=== PATIENT | male | born 1960 | race Caucasian/White ===

== ENCOUNTER 2020-08-04 14:40 | Outpatient (REF) | payer OTHER, SELFPAY ==
[2020-08-04 16:10] LABS: Glucose Urine UA NEG (NEG); Leukocyte Esterase Urine NEG (NEG); Nitrite Urine NEG (NEG); Specific Gravity - Urine 1.015 (1.005-1.025); Urine Blood NEG (NEG); Urine Ketones NEG (NEG); Urine Protein NEG (NEG-TRACE)
[2020-08-04 16:11] LABS: Appearance Urine CLEAR; Color Urine YELLOW
== END 2020-08-04 14:41 | disposition home or self-care (01) ==
LOC: HO.LAB 14:40
PROVIDERS: PCP Internal Medicine; Visit Provider Internal Medicine
DX: R30.0 Dysuria (principal); R35.0 Frequency of micturition
CPT/HCPCS: 81003; 87086

== ENCOUNTER 2021-02-08 19:09 | Emergency (ER) | payer OTHER, SELFPAY ==
--- NOTE | ~2021-02-08 | CT_ITS ---
EXAMINATION: CT ABDOMEN AND PELVIS WITH CONTRAST CLINICAL INFORMATION: Left lower quadrant, left flank pain COMPARISON: None TECHNIQUE: Multidetector volumetric images were obtained from the superior aspect of the liver through the pubic symphysis following administration 100 mL of Omnipaque 350 intravenous contrast. Sagittal and coronal reformatted images were obtained on the technologist's workstation. Oral contrast: No This CT examination was performed using dose optimization techniques as appropriate, variously including the following: *Automated exposure control *Adjustment of mA and/or kV according to patient size (this includes techniques or standardized protocols for targeted exams where dose is matched to indication/reason for exam; i.e. extremities or head) *Use of iterative reconstruction technique DLP: 99 mGy-cm FINDINGS: LUNG BASES: The visualized lung bases are unremarkable. LIVER, GALLBLADDER, AND BILIARY TREE: The liver is normal in size, shape, and attenuation. No focal hepatic lesion or biliary ductal dilatation is present. Cholelithiasis is noted. No appreciable gallbladder wall thickening or pericholecystic inflammation. PANCREAS: Unremarkable. SPLEEN: Unremarkable. ADRENAL GLANDS: Unremarkable. KIDNEYS AND URETERS: There is a distal left ureteral calculus measuring 3 mm with moderate hydronephrosis and perinephric stranding. Left nephrogram is also slightly delayed. A few hypodense left renal lesions favor cysts measuring up to 7.3 cm, and this largest cyst contains scattered peripheral curvilinear calcification measuring up to 2 mm in thickness. Small cysts are also noted in the right kidney. No right-sided hydronephrosis or obstructive calculus. BLADDER: Minimally distended and grossly unremarkable. GASTROINTESTINAL TRACT: No evidence of bowel obstruction or significant wall thickening. The appendix is unremarkable. No free fluid or free air is seen. ABDOMINAL WALL: No significant hernia is appreciated. LYMPH NODES: Normal. VASCULAR: Unremarkable. PELVIC VISCERA: Unremarkable. OSSEOUS STRUCTURES: Scattered degenerative changes are noted in the spine. CT/CT abdomen pelvis w con IMPRESSION: 1. Distal left ureteral calculus measuring 3 mm with moderate hydronephrosis. 2. Bilateral renal cysts, measuring up to 7.3 cm in the left kidney with scattered peripheral calcifications. Appearance favors a minimally complex cyst (Bosniak IIF), for which follow-up imaging is recommended at 6 months, 12 months, and then annually for 5 years. 3. Cholelithiasis. Fleischner guidelines were followed.
[2021-02-08 20:16] VITALS: BP 151/71; PULSE 64; RESP 20; TEMP 36.8; O2SAT 95; BMI 40.1
--- NOTE | 2021-02-08 22:43 | ED_ITS ---
HPI - Abdominal Pain General Chief Complaint: Abdominal Pain Stated Complaint: constipated and lower abd pain Time Seen by Provider: 02/08/21 22:40 Source: patient Limitations: no limitations History of Present Illness HPI narrative: This is a 60-year-old male who complains of pain in his left lower abdomen and left lower back. The patient had had diarrhea a few days ago. He has also had a head cold with postnasal drip for several days and also had noted that it increased mucus production per rectum in the last few days. He did have a bowel movement yesterday. Today in order to try to get rid of the mucus, thick [place] magnesia at around 10:00 o'clock this morning. Subsequently had some nausea and vomiting. His pain is minor now. He denies any dysuria or urinary frequency or hematuria. Has noted the last month that he has had sometimes a sudden urge to urinate. He denies any fever. Denies any cough or shortness of breath. Related Data Previous Rx's Medication Instructions Recorded ibuprofen 600 mg tablet 600 mg PO Q6H PRN #30 tab 02/09/21 ondansetron HCl 4 mg tablet 4 mg PO Q6H PRN #10 tab 02/09/21 tamsulosin 0.4 mg capsule (Flomax) 0.4 mg PO BEDTIME #14 cap 02/09/21 Allergies Allergy/AdvReac Type Severity Reaction Status Date / Time No Known Allergies Allergy Unverified 10/28/19 16:29 Review of Systems Review of Systems Yes all other systems are reviewed and are negative Constitutional: Reports as per HPI Eyes: Reports as per HPI and Reports no additional eye complaints Reports nasal congestion and Reports nasal discharge Cardiovascular: Denies chest pain and Denies dyspnea Respiratory: Denies cough and Denies dyspnea Gastrointestinal: Reports abdominal pain Genitourinary: Reports as per HPI Musculoskeletal: Reports no additional musculoskeletal complaints and Denies numbness Skin/Breast: Reports as per HPI and Denies rash Reports as per HPI, Denies focal weakness, Denies numbness and Denies Sensory deficit (Neuro) Psychiatric: Reports no additional psychiatric complaints and Reports as per HPI Endocrine: Reports no additional endocrine complaints and Reports as per HPI Hematologic/Lymphatic: Reports no additional hematologic/lymphatic complaints, Reports as per HPI and Reports other (No peripheral edema) Physical Exam Vital Signs: Vital Signs: Last Vital Signs Temp 98.3 F 02/08/21 20:16 Pulse 64 02/08/21 20:16 Resp 20 02/08/21 20:16 BP 151/71 H 02/08/21 20:16 Pulse Ox 95 02/08/21 20:16 BMI result Body Mass Index 40.1 Const: Other: Patient not ill-appearing, readily sits up and stands up, has no abdominal tenderness General: cooperative, no acute distress and alert Orientation/consciousness: patient oriented x3 HENMT: Head: Yes normal to inspection Eyes: General: appearance normal, both eyes and all related structures Eyelids: Yes eyelids normal Conjunctivae: conjunctivae normal Pupils: Equal, round and reactive pupils present Neck: Neck: Yes normal visual inspection and Yes supple Chest: Chest palpation & inspection: normal inspection of the chest Resp: Effort & Inspection: normal respiratory effort Auscultation: clear to auscultation bilaterally Cardio: Rate: regular rate Rhythm: regular rhythm Heart sounds: S1 normal heart sound present, S2 normal heart sound present, no gallops, no murmurs and no rubs GI: Palpation (GI): Soft to palpation, nontender and Other GI palpation findings present (Non-distended) Auscultation: normal bowel sounds Skin: General skin exam: no rashes or lesions noted Neuro: General: patient oriented x3, no focal motor deficits and CN's II-XI intact bilaterally Cranial nerves: Yes Equal, round and reactive pupils present Cognition (Neuro): normal cognition Motor exam (neuro): 5/5 motor strength present throughout Sensory Exam: No Sensory deficit (Neuro) Extrem: General: Yes normal to inspection and Yes no pedal edema Psych: Appearance: grossly normal Affect: normal affect MDM - Abdominal Pain MDM Narrative Medical decision making narrative: patient with mild left lower quadrant and left lower back pain her few days. Patient had noted mucoid stool and had taken milk of magnesia had subsequent nausea and vomiting. Patient had a benign abdominal exam. Microscopic hematuria recess patient for kidney stone, though given theelevated white blood cell count, and intestinal process such as diverticulitis was also in the differential. Patient was improved with Toradol 15 mg IV and was able to fall asleep. Patient has a 3 mm left-sided ureteral stone with moderate hydronephrosis, also has renal cysts which require follow- up. Patient is being referred to Urology and started on Flomax, ibuprofen, Zofran Lab Data Attestation: I reviewed the patient's lab results. Result diagrams: 02/08/21 23:08 02/08/21 23:08 Labs: Lab Results 02/08/21 02/08/21 02/08/21 Range/Units 23:07 23:08 23:08 WBC 16.2 H (4.8-10.8) X10*3/uL RBC 5.45 (4.60-5.80) X10*6/uL Hgb 16.6 (14.0-18.0) g/dl Hct 48.3 (42.0-52.0) % MCV 88.6 (80.0-98.0) fL MCH 30.5 (27.0-33.0) pg MCHC 34.4 (31.0-36.0) g/dl RDW 12.9 (11.0-16.0) % Plt Count 219 (160-400) X10*3/uL MPV 9.6 (9.4-12.4) fL Immature Gran % (Auto) 0.4 (0.0-0.4) % Neut % (Auto) 82.7 H (45-73) % Lymph % (Auto) 6.2 L (20-40) % [place] % (Auto) 10.1 (2-11) % Eos % (Auto) 0.1 (0-4) % Baso % (Auto) 0.5 (0-2) % Lymph # (Auto) 1.0 L (1.2-4.9) X10*3/uL [place] # (Auto) 1.6 H (0.1-1.2) X10*3/uL Eos # (Auto) 0.0 (0.0-0.4) X10*3/uL Baso # (Auto) 0.1 (0.0-0.2) X10*3/uL Abs Immat Gran (auto) 0.06 H (0.00-0.03) X10*3/uL Absolute Neuts (auto) 13.4 H (2.0-8.3) x10*3/uL Absolute Nucleated RBC 0.000 (0.0-0.012) X10*3/uL Nucleated RBC % (auto) 0.0 (0.0-0.2) /100WBC Smear Tech's Comments VERIFIED Sodium 138 (135-145) mmol/L Potassium 4.3 (3.3-5.1) mmol/L Chloride 99 (96-108) mmol/L Carbon Dioxide 31 H (22-29) mmol/L Anion Gap 12 (12-20) BUN 13 (9-16) mg/dL Creatinine 1.43 H (0.5-1.4) mg/dL Estim Creat Clear Calc 74.4 Estimated GFR 51 Random Glucose 124 H (60-115) mg/dL Calcium 9.2 (8.4-10.2) mg/dL Total Bilirubin 1.2 H (0.0-1.0) mg/dL AST 22 (5-37) U/L ALT 31 (0-40) U/L Alkaline Phosphatase 97 (39-117) U/L Total Protein 7.7 (6.5-8.0) g/dL Albumin 4.4 (3.5-5.0) g/dL Urine Color YELLOW Urine Appearance CLEAR Urine pH 7.0 (5.0-8.0) Ur Specific [place] 1.020 (1.005-1.025) Urine Protein 1+ H (NEG-TRACE) MG/DL Urine Glucose (UA) NEG (NEG) MG/DL Urine Ketones 5 (NEG) MG/DL Urine Blood 1+ H (NEG) Urine Nitrite NEG (NEG) Ur Leukocyte Esterase NEG (NEG) Urine RBC 5-9 H (0) /HPF Urine WBC 0-2 (0-4) /HPF Ur Squamous Epith Cells TRACE /LPF Urine Bacteria NONE /LPF COVID-19 (BRIGIDO) (Negative) COVID-19 Clin Com 02/08/21 Range/Units 23:08 WBC (4.8-10.8) X10*3/uL RBC (4.60-5.80) X10*6/uL Hgb (14.0-18.0) g/dl Hct (42.0-52.0) % MCV (80.0-98.0) fL MCH (27.0-33.0) pg MCHC (31.0-36.0) g/dl RDW (11.0-16.0) % Plt Count (160-400) X10*3/uL MPV (9.4-12.4) fL Immature Gran % (Auto) (0.0-0.4) % Neut % (Auto) (45-73) % Lymph % (Auto) (20-40) % [place] % (Auto) (2-11) % Eos % (Auto) (0-4) % Baso % (Auto) (0-2) % Lymph # (Auto) (1.2-4.9) X10*3/uL [place] # (Auto) (0.1-1.2) X10*3/uL Eos # (Auto) (0.0-0.4) X10*3/uL Baso # (Auto) (0.0-0.2) X10*3/uL Abs Immat Gran (auto) (0.00-0.03) X10*3/uL Absolute Neuts (auto) (2.0-8.3) x10*3/uL Absolute Nucleated RBC (0.0-0.012) X10*3/uL Nucleated RBC % (auto) (0.0-0.2) /100WBC Smear Tech's Comments Sodium (135-145) mmol/L Potassium (3.3-5.1) mmol/L Chloride (96-108) mmol/L Carbon Dioxide (22-29) mmol/L Anion Gap (12-20) BUN (9-16) mg/dL Creatinine (0.5-1.4) mg/dL Estim Creat Clear Calc Estimated GFR Random Glucose (60-115) mg/dL Calcium (8.4-10.2) mg/dL Total Bilirubin (0.0-1.0) mg/dL AST (5-37) U/L ALT (0-40) U/L Alkaline Phosphatase (39-117) U/L Total Protein (6.5-8.0) g/dL Albumin (3.5-5.0) g/dL Urine Color Urine Appearance Urine pH (5.0-8.0) Ur Specific [place] (1.005-1.025) Urine Protein (NEG-TRACE) MG/DL Urine Glucose (UA) (NEG) MG/DL Urine Ketones (NEG) MG/DL Urine Blood (NEG) Urine Nitrite (NEG) Ur Leukocyte Esterase (NEG) Urine RBC (0) /HPF Urine WBC (0-4) /HPF Ur Squamous Epith Cells /LPF Urine Bacteria /LPF COVID-19 (BRIGIDO) Negative (Negative) COVID-19 Clin Com See Note Imaging Data CT of the abdomen pelvis with IV contrast: Radiologist's impression: IMPRESSION: 1.? Distal left ureteral calculus measuring 3 mm with moderate hydronephrosis.? 2.? Bilateral renal cysts, measuring up to 7.3 cm in the left kidney with scattered peripheral calcifications. Appearance favors a minimally complex cyst (Bosniak IIF), for which follow-up imaging is recommended at 6 months, 12 months, and then annually for 5 years. 3.? Cholelithiasis. Discharge Plan Discharge Clinical Impression: Colic, ureteral, Renal cyst Patient Disposition: Home, Self-Care Instructions: Renal Colic (ED), Kidney Cyst (ED) Additional Instructions: use the Flomax as prescribed to help the kidney stone pass. Use ibuprofen for pain. Used density done as prescribed for nausea. Follow-up with Urology. Need to have repeat imaging of your kidneys done in 6 months to re-evaluate your cysts. Follow-up with your primary care physician with Urologyregarding this. Return for any new or worsened symptoms Prescriptions: New tamsulosin [Flomax] 0.4 mg capsule 0.4 mg PO BEDTIME Qty: 14 RF: 0 ondansetron HCl 4 mg tablet 4 mg PO Q6H PRN (Reason: nausea and vomiting) Qty: 10 RF: 0 ibuprofen 600 mg tablet 600 mg PO Q6H PRN (Reason: pain) Qty: 30 RF: 0 Referrals: Rafael Garcia MD [Physician] - 2 days [facility] Past Medical History Medical History (Updated 02/09/21 @ 00:48 by Phan Pineda MD) High cholesterol Hypertension Social History Social History Patient Tobacco Use Status: Never used Tobacco Use of substances other than those prescribed or required for medical reasons: No Advance Directives: No Advance Directives Information Provided: No
--- NOTE | 2021-02-08 22:46 | PC.NURSE ---
pt a&o, no sob or chest pain, pt reports having a head cold last week. he reports having mucus stool and watery. pt able to walk out of bed wit a steady gait.
[2021-02-08] MEDS: Ketorolac Tromethamine 30 MG/ML VIAL 15 MG IVPUSH (23:12)
[2021-02-08 23:13] LABS: Basophils Absolute Auto 0.1 X10*3/uL (0.0-0.2); Basophils Percent Auto 0.5 % (0-2); Eosinophils Percent Auto 0.1 % (0-4); Hematocrit 48.3 % (42.0-52.0); Hemoglobin 16.6 g/dl (14.0-18.0); Imm Gran Abs Auto 0.06 X10*3/uL (0.00-0.03); Imm Gran Pct Auto 0.4 % (0.0-0.4); Lymphocytes Percent Auto 6.2 % (20-40); MANUAL DIFF FLAG SCAN; Mean Corpuscular HGB Conc 34.4 g/dl (31.0-36.0); Mean Corpuscular Hemoglobin 30.5 pg (27.0-33.0); Mean Corpuscular Volume 88.6 fL (80.0-98.0); Mean Platelet Volume 9.6 fL (9.4-12.4); Monocytes Absolute Auto 1.6 X10*3/uL (0.1-1.2); Monocytes Percent Auto 10.1 % (2-11); Neutrophils Absolute Auto 13.4 x10*3/uL (2.0-8.3); Neutrophils Percent Auto 82.7 % (45-73); Platelet Count 219 X10*3/uL (160-400); Red Blood Count 5.45 X10*6/uL (4.60-5.80); Red Cell Distribution Width 12.9 % (11.0-16.0); SCAN SMEAR FLAG 1; White Blood Count 16.2 X10*3/uL (4.8-10.8)
[2021-02-08 23:23] LABS: Appearance Urine CLEAR; Color Urine YELLOW; Glucose Urine UA NEG (NEG); Leukocyte Esterase Urine NEG (NEG); Nitrite Urine NEG (NEG); UACC Culture Trigger NO; Urine Blood 1+ (NEG); Urine Ketones 5 MG/DL (NEG); Urine Protein 1+ MG/DL (NEG-TRACE)
[2021-02-08 23:27] LABS: COVID-19 Test Negative (Negative)
[2021-02-08 23:29] LABS: Squamous Epithelial Cell Urine TRACE /LPF; WBC Urine 0-2 /HPF (0-4)
--- NOTE | 2021-02-08 23:29 | PC.NURSE ---
repositioned pt, iv placed, labs collected and medicated per Apr.
[2021-02-08 23:30] LABS: SLIDE REVIEW VERIFIED
[2021-02-08 23:34] LABS: Alanine Aminotransferase 31 U/L (0-40); Albumin Level 4.4 g/dL (3.5-5.0); Alkaline Phosphatase 97 U/L (39-117); Anion Gap 12 (12-20); Aspartate Amino Transferase 22 U/L (5-37); Bilirubin Total 1.2 mg/dL (0.0-1.0); Blood Urea Nitrogen 13 mg/dL (9-16); Calcium 9.2 mg/dL (8.4-10.2); Carbon Dioxide 31 mmol/L (22-29); Chloride 99 mmol/L (96-108); Creatinine Clr Calc Pharmacy 74.4; Estimated Glomerular Filt Rate 51; Glucose Random 124 mg/dL (60-115); Potassium 4.3 mmol/L (3.3-5.1); Sodium 138 mmol/L (135-145); Total Protein 7.7 g/dL (6.5-8.0)
[2021-02-08] MEDS: iohexoL 350 MG/ML 100 ML INFUS..BTL IV (23:58)
[2021-02-09 01:03] VITALS: BP 128/64; PULSE 65; RESP 15; TEMP 36.8; O2SAT 94
== END 2021-02-09 01:17 | disposition home or self-care (01) ==
PROVIDERS: Emergency Provider Emergency Medicine; PCP Internal Medicine
DX: K59.00 Constipation, unspecified (principal); N28.1 Cyst of kidney, acquired; N28.89 Other specified disorders of kidney and ureter; Z79.899 Other long term (current) drug therapy; Z20.822 Contact with and (suspected) exposure to COVID-19
CPT/HCPCS: 36415; 74177; 80053; 81001; 85025; 87635; 96374; 99284; J1885; Q9967

== ENCOUNTER 2021-02-15 12:46 | Outpatient (REF) | payer OTHER, SELFPAY ==
[2021-02-15 14:42] LABS: Anion Gap 10 (12-20); Blood Urea Nitrogen 13 mg/dL (9-16); Calcium 9.2 mg/dL (8.4-10.2); Carbon Dioxide 31 mmol/L (22-29); Chloride 105 mmol/L (96-108); Estimated Glomerular Filt Rate > 60; Glucose Random 98 mg/dL (60-115); Potassium 4.5 mmol/L (3.3-5.1); Sodium 141 mmol/L (135-145)
== END 2021-02-15 12:47 | disposition home or self-care (01) ==
LOC: HO.10HDL 12:46
PROVIDERS: Visit Provider Internal Medicine
DX: I10 Essential (primary) hypertension (principal)
CPT/HCPCS: 36415; 80048

== ENCOUNTER 2021-02-21 12:00 | Outpatient (REF) | payer OTHER, SELFPAY ==
--- NOTE | ~2021-02-21 | US_ITS ---
EXAMINATION: US RETROPERITONEAL COMPLETE (RENAL) CLINICAL INFORMATION: Left renal stone. COMPARISON: CT abdomen/pelvis 01/09/2021 TECHNIQUE: Real-time imaging of the kidneys and bladder. FINDINGS: RIGHT KIDNEY: 12.6 x 5.4 x 5.6 cm (SAG x AP x TRV). The kidney is normal in size, contour, and echogenicity. Renal cortical thickness is normal. No calculi. No hydronephrosis. Midpole cyst measures 6 x 6 x 6 mm. Lower pole cyst measures 7 x 6 x 8 mm. LEFT KIDNEY: 13.2 x 5.8 x 6.1 cm (SAG x AP x TRV). The kidney is normal in size, contour, and echogenicity. Renal cortical thickness is normal. No calculi. No hydronephrosis. Complex lower pole cyst with echogenic debris measures 8.0 x 5.0 x 6.5 cm. Midpole cyst measures 2.0 x 2.1 x 2.5 cm. Lower pole cyst measures 1.1 x 0.8 x 0.7 cm. BLADDER: Well distended and normal. Bilateral ureteral jets are demonstrated. Prevoid bladder volume is 382 mL. Postvoid bladder volume is 55 mL. US/US retroperitoneal comp IMPRESSION: Bilateral renal cysts including a complex dominant left lower pole cyst with echogenic debris. Short interval follow-up is recommended. Small postvoid residual volume in the urinary bladder.
== END 2021-02-21 12:01 | disposition home or self-care (01) ==
LOC: HO.US 12:00
PROVIDERS: PCP Internal Medicine; Visit Provider Internal Medicine
DX: N13.2 Hydronephrosis with renal and ureteral calculous obstruction (principal)
CPT/HCPCS: 76770

== ENCOUNTER → 2021-03-05 14:19 | Outpatient (BNVA) | payer OTHER, SELFPAY | PROVIDERS: PCP Internal Medicine ==

== ENCOUNTER 2021-05-14 13:45 | Outpatient (REF) | payer OTHER, SELFPAY ==
--- NOTE | ~2021-05-14 | US_ITS ---
EXAMINATION: US RETROPERITONEAL LIMITED (RENAL ONLY) CLINICAL INFORMATION: Calculus of kidney. COMPARISON: None TECHNIQUE: Real-time imaging of the kidneys. FINDINGS: RIGHT KIDNEY: 12.4 x 5.1 x 6.5 cm (SAG x AP x TRV). The kidney is normal in size, contour, and echogenicity. Renal cortical thickness is normal. No renal calculi or hydronephrosis. There are multiple anechoic liver cysts. The largest cyst midpole measures 1.7 x 2.0 x 1.6 cm. LEFT KIDNEY: 12.6 x 7.0 x 6.2 cm (SAG x AP x TRV). The kidney is normal in size, contour, and echogenicity. Renal cortical thickness is normal. There are no echogenic renal calculi. There is a prominent extrarenal pelvis or hydronephrosis. There are multiple anechoic liver cysts. The largest in mid to lower pole lateral cortex measures 8.0 x 4.7 x 7.5 cm. Previously it was reported as complex in the lower pole and measured 8.0 x 5.0 x 6.5 cm. US/US renal BI IMPRESSION: Bilateral renal cysts. Mild hydronephrosis versus extrarenal pelvis left kidney.
== END 2021-05-14 13:46 | disposition home or self-care (01) ==
LOC: HO.US 13:45
DX: N20.0 Calculus of kidney (principal)
CPT/HCPCS: 76775

== ENCOUNTER → 2021-06-01 14:50 | Outpatient (BNVA) | payer OTHER, SELFPAY | PROVIDERS: PCP Internal Medicine | DX: Z13.89 Encounter for screening for other disorder (principal) ==

== ENCOUNTER → 2021-07-13 13:56 | Outpatient (REF) | payer OTHER, SELFPAY ==
--- NOTE | 2021-07-13 14:00 | CA_ITS ---
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 Mildly dilated left ventricle with normal LV systolic function with LVEF of 60 65% 2. Normal cardiac valvular Doppler with no clear evidence of mitral valve prolapse on this study 3. Normal RV systolic pressure 4. No gross pericardial effusion Findings Procedure Information Contrast agent, definity, is being given per protocol without apparent complications. Left Ventricle Mildly increased left ventricular cavity size. There is normal left ventricular wall thickness. The left ventricular systolic function is normal. The visually estimated ejection fraction is between 60-65%. Spectral Doppler is indicative of a normal filling pattern. Right Ventricle The right ventricle was not well visualized. Atria The left atrium is likely dilated. There is lipomatous hypertrophy of the interatrial septum. There is no evidence of interatrial shunt. The right atrium was not well visualized. Aortic Valve Normal aortic valve structure and function. There is no aortic valve stenosis. There is no aortic valve regurgitation. Mitral Valve There is mild anterior mitral leaflet thickening. There is no mitral valve prolapse. There is no mitral valve regurgitation. There is no mitral valve stenosis. Pulmonic Valve The pulmonic valve was not well visualized. Tricuspid Valve Likely normal tricuspid valve structure and function. There is trace tricuspid valve regurgitation. The right ventricular systolic pressure is normal. The right ventricular systolic pressure is 13 mmHg. Normal right atrial pressure. There is no evidence of pulmonary hypertension. Great Vessels All visible segments of the aorta are normal in size. The pulmonary artery was not well visualized. Venous The inferior vena cava is normal in size and collapses greater than 50% with inspiration. Pericardium/Pleural There is no evidence of pericardial effusion. Prior Study Comparison No prior study available for comparison. Measurements 2D Linear Measurements IVSd: 1.05 0.6-0.9/0.6-1.0 cm LVIDd: 5.81 3.9-5.3/4.2-5.9 cm LVIDd Index: 2.40 2.4-3.2/2.2-3.1 cm/m2 LVIDs: 3.64 2.0-3.6 cm LVPWd: 0.98 0.7-1.1 cm LA Diam: 4.20 2.7-3.8/3.0-4.0 cm LAIDs Index: 1.74 1.5-2.3 cm/m2 LV Mass: 297.58 67-162/88-224 g LV Mass Index: 122.97 43-95/49-115 g/m2 LVOT Diam: 2.40 3.0+(-)1.3 cm 2D Systolic Function EF 4C: 67.20 >55% EF 2C: 59.00 >55% EF BiP: 63.30 >55% Mitral Valve MV Pk E: 0.70 MV PK A: 0.61 MV Decel Time: 180.00 E/A: 1.20 E'Lateral: 14.00 E'Medial: 12.30 E/E' Med: 5.70 E/E' Lat: 5.00 PHT: 53.00 MVA PHT: 4.15 Decel [place]: 3.92 Aortic Valve AoV Pk [place]: 1.64 AoV Mn [place]: 1.16 AoV VTI: 0.28 AoV Pk Grad: 11.00 Aov Mn Grad: 6.00 MARLON Cont.VTI: 3.03 LVOT LVOT Pk [place]: 1.01 LVOT Mn [place]: 0.70 LVOT VTI: 0.19 LVOT Pk Grad: 4.00 LVOT Mn Grad: 2.00 LVOT Diam: 2.40 LVOT Area: 4.52 Diastolic Function MV Pk E: 0.70 MV Pk A: 0.61 E/A: 1.20 E'Medial: 12.30 E/E' Med: 5.70 E' Laterial: 14.00 E/E' Lat: 5.00 Right Ventricle TAPSE (mm): 24.00 TVS' [place]: 15.00 Tricuspid Valve TR Pk [place]: 1.60 TR Pk Grad: 10.00 RA Press: 3.00 RVSP: 13.00 Great Vessels Aorta Ao Asc: 3.70 2.1-3.4 cm Updated in Other Vendor System with Status of Final Abhijeet Mar MD electronically signed on 07/14/2021 12:39:41 PM with status of Final
== END ==
LOC: HO.CARD 13:56
PROVIDERS: PCP Internal Medicine; Visit Provider Internal Medicine
DX: I34.1 Nonrheumatic mitral (valve) prolapse (principal); I45.10 Unspecified right bundle-branch block; I44.4 Left anterior fascicular block
CPT/HCPCS: 93306; Q9957

== ENCOUNTER 2021-08-21 12:44 | Outpatient (REF) | payer OTHER, SELFPAY ==
[2021-08-21 12:53] LABS: MANUAL DIFF FLAG NO
[2021-08-21 13:22] LABS: Basophils Absolute Auto 0.1 X10*3/uL (0.0-0.2); Basophils Percent Auto 0.8 % (0-2); Eosinophils Absolute Auto 0.2 X10*3/uL (0.0-0.4); Eosinophils Percent Auto 1.6 % (0-4); Hematocrit 45.1 % (42.0-52.0); Hemoglobin 15.2 g/dl (14.0-18.0); Imm Gran Abs Auto 0.04 X10*3/uL (0.00-0.03); Imm Gran Pct Auto 0.4 % (0.0-0.4); Lymphocytes Absolute Auto 1.8 X10*3/uL (1.2-4.9); Lymphocytes Percent Auto 19.1 % (20-40); Mean Corpuscular HGB Conc 33.7 g/dl (31.0-36.0); Mean Corpuscular Hemoglobin 29.7 pg (27.0-33.0); Mean Corpuscular Volume 88.3 fL (80.0-98.0); Mean Platelet Volume 9.6 fL (9.4-12.4); Monocytes Absolute Auto 0.7 X10*3/uL (0.1-1.2); Monocytes Percent Auto 7.6 % (2-11); Neutrophils Absolute Auto 6.5 x10*3/uL (2.0-8.3); Neutrophils Percent Auto 70.5 % (45-73); Platelet Count 240 X10*3/uL (160-400); Red Blood Count 5.11 X10*6/uL (4.60-5.80); Red Cell Distribution Width 13.5 % (11.0-16.0); White Blood Count 9.2 X10*3/uL (4.8-10.8)
[2021-08-21 13:55] LABS: Alanine Aminotransferase 33 U/L (0-40); Albumin Level 4.2 g/dL (3.5-5.0); Alkaline Phosphatase 79 U/L (39-117); Anion Gap 11 (12-20); Aspartate Amino Transferase 25 U/L (5-37); Bilirubin Total 0.8 mg/dL (0.0-1.0); Blood Urea Nitrogen 12 mg/dL (9-16); Carbon Dioxide 28 mmol/L (22-29); Chloride 105 mmol/L (96-108); Cholesterol 115 mg/dL; Estimated Glomerular Filt Rate > 60; Glucose Fasting 88 mg/dL (60-99); HDL Cholesterol 38 mg/dL; LDL Cholesterol Calculated 61 mg/dl; Potassium 4.5 mmol/L (3.3-5.1); Sodium 139 mmol/L (135-145); Triglycerides 80 mg/dL
[2021-08-21 14:18] LABS: Prostate Specific Antigen 0.46 ng/mL (<0.05-4.0)
== END 2021-08-21 12:45 | disposition home or self-care (01) ==
LOC: HO.LAB 12:44
PROVIDERS: PCP Internal Medicine; Visit Provider Internal Medicine
DX: Z00.00 Encounter for general adult medical examination without abnormal findings (principal); Z12.5 Encounter for screening for malignant neoplasm of prostate
CPT/HCPCS: 36415; 80053; 80061; 84153; 85025

== ENCOUNTER 2022-05-27 08:19 | Outpatient (REF) | payer OTHER, SELFPAY ==
--- NOTE | ~2022-05-27 | US_ITS ---
EXAMINATION: US RETROPERITONEAL LIMITED (RENAL ONLY) CLINICAL INFORMATION: Cyst of kidney, acquired. COMPARISON: Ultrasound retroperitoneal limited (renal only) 05/14/2021. Ultrasound retroperitoneal complete (renal) 02/21/2021. CT abdomen and pelvis with contrast 02/08/2021. TECHNIQUE: Real-time imaging of the kidneys. FINDINGS: RIGHT KIDNEY: 13.1 x 6.6 x 7.4 cm (SAG x AP x TRV). The kidney is normal in size, contour, and echogenicity. Renal cortical thickness is normal. No renal calculi or hydronephrosis. 2.1 cm simple cyst in the mid kidney. 0.8 cm simple cyst in the mid kidney. LEFT KIDNEY: 13.3 x 8.5 x 5.3 cm (SAG x AP x TRV). The kidney is normal in size, contour, and echogenicity. Renal cortical thickness is normal. No renal calculi or hydronephrosis. 7.5 cm unilocular cyst with layering debris in the lower pole. 2.6 cm simple cyst in the midpole. 1.8 cm simple cyst in the midpole. 1.2 cm simple cyst in the midpole. 2.7 cm simple cyst in the midpole US/US renal BI IMPRESSION: Stable 7.5 cm unilocular cyst in the lower pole the left kidney with layering debris. This has been previously designated Bosniak 2F based on CT 02/08/2021. Recommend continued annual follow-up out to 5 years as previously recommended. The simple cyst requiring no follow-up.
== END 2022-05-27 08:20 | disposition home or self-care (01) ==
LOC: HO.US 08:19
PROVIDERS: PCP Internal Medicine; Visit Provider Nurse Practitioner Family
DX: N20.0 Calculus of kidney (principal); N28.1 Cyst of kidney, acquired
CPT/HCPCS: 76775

== ENCOUNTER → 2022-06-03 14:11 | Outpatient (BNVA) | payer OTHER, SELFPAY | PROVIDERS: PCP Internal Medicine; Visit Provider Nurse Practitioner Family | DX: Z13.89 Encounter for screening for other disorder (principal) ==

== ENCOUNTER 2023-03-15 07:32 | Outpatient (REF) | payer OTHER, SELFPAY ==
[2023-03-15 07:59] LABS: MANUAL DIFF FLAG NO
[2023-03-15 09:15] LABS: Basophils Absolute Auto 0.1 X10*3/uL (0.0-0.2); Basophils Percent Auto 1.1 % (0-2); Eosinophils Absolute Auto 0.1 X10*3/uL (0.0-0.4); Eosinophils Percent Auto 1.9 % (0-4); Hematocrit 46.8 % (42.0-52.0); Hemoglobin 15.9 g/dl (14.0-18.0); Imm Gran Abs Auto 0.03 X10*3/uL (0.00-0.03); Imm Gran Pct Auto 0.4 % (0.0-0.4); Lymphocytes Absolute Auto 1.5 X10*3/uL (1.2-4.9); Lymphocytes Percent Auto 20.2 % (20-40); Mean Corpuscular Hemoglobin 30.1 pg (27.0-33.0); Mean Corpuscular Volume 88.5 fL (80.0-98.0); Mean Platelet Volume 10.8 fL (9.4-12.4); Monocytes Absolute Auto 0.7 X10*3/uL (0.1-1.2); Monocytes Percent Auto 9.3 % (2-11); Neutrophils Absolute Auto 4.8 x10*3/uL (2.0-8.3); Neutrophils Percent Auto 67.1 % (45-73); Platelet Count 228 X10*3/uL (160-400); Red Blood Count 5.29 X10*6/uL (4.60-5.80); Red Cell Distribution Width 13.3 % (11.0-16.0); White Blood Count 7.2 X10*3/uL (4.8-10.8)
[2023-03-15 10:17] LABS: Alanine Aminotransferase 37 U/L (0-40); Albumin Level 4.2 g/dL (3.5-5.0); Alkaline Phosphatase 78 U/L (39-117); Anion Gap 11 (12-20); Aspartate Amino Transferase 27 U/L (5-37); Bilirubin Total 0.6 mg/dL (0.0-1.0); Blood Urea Nitrogen 18 mg/dL (9-16); Calcium 9.4 mg/dL (8.4-10.2); Carbon Dioxide 27 mmol/L (22-29); Chloride 107 mmol/L (96-108); Cholesterol 103 mg/dL (<200); Estimated Glomerular Filt Rate > 60; Glucose Random 100 mg/dL (60-115); HDL Cholesterol 36 mg/dL (>40); LDL Cholesterol Calculated 56 mg/dL (<100); Potassium 4.4 mmol/L (3.3-5.1); Sodium 141 mmol/L (135-145); Total Protein 7.4 g/dL (6.5-8.0); Triglycerides 57 mg/dL (<150)
[2023-03-15 10:25] LABS: Prostate Specific Antigen 0.33 ng/mL (<0.05-4.0)
== END 2023-03-15 07:33 | disposition home or self-care (01) ==
LOC: HO.LAB 07:32
PROVIDERS: PCP Internal Medicine; Visit Provider Internal Medicine
DX: Z12.5 Encounter for screening for malignant neoplasm of prostate (principal); E78.00 Pure hypercholesterolemia, unspecified; I10 Essential (primary) hypertension; N40.0 Benign prostatic hyperplasia without lower urinary tract symptoms
CPT/HCPCS: 36415; 80053; 80061; 84153; 85025

== ENCOUNTER 2023-05-21 14:04 | Outpatient (REF) | payer OTHER, SELFPAY ==
--- NOTE | ~2023-05-21 | US_ITS ---
EXAMINATION: US RETROPERITONEAL LIMITED (RENAL ONLY) CLINICAL INFORMATION: Cyst of kidney, acquired. COMPARISON: Renal ultrasound 05/27/2022 and 05/14/2021. CT abdomen and pelvis 02/08/2021. TECHNIQUE: Real-time imaging of the kidneys. FINDINGS: RIGHT KIDNEY: 12.4 x 5.3 x 6.4 cm (SAG x AP x TRV). The kidney is normal in size, contour, and echogenicity. Renal cortical thickness is normal. No renal calculi or hydronephrosis. 1.9 cm simple cyst in the mid kidney. No imaging follow-up is recommended. LEFT KIDNEY: 11.9 x 5.7 x 5.2 cm (SAG x AP x TRV). The kidney is normal in size, contour, and echogenicity. Renal cortical thickness is normal. No renal calculi or hydronephrosis. There are multiple simple cysts, largest measuring 6.3 cm. Previous measurements across modalities range 7.3-8.0 cm. This dominant cyst was designated Bosniak [address]F [address] CT scan due to mural calcification which is not appreciated by ultrasound. Continued follow-up is recommended. US/US renal BI IMPRESSION: Stable/mildly decreased 6.3 cm cyst in the left kidney which is considered Bosniak 2F by prior CT scan. Continued annual follow-up is recommended.
== END 2023-05-21 14:05 | disposition home or self-care (01) ==
LOC: HO.US 14:04
PROVIDERS: PCP Internal Medicine; Visit Provider Nurse Practitioner Family
DX: N28.1 Cyst of kidney, acquired (principal); N20.0 Calculus of kidney
CPT/HCPCS: 76775

== ENCOUNTER 2023-06-09 13:33 | Outpatient (AMB) | payer OTHER, SELFPAY ==
--- NOTE | 2023-06-09 13:29 | MHC.OFFVIS ---
Intake Visit Reasons: 1y/US(set) Intake Note: Patient is present for follow up ultrasound results, kidney stone, and renal cyst Urology Medications: vitamin B6 Blood Thinner: none Welder Explosion Required: No Accompanied by: Self / Same As Patient Allergies No Known Allergies Allergy (Verified 06/09/23 20:49) Medication List - Last Reconciled 06/09/23 by PORFIRIO Kinney lisinopril 5 mg PO DAILY loratadine 10 mg PO DAILY pyridoxine (vitamin B6) 50 mg PO DAILY 90 days simvastatin 20 mg PO DAILY HPI Comments Details: Oc is a pleasant 62 year old male patient of Dr. Manning. He has a past medical history of renal cysts, nephrolithiasis, gallstones, hypercholesteremia, and hypertension. He presents to the office today for a follow up of his nephrolithaisis and renal cysts. When asked he reports to be doing and feeling well. Recent renal imaging results reviewed with the patient. Stable/mildly decreased 6.3 cm cyst in the left kidney which is considered Bosniak [address] scan. Continued annual follow-up is recommended. When asked he currently denies any bothersome urinary issues or concerns. He denies urinary urgency, urinary frequency, incontinence, nocturia, hematuria, dysuria, foul smelling urine, changes to urinary stream, flank pain, fever, and or chills. Patient reports compliance with vitamin B6 and endorses to be drinking adequate amount of fluid daily. He is happy with his current voiding parameters. In office urinalysis results reviewed with the patient today. He otherwise offers no other issues or concerns at this time. In review of patient's chart it appears PSAs are as follows: 04/03 0.5, 04/05 0.3 PFSH Medical History Renal cyst Renal calculi Gallstones High cholesterol Hypertension Social History Patient Tobacco Use Status: Never used Tobacco Review of Systems Const Reports no additional complaints Eyes Reports no additional complaints ENT Reports no additional complaints Card Reports as per HPI Resp Reports no additional complaints GI Reports as per HPI Reports as per HPI Musc Reports no additional complaints Neuro Reports no additional complaints Psych Reports no additional complaints Endo Reports no additional complaints Bernardo/Lymph Reports no additional complaints Aller/Immun Reports no additional complaints Physical Exam Const General: cooperative, healthy appearing, comfortable, no acute distress, well developed, alert and awake Nutritional Appearance: overweight Orientation/consciousness: patient oriented x3 Limitations: no limitations HEENT Head: Yes normal to inspection, Yes normocephalic and Yes atraumatic Ears: hearing grossly normal bilaterally Eyes General: appearance normal, both eyes and all related structures Neck Neck: Yes normal visual inspection and Yes trachea midline Chest Chest palpation & inspection: normal inspection of the chest Resp Effort & Inspection: normal respiratory effort and able to speak in complete sentences Cardio Rate: regular rate GI Inspection: Yes normal to inspection General: Yes no CVA tenderness Back/Spine/Pelvis Back: no CVA tenderness Skin General skin exam: no rashes or lesions noted Neuro General: patient oriented x3 Extrem General: Yes normal to inspection Psych Appearance: grossly normal and well kempt Mental Status: mental status grossly normal Speech and movement: Normal speech and movement present and Clear speech present Affect: normal affect Attitude: cooperative Thought process: Normal thought process present Thought content: Normal thought content present Insight: Fair insight present (Psych) Judgement: Fair judgement present (Psych) Results AMB Urinalysis, Automated UA Leukoctes 0 Cary/uL Last Edit by [employer] on 06/09/23 13:45 UA Nitrite Negative Last Edit by [employer] on 06/09/23 13:45 UA Urobilinogen 0.2 mg/dL Last Edit by [employer] on 06/09/23 13:45 UA Protein 0 mg/dL Last Edit by [employer] on 06/09/23 13:45 UA pH 6.0 Last Edit by [employer] on 06/09/23 13:45 UA Blood 0 Malcolm/uL Last Edit by [employer] on 06/09/23 13:45 UA Specific [place] 1.015 Last Edit by [employer] on 06/09/23 13:45 UA Ketone Negative Last Edit by [employer] on 06/09/23 13:45 UA Bilirubin 0 mg/dL Last Edit by [employer] on 06/09/23 13:45 UA Glucose 0 mg/dL Last Edit by [employer] on 06/09/23 13:45 Results Reviewed Results Reviewed: Laboratory Last Values Urine pH (Auto) 6.0 06/09/23 13:32 Specific [place] (Auto) 1.015 06/09/23 13:32 Urine Protein (Auto) 0 mg/dL 06/09/23 13:32 Glucose (UA)(Auto) 0 mg/dL 06/09/23 13:32 Urine Ketones (Auto) Negative 06/09/23 13:32 Urine Blood (Auto) 0 Malcolm/uL 06/09/23 13:32 Urine Nitrite (Auto) Negative 06/09/23 13:32 Urine Bilirubin (Auto) 0 mg/dL 06/09/23 13:32 Urine Urobilinogen (Auto) 0.2 mg/dL 06/09/23 13:32 Leukocyte Esterase (Auto) 0 Cary/uL 06/09/23 13:32 Date of Service: 05/21/23 EXAMINATION: US RETROPERITONEAL LIMITED (RENAL ONLY) FINDINGS: RIGHT KIDNEY: 12.4 x 5.3 x 6.4 cm (SAG x AP x TRV). The kidney is normal in size, contour, and echogenicity. Renal cortical thickness is normal. No renal calculi or hydronephrosis. 1.9 cm simple cyst in the mid kidney. No imaging follow-up is recommended. LEFT KIDNEY: 11.9 x 5.7 x 5.2 cm (SAG x AP x TRV). The kidney is normal in size, contour, and echogenicity. Renal cortical thickness is normal. No renal calculi or hydronephrosis. There are multiple simple cysts, largest measuring 6.3 cm. Previous measurements across modalities range 7.3-8.0 cm. This dominant cyst was designated Bosniak 2F [address] CT scan due to mural calcification which is not appreciated by ultrasound. Continued follow-up is recommended. IMPRESSION: Stable/mildly decreased 6.3 cm cyst in the left kidney which is considered Bosniak 2F by prior CT scan. Continued annual follow-up is recommended. Assessment & Plan Assessment & Plan (1) Renal calculi: Code(s): N20.0 - Calculus of kidney Category: Medical (2) Renal cyst: Code(s): N28.1 - Cyst of kidney, acquired Category: Medical Plan In office urinalysis results reviewed with the patient today; as noted above. Recent renal imaging results reviewed with the patient today; as noted above. Patient currently denies any bothersome urinary issues or concerns. He is happy with his current voiding parameters. Will continue with surveillance monitoring of Bosniak 2 F cyst as recommended. Will obtain renal ultrasound in 1 year. Continue vitamin B6 as discussed and prescribed. Continue adding 1 oz of lemon juice to water daily. Discussed, educated, and stressed the importance of drinking water daily. Follow-up in 1 year with imaging to be completed prior; or sooner with any issues, concerns, and or questions. Orders: Orders AMB Urinalysis Automated Today Z13.9 - Encounter for screening, unspecified US renal BI 1 Year N20.0 - Calculus of kidney, N28.1 - Cyst of kidney, acquired Patient Instructions: The patient had an opportunity to ask questions regarding the treatment plan. All questions were answered. Physical exam, labs, and imaging were discussed and reviewed in detail. As well as risks, benefits, and discussion of treatment choices. No major barriers to understanding were identified. The patient expressed understanding and agreement with the above treatment plan. The patient was made aware they should contact our office by phone for worsening of their current condition, the appearance of new symptoms, or with any questions or concerns. Compliance is encouraged with any medications and follow up testing that is ordered. It is a privilege to be allowed the opportunity to participate in? your urological care.? Again, if you have any questions or concerns If you have any questions or concerns please do not hesitate to contact me. The office is [phone]. This note is constructed using voice recognition software. While every effort has been made to ensure accuracy ecmo specialist errors may have been included. Yours sincerely, PORFIRIO Kinney Coding Level of Care Code Est Pt Level 3 (20719) Diagnoses Renal calculi N20.0 Renal cyst N28.1
== END 2023-06-09 14:01 | disposition home or self-care (01) ==
PROVIDERS: Visit Provider Nurse Practitioner Family
DX: N20.0 Calculus of kidney (principal); N28.1 Cyst of kidney, acquired
CPT/HCPCS: 99213

== ENCOUNTER → 2023-06-09 13:33 | Outpatient (BNVA) | payer OTHER, SELFPAY | PROVIDERS: Visit Provider Nurse Practitioner Family | DX: N20.0 Calculus of kidney (principal); N28.1 Cyst of kidney, acquired | CPT/HCPCS: 81003 ==

== ENCOUNTER 2023-06-17 14:03 | Outpatient (AMB) | payer OTHER, SELFPAY ==
--- NOTE | 2023-06-17 14:04 | A.OFFVIS_ITS ---
Vital Signs 06/17/23 14:12 Height 5 ft 9 in Weight 288 lb BMI 42.5 BP 137/66 Blood Pressure Location Lt brachial Position Sitting Pulse 69 Intake Visit Reasons: Sebaceous cyst on back of neck Intake Note: Patient referred by PCP Dr. Manning for cyst on post neck. Present for 2wks. Patient c/o: recently seen at urgent care and they tried squeezing. Finished Doxy, Cephalexin course. Adjutant General Required: No Accompanied by: Self / Same As Patient Allergies No Known Allergies Allergy (Verified 06/17/23 14:11) HPI Comments Details: Patient presents for evaluation of an infected sebaceous cyst. He tried treating this himself and then was seen at a walk-in clinic. He underwent an I&D. He has had marked improvement of his symptoms. He is completing his antibiotic course. He has never had such lesions elsewhere. Chart was reviewed patient evaluated [facility] Medical History Renal cyst Renal calculi Gallstones High cholesterol Hypertension Social History Patient Tobacco Use Status: Never used Tobacco Physical Exam Vital Signs: Last Vital Signs Pulse 69 06/17/23 14:12 BP 137/66 06/17/23 14:12 BMI result Body Mass Index 42.5 Neck Other: Resolving left posterior neck sebaceous cyst inflammation. No evidence of any abscess or cellulitis at this time. Assessment & Plan Assessment & Plan (1) Infected sebaceous cyst: Code(s): L72.3 - Sebaceous cyst; L08.9 - Local infection of the skin and subcutaneous tissue, unspecified Category: Surgical Plan Current plan is to treat the patient conservatively. Should this cyst become more symptomatic in the future, patient instructed to call the office for follow-up. All questions answered. Patient will otherwise follow-up p.r.n.. Coding Level of Care Code New Pt Level 4 (59466) Diagnoses Infected sebaceous cyst L72.3; L08.9
[2023-06-17 14:12] VITALS: BP 137/66; PULSE 69; BMI 42.5
== END 2023-06-17 14:24 | disposition home or self-care (01) ==
PROVIDERS: PCP Internal Medicine; Referring Provider Internal Medicine; Visit Provider Surgery
DX: L72.3 Sebaceous cyst (principal); L08.9 Local infection of the skin and subcutaneous tissue, unspecified
CPT/HCPCS: 99204

== ENCOUNTER → 2023-06-17 14:03 | Outpatient (BNVA) | payer OTHER, SELFPAY | PROVIDERS: PCP Internal Medicine; Referring Provider Internal Medicine; Visit Provider Surgery ==

== ENCOUNTER → 2023-06-23 07:51 | Outpatient (REF) | payer OTHER, SELFPAY ==
--- NOTE | 2023-06-23 07:53 | HM_ITS ---
Conclusion: 1. Patient was monitored for total period of 2 days and 20 hours 2. Baseline was normal sinus rhythm with average heart of 65 beats per minute 3. No significant pauses noted 4. Frequent PACs noted with total burden of 16.5% 5. Frequent PVCs noted with total burden of 11.7% 6. No patient marked events MTDD
== END ==
LOC: HO.CARD 07:51
PROVIDERS: PCP Internal Medicine; Visit Provider Internal Medicine
DX: G50.0 Trigeminal neuralgia (principal); I49.1 Atrial premature depolarization; I49.3 Ventricular premature depolarization
CPT/HCPCS: 93242

== ENCOUNTER → 2023-06-23 07:53 | Outpatient (BNV) | payer OTHER, SELFPAY | PROVIDERS: PCP Internal Medicine; Visit Provider Internal Medicine Cardiovascular Disease | DX: I49.1 Atrial premature depolarization (principal) | CPT/HCPCS: 93244 ==

== ENCOUNTER 2023-08-05 08:41 | Day surgery (SDC) | payer OTHER, SELFPAY ==
--- NOTE | 2023-08-04 12:28 | HO.ANESPROP2 ---
Documented by User: Milena Beach NP 08/04/23 12:29 HPI - Anesthesia Eval Consult details Narrative: 62yo M for Upper Endoscopy and Colonoscopy PMFSH Active Problems Active Problems: All Active Problems Infected sebaceous cyst (Acute) Renal cyst (Acute) Renal calculi (Acute) Past Medical History Medical History Sinus bradycardia PAC (premature atrial contraction) PVC (premature ventricular contraction) CATARINA on CPAP Renal cyst Renal calculi Gallstones High cholesterol Hypertension Surgical History Surgical History Hx of colonoscopy Social History Social History Patient Tobacco Use Status: Never used Tobacco Are you DNR?: No Advance Directives: No Advance Directives Information Provided: Yes Recently lost weight without trying: No Nutrition Risks: No Nutritional Risk Meds Allergies Allergy/AdvReac Type Severity Reaction Status Date / Time No Known Allergies Allergy Verified 06/17/23 14:11 Home Medications ?Medication ?Instructions ?Recorded ?Confirmed ?Last Taken ?Type lisinopril 5 mg tablet 5 mg PO DAILY 03/05/21 08/05/23 History simvastatin 20 mg tablet 20 mg PO DAILY 03/05/21 Unknown History loratadine 10 mg tablet 10 mg PO DAILY 06/09/23 Unknown History Exam Narrative Narrative: Holter 06/2023 Conclusion: 1. Patient was monitored for total period of 2 days and 20 hours 2. Baseline was normal sinus rhythm with average heart of 65 beats per minute 3. No significant pauses noted 4. Frequent PACs noted with total burden of 16.5% 5. Frequent PVCs noted with total burden of 11.7% 6. No patient marked events Assessment and Plan Assessment Anesthesia Assessment: Chart Reviewed Documented by User: Adry Fernandes MD 08/05/23 11:15 PMF Past Medical History Medical History Sinus bradycardia PAC (premature atrial contraction) PVC (premature ventricular contraction) CATARINA on CPAP Renal cyst Renal calculi Gallstones High cholesterol Hypertension Surgical History Surgical History Hx of colonoscopy History of Problems with Anesthesia: No Social History Social History Patient Tobacco Use Status: Never used Tobacco Are you DNR?: No Advance Directives: No Advance Directives Information Provided: Yes Recently lost weight without trying: No Nutrition Risks: No Nutritional Risk Meds Allergies Allergy/AdvReac Type Severity Reaction Status Date / Time No Known Allergies Allergy Verified 06/17/23 14:11 Home Medications ?Medication ?Instructions ?Recorded ?Confirmed ?Last Taken ?Type lisinopril 5 mg tablet 5 mg PO DAILY 03/05/21 08/05/23 History simvastatin 20 mg tablet 20 mg PO DAILY 03/05/21 Unknown History loratadine 10 mg tablet 10 mg PO DAILY 06/09/23 Unknown History Exam Airway Mallampati Class: III TM Dist: >3cm Neck ROM: Full Loose/Missing/Broken Teeth: No Heart: RRR Lungs: CTA Assessment and Plan Assessment Anesthesia Assessment: Anesthesia Plan Discussed Final Anesthetic Review History of Problems with Anesthesia: No NPO: Yes ASA Class: III Final Preanesthetic Review: Meds/Allgs Chart Reviewed, Consent Obtained/Reviewed and Anes Risks/Benef Reviewed Patient Risk: Intermediate Procedure Risk: Intermediate Anesthetic Plan Anesthetic Plan: MAC: Disposition: Standard PACU
[2023-08-05 09:12] VITALS: BP 128/101; PULSE 45; RESP 18; TEMP 36.9; O2SAT 96; BMI 39.5
[2023-08-05 09:33] VITALS: BP 119/66
[2023-08-05] MEDS: Lactated Ringers 1,000 ML 100 ML IVCONT (09:40)
--- NOTE | 2023-08-05 10:51 | MHC.SHP ---
Pre-Procedural Eval Section A - 24 Hr Update-Section A only Date of Service: 08/05/23 Section B - Complete if H&P > 30 days Chief Complaint: gerd,screening Details of Present Illness: see H&P no changes Relevant Family History (Specify if Yes): No Relevant Social History: None Present Medications: see Short Stay Collaborative assessment Medical History: No relevant PMH Allergies: Allergies Allergy/AdvReac Type Severity Reaction Status Date / Time No Known Allergies Allergy Verified 06/17/23 14:11 Review of Systems Sugical H&P ROS: Negative: Constitution, Cardiovascular, Respiratory, Neurological, Psychiatric, Hem-Onc, Allergic/Immunologic, Gastrointestinal, Genitourinary, Musculoskeletal, Integumentary, Endocrine and Eyes/Ears/Nose/Throat Exam Surgical H&P Exam: Normal: HEENT, Normal: Heart, Normal: Lungs, Normal: Extremities, Normal: Abdomen, Normal: Skin and Normal: Neurological Plan Diagnosis/Plan: Unchanged I have reviewed the history and physical and performed a pertinent physical examination on my patient. No changes have occurred unless specified. Time Spent With Patient Time: Total time managing care of this patient today ____ minutes.
[2023-08-05 11:38] VITALS: BP 98/42; PULSE 54; RESP 18; TEMP 36.1; O2SAT 97
[2023-08-05 11:53] VITALS: BP 127/75; PULSE 59; RESP 18; TEMP 36.2; O2SAT 97
--- NOTE | 2023-08-05 11:54 | OP_ITS ---
DATE OF SERVICE: 08/05/2023 SURGEON: Kimo Adan MD INDICATIONS: Gastroesophageal reflux disease and colon cancer screening. PREOPERATIVE DIAGNOSIS: POSTOPERATIVE DIAGNOSIS: PROCEDURE PERFORMED: Upper endoscopy with biopsy, colonoscopy to the terminal ileum with biopsy. ESTIMATED BLOOD LOSS: COMPLICATIONS: ANESTHESIA: Monitored anesthesia care. ASSISTANTS: SPECIMENS: DESCRIPTION OF PROCEDURE: A history and physical was performed. The risks and benefits of the procedure were explained to the patient and informed consent was obtained. The patient was placed in the left lateral decubitus position. The Olympus video gastroscope was introduced into the esophagus, stomach, and duodenum. Examination was performed and the scope was removed. He was repositioned for colonoscopy. A digital rectal exam was performed and was found to be normal. The Olympus pediatric video colonoscope was introduced into the rectum and advanced to the cecum. The cecum was identified by transillumination, palpation, and identification of ileocecal valve. Examination was performed and the scope was removed. He tolerated both procedures well and was returned to recovery area in stable condition. FINDINGS: Upper endoscopy, esophagus: The esophagus was normal. There was no esophagitis. Biopsies were obtained from the EG junction. Stomach: The stomach showed multiple benign-appearing polyps in the body and fundus. The largest measured approximately 8 to 10 mm. These appeared consistent with fundic gland polyps. Biopsies were obtained from the polyps and from the antrum. Duodenum: There was mild duodenitis involving the bulb and the 2nd portion. Colonoscopy: The terminal ileum was examined and appeared normal. The visualized colonic mucosa was normal. There was some stool coating mucosa, mainly in the right colon and transverse colon. This was washed and suctioned. A single polyp was identified and removed with the biopsy forceps measuring less than 5 mm. This was located at the hepatic flexure. No other polyps were identified. Retroflexed examination showed some internal hemorrhoids. IMPRESSION: 1. Gastric polyps. 2. Gastroesophageal reflux disease. 3. Duodenitis. 4. Colon polyp. RECOMMENDATION: Follow up the biopsy results. MD LYNN Lopez/INNA / [phone]
== END 2023-08-05 12:22 | disposition home or self-care (01) ==
PROVIDERS: PCP Internal Medicine; Visit Provider Internal Medicine Gastroenterology
PROC: (CPT 45380; principal; 2023-08-05 10:50)
DX: Z12.11 Encounter for screening for malignant neoplasm of colon (principal); Z86.010 Personal history of colon polyps; D12.3 Benign neoplasm of transverse colon; K31.7 Polyp of stomach and duodenum; K21.9 Gastro-esophageal reflux disease without esophagitis; K29.80 Duodenitis without bleeding; K80.20 Calculus of gallbladder without cholecystitis without obstruction; Z80.0 Family history of malignant neoplasm of digestive organs; Z87.11 Personal history of peptic ulcer disease; I10 Essential (primary) hypertension; G47.33 Obstructive sleep apnea (adult) (pediatric); N20.0 Calculus of kidney; N28.1 Cyst of kidney, acquired; Z99.89 Dependence on other enabling machines and devices; Z79.899 Other long term (current) drug therapy; Z79.1 Long term (current) use of non-steroidal anti-inflammatories (NSAID); Z79.51 Long term (current) use of inhaled steroids
CPT/HCPCS: 45380; 43239; 88305; 88313; 88342; J2704

== ENCOUNTER 2023-10-08 14:44 | Outpatient (AMB) | payer BC, SELFPAY ==
--- NOTE | 2023-10-08 14:52 | A.OFFVIS_ITS ---
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 His Holter shows frequent supraventricular ventricular ectopy and hence referred. Patient herself denies any history of coronary artery disease or myocardial infarction or cardiomyopathy or in fact any other cardiac issues. He is morbidly obese. He states he does have sleep apnea but he does not use CPAP mask. Otherwise, listed to be on med for blood pressure and cholesterol. Within limits of his activity, does not have any symptoms like chest pain or shortness of breath. No overt cardiac symptoms otherwise. REPLACED BY [facility] Medical History (Updated 10/08/23 @ 15:22 by Etienne Barakat MD) Sinus bradycardia PAC (premature atrial contraction) PVC (premature ventricular contraction) CATARINA on CPAP Renal cyst Renal calculi Gallstones High cholesterol Hypertension Surgical History Hx of colonoscopy Family History Father CHF (congestive heart failure) Mother Pancreatic cancer Sister COPD (chronic obstructive pulmonary disease) HTN (hypertension) Social History (Updated 10/08/23 @ 15:01 by Sona Salter CMA) Alcohol intake: never Patient Tobacco Use Status: Never used Tobacco Review of Systems Const Denies chills, Denies daytime sleepiness, Denies fatigue, Denies fever(s), Denies poor appetite, Denies snoring, Denies stops breathing during sleep, Denies weakness, Denies weight gain and Denies weight loss Eyes Denies loss of vision ENT Denies dizziness and Denies hearing loss Card Denies chest pain, Denies irregular heart rhythm, Denies claudication, Denies leg edema, Denies lightheadedness, Denies palpitations, Reports dyspnea on exertion and Denies orthopnea Resp Denies cough, Denies excessive phlegm production, Reports dyspnea on exertion, Denies snoring and Denies wheezing GI Denies abdominal pain, Denies hematochezia, Denies change in bowel habits, Denies nausea and Denies vomiting Denies dysuria and Denies urinary frequency Musc Denies arthralgias, Denies muscle weakness, Denies numbness and Denies other Skin/Breast Denies nail changes and Denies rash Neuro Denies Abnormal speech present, Denies dizziness, Denies loss of vision, Denies memory loss, Denies numbness and Denies weakness Psych Denies depression and Denies memory loss Endo Denies fatigue and Denies palpitations Bernardo/Lymph Denies easy bruising Aller/Immun Denies wheezing Physical Exam Vital Signs: Last Vital Signs Pulse 65 10/08/23 14:53 BP 130/80 10/08/23 14:53 BMI result Body Mass Index 40.0 Const General: comfortable and no acute distress Orientation/consciousness: patient oriented x3 HEENT Other: Unremarkable Head: Yes normal to inspection Neck Neck: Yes normal visual inspection Chest Chest palpation & inspection: normal inspection of the chest Resp Auscultation: clear to auscultation bilaterally Cardio Palpation: normal PMI Heart sounds: S1 normal heart sound present, S2 normal heart sound present, no gallops, no murmurs and no rubs GI Palpation (GI): Soft to palpation Back/Spine/Pelvis Other: unremarkable Skin General skin exam: no rashes or lesions noted Neuro General: patient oriented x3 Speech: No Abnormal speech present Extrem General: Yes normal to inspection Psych Mental Status: mental status grossly normal Office Procedures EKG Details: EKG with underlying sinus rhythm at 65/Min; supraventricular and ventricular ectopy; cannot exclude old inferior infarct; [place] [id number], Complete Assessment & Plan Assessment & Plan (1) PVC (premature ventricular contraction): Code(s): I49.3 - Ventricular premature depolarization Category: Medical (2) PAC (premature atrial contraction): Code(s): I49.1 - Atrial premature depolarization Category: Medical (3) Morbid obesity: Code(s): E66.01 - Morbid (severe) obesity due to excess calories Category: Medical (4) Obstructive sleep apnea: Code(s): G47.33 - Obstructive sleep apnea (adult) (pediatric) Category: Medical Plan Cardiac studies reviewed. Holter shows underlying sinus rhythm with an average rate of 65/Min. Frequent PACs the burden of 16%. Frequent PVCs with a burden of 12%. Rare couplets but no significant runs. In the echocardiogram, LVEF 60-65%; no significant valvular findings and otherwise unremarkable. Overall, morbid obesity, untreated sleep apnea, frequent ectopy. Pathophysiology discussed. Importance of weight loss discussed. As it has been almost 10 years since the last sleep study, we can repeat this. Will get stress perfusion imaging to assess for any ischemic basis, but he does not have any anginal symptoms. Follow-up after the above. Orders: Orders CA stress test Today I49.3 - Ventricular premature depolarization, R07.2 - Precordial pain RT home sleep study Today G47.33 - Obstructive sleep apnea (adult) (pediatric), I49.3 - Ventricular premature depolarization NM cardiolite stress test Today I49.3 - Ventricular premature depolarization, R07.2 - Precordial pain Coding Level of Care Code New Pt Level 4 (39380) Diagnoses PVC (premature ventricular contraction) I49.3 PAC (premature atrial contraction) I49.1 Morbid obesity E66.01 Obstructive sleep apnea G47.33 CPT Codes EKG - CPT: [id number], Complete ([id number])
[2023-10-08 14:53] VITALS: BP 130/80; PULSE 65; BMI 40.0
== END 2023-10-08 15:36 | disposition home or self-care (01) ==
PROVIDERS: PCP Internal Medicine; Visit Provider Internal Medicine
DX: I49.3 Ventricular premature depolarization (principal); I49.1 Atrial premature depolarization; E66.01 Morbid (severe) obesity due to excess calories; G47.33 Obstructive sleep apnea (adult) (pediatric)
CPT/HCPCS: 93010; 99204

== ENCOUNTER → 2023-10-08 14:44 | Outpatient (BNVA) | payer BC, SELFPAY | PROVIDERS: PCP Internal Medicine; Visit Provider Internal Medicine | DX: I49.3 Ventricular premature depolarization (principal); I49.1 Atrial premature depolarization; E66.01 Morbid (severe) obesity due to excess calories; Z68.41 Body mass index [BMI] 40.0-44.9, adult; G47.33 Obstructive sleep apnea (adult) (pediatric) | CPT/HCPCS: 93005 ==

== ENCOUNTER → 2023-11-25 14:00 | Outpatient (REF) | payer BC, SELFPAY | LOC: HO.SL 14:00 | PROVIDERS: PCP Internal Medicine; Visit Provider Internal Medicine | DX: G47.33 Obstructive sleep apnea (adult) (pediatric) (principal); I49.3 Ventricular premature depolarization | CPT/HCPCS: 95806 ==

== ENCOUNTER → 2023-11-25 14:26 | Outpatient (BNV) | payer BC, SELFPAY | PROVIDERS: PCP Internal Medicine; Visit Provider Internal Medicine | DX: G47.33 Obstructive sleep apnea (adult) (pediatric) (principal) | CPT/HCPCS: 95806 ==

== ENCOUNTER 2024-01-06 13:10 | Outpatient (AMB) | payer BC, SELFPAY ==
[2024-01-06 13:16] VITALS: BP 120/72; PULSE 43; O2SAT 97; BMI 40.3
--- NOTE | 2024-01-06 13:16 | MHC.OFFVIS ---
Vital Signs 01/06/24 13:16 Height 5 ft 10 in Weight 281 lb 1.43 oz BMI 40.3 BP 120/72 Blood Pressure Location Lt brachial Position Sitting Pulse 43 L Pulse Source Pulse Oximeter Pulse Oximetry (%) 97 Oxygen Delivery Method Room Air Intake Visit Reasons: sleep apnea Intake Note: pt is here as a new patient for CATARINA, some tiredness through out the day, he does have a lot of post nasal drip Community Service Specialist Required: No Allergies No Known Allergies Allergy (Verified 01/06/24 13:50) Medication List - Last Reconciled 01/06/24 by Rio Chaparro MD lisinopril 10 mg PO DAILY loratadine 10 mg PO DAILY pyridoxine (vitamin B6) 50 mg PO DAILY 90 days simvastatin 20 mg PO DAILY Do you need a note to return to daycare/school/sports/work: No HPI HPI sleep apnea: Details: This 63 years old gentleman is being seen for the 1st time due to an abnormal sleep study. He is a case of morbid obesity, with current BMI 40.3 He has history of obstructive sleep apnea diagnosed in 2010 by a sleep study in the sleep lab followed by CPAP titration. He had severe obstructive sleep apnea along with nocturnal hypoxemia. CPAP titration was done and he was started on fullface mask and pressure of 15 cm, along with O2 2 L/minute. He used the CPAP for a few years then stopped using it. But he has kept on using O2 2 L/minute at night. He has remained overly obese. He also has mild to moderate nasal congestion especially at nighttime. He has been sleeping in the recliner. As he can not sleep flat or in lateral position. He does feel tired and sleepy especially in the afternoon. Lately he has complained of frequent palpitations, and a regular heartbeat. He has had EKG, rhythm strips and Holter monitor, showing multiple PACs and PVCs. That is the a home-based sleep study was ordered by Dr. Barakat which was done on 11/25/2023. Patient was sleeping upright in the recliner. His the sleep study shows a mild degree of obstructive sleep apnea with total sleep time AHI 7. Snoring was minimal. There was mild nocturnal hypoxemia. 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 After he comes home, he usually sits in the recliner take short naps. He is nonsmoker, does drink moderate amount of alcohol but only once in a while. Except for walking around for his work as police superintendent, he is not doing any other regular exercise or strenuous walking. [facility] Medical History (Updated 01/06/24 @ 14:09 by Rio Chaparro MD) Nocturnal hypoxemia Sinus bradycardia PAC (premature atrial contraction) PVC (premature ventricular contraction) CATARINA on CPAP Renal cyst Renal calculi Gallstones High cholesterol Hypertension Surgical History Hx of colonoscopy Family History Father CHF (congestive heart failure) Mother Pancreatic cancer Sister COPD (chronic obstructive pulmonary disease) HTN (hypertension) Social History Alcohol intake: never Patient Tobacco Use Status: Never used Tobacco Review of Systems Const All systems reviewed & are unremarkable except as noted in HPI and below Eyes Reports no additional complaints ENT Reports nasal congestion (off and on ) Card Denies chest pain, Reports irregular heart rhythm, Denies leg edema and Denies lightheadedness Resp Reports no additional complaints, Denies cough and Denies wheezing GI Reports no additional complaints Reports no additional complaints Skin/Breast Reports system reviewed and no additional complaints, except as documented Neuro Reports no additional complaints Psych Reports no additional complaints Aller/Immun Denies wheezing Physical Exam Vital Signs: Last Vital Signs Pulse 43 L 01/06/24 13:16 BP 120/72 01/06/24 13:16 Pulse Ox 97 01/06/24 13:16 Oxygen Delivery Method Room Air 01/06/24 13:16 BMI result Body Mass Index 40.3 He is grossly obese with a round face, short and obese neck. Const General: healthy appearing (Except for being grossly obese), comfortable, no acute distress, alert and awake Orientation/consciousness: patient oriented x3 HEENT Head: Yes normal to inspection General nose exam: No nasal polyps present and No nasal discharge present Face and sinus: Yes sinuses nontender Mouth: oropharynx abnormals (Oropharynx is narrow and crowded, Mallampati scale 4) Throat: Yes posterior oropharynx normal Eyes General: appearance normal, both eyes and all related structures Neck Neck: Yes normal visual inspection, Yes no lymphadenopathy, Yes trachea midline, Yes no JVD and Yes other (Neck circumference 20-1/2 inch) Thyroid: Thyroid normal Chest Chest palpation & inspection: normal inspection of the chest, normal palpation of entire chest wall and no tenderness Resp Effort & Inspection: normal respiratory effort Auscultation: clear to auscultation bilaterally, no rales and no wheezes Cardio Palpation: normal PMI Rate: regular rate Rhythm: regular rhythm Heart sounds: no gallops and no murmurs GI Palpation (GI): Soft to palpation, nontender, No hepatosplenomegaly present and no masses Auscultation: normal bowel sounds Back/Spine/Pelvis Thoracic/Lumbar Spine: thoracic and lumbar spine normal to inspection Skin General skin exam: no rashes or lesions noted Neuro General: patient oriented x3 and no focal motor deficits Cranial nerves: Yes CN's II-XII intact bilaterally Extrem General: Yes normal to inspection, Yes no clubbing, cyanosis or edema and Yes no calf tenderness Psych Appearance: grossly normal and well kempt Speech and movement: Normal speech and movement present Results Reviewed Results Reviewed: Home-based sleep study on 11/25/2023. Total sleep time AHI 7, all the sleep in his upright/supine position O2 sat average 93% lowest 77 and less than 88% for 7 minutes c/w mild obstructive sleep apnea with the borderline hypoxemia. Assessment & Plan Assessment & Plan (1) Morbid obesity: Comment: Current BMI 40.3. He has been morbidly obese for the past many years. Has not been able to lose much weight. Code(s): E66.01 - Morbid (severe) obesity due to excess calories Category: Medical Plan: I discussed with him that he needs to cut down the calories intake, He may be better of joining a weight management program, In addition to his work as a police superintendent he needs to walk brisk for about 2 miles every day. (2) Obstructive sleep apnea: Comment: Patient has longstanding history of obstructive sleep apnea. Original sleep study in 2010 was consistent with very severe obstructive sleep apnea and nocturnal hypoxemia. Current home-based sleep study shows mild obstructive sleep apnea with mild nocturnal hypoxemia. Code(s): G47.33 - Obstructive sleep apnea (adult) (pediatric) Category: Medical Plan: Treatment options discussed. 1- if he could lose significant weight ( 10% of his current body weight which is 27 lb ) his mild obstructive sleep apnea may be reduced to minimal. 2 position therapy he should start sleeping in lateral position. He indicates that it is difficult he feels more comfortable sleeping in a recliner. 3- as he has associated cardiac issue especially atrial and ventricular arrhythmias, I think even though he has mild obstructive sleep apnea it is worth treating with CPAP therapy. After good discussion he has agreed to start using the CPAP. He has a old CPAP machine at home which is more than 12 years old, I am going to write order for a replacement with new CPAP machine, fullface mask, and Auto-Pap setting of 6-20 cm. Along with heated humidification. Once he starts using CPAP regularly we will do overnight oximetry recording to see if he needs O2 supplementation or not. (3) PAC (premature atrial contraction): Comment: His cardiac workup including Holter monitor has shown frequent PACs. The presence of the obstructive sleep apnea may be contributing to the arrhythmias. Code(s): I49.1 - Atrial premature depolarization Category: Medical Plan: CPAP therapy, and then he can have cardiac monitoring to see if arrhythmias have resolved. (4) PVC (premature ventricular contraction): Comment: He has frequent PVCs . In addition to PACs Code(s): I49.3 - Ventricular premature depolarization Category: Medical Plan: As under PACs (5) Nocturnal hypoxemia: Comment: Current nocturnal hypoxemia is minimal on O2 sat below 88% for 7 minute Code(s): G47.34 - Idiopathic sleep related nonobstructive alveolar hypoventilation Category: Medical Plan: I think if he starts using the CPAP regularly is hypoxemia with will resolve and he may not need O2 supplementation. However if he fails to comply with our can not use the CPAP then he will need to continue on O2 supplementation. Coding Level of Care Code New Pt Level 4 (87422) Diagnoses Morbid obesity E66.01 Obstructive sleep apnea G47.33 PAC (premature atrial contraction) I49.1 PVC (premature ventricular contraction) I49.3 Nocturnal hypoxemia G47.34
== END 2024-01-06 13:45 | disposition home or self-care (01) ==
PROVIDERS: PCP Internal Medicine; Visit Provider Internal Medicine
DX: G47.33 Obstructive sleep apnea (adult) (pediatric) (principal); G47.34 Idiopathic sleep related nonobstructive alveolar hypoventilation; E66.01 Morbid (severe) obesity due to excess calories; Z68.41 Body mass index [BMI] 40.0-44.9, adult; I49.1 Atrial premature depolarization; I49.3 Ventricular premature depolarization
CPT/HCPCS: 99214

== ENCOUNTER 2024-03-03 15:22 | Outpatient (AMB) | payer BC, SELFPAY ==
[2024-03-03 15:30] VITALS: BP 130/68; PULSE 48; O2SAT 93; BMI 40.2
--- NOTE | 2024-03-03 15:30 | MHC.OFFVIS ---
Vital Signs 03/03/24 15:30 Height 5 ft 10 in Weight 279 lb 15.793 oz BMI 40.2 BP 130/68 Blood Pressure Location Lt brachial Position Sitting Pulse 48 L Pulse Source Pulse Oximeter Pulse Oximetry (%) 93 Oxygen Delivery Method Room Air Intake Visit Reasons: Sleep apnea Intake Note: pt is here for follow up of CATARINA he has a new machine, and oxygen has been taken out. Well Puller Head Required: No Allergies No Known Allergies Allergy (Verified 03/03/24 15:43) Medication List - Last Reconciled 03/03/24 by Rio Chaparro MD lisinopril 10 mg PO DAILY loratadine 10 mg PO DAILY pyridoxine (vitamin B6) 50 mg PO DAILY 90 days simvastatin 20 mg PO DAILY Do you need a note to return to daycare/school/sports/work: No HPI HPI Sleep apnea: Details: LULA HAS A NEW CPAP DEVICE, WITH FULLFACE MASK, HIS WORKING GOOD. HE IS USING THE CPAP EVERY NIGHT. HOWEVER HIS HOURS OF USE ONLY ABOUT 4-5 HOURS. HE GOES TO SLEEP QUITE LATE AND THEN WAKES UP AT 04:00 . HE DENIES ANY DAYTIME SLEEPINESS. FEELS SOMEWHAT MORE ENERGETIC SINCE HE IS USING CPAP. HIS OVERNIGHT OXIMETRY RECORDING SHOWED THAT HE DOES NOT HAVE NOCTURNAL HYPOXEMIA WHEN HE IS USING CPAP. SO HIS O2 CONCENTRATOR HAS BEEN TAKEN AWAY. HE DOES NOT HAVE ANY ASSOCIATED CHRONIC PULMONARY DISEASE. WEIGHT IS ALMOST THE SAME, HE IS TRYING TO WALK LITTLE BIT MORE, BUT HE NEEDS TO CONCENTRATE ON REDUCING HIS CALORIES INTAKE. [facility] Medical History (Updated 03/03/24 @ 15:50 by Rio Chaparro MD) Nocturnal hypoxemia Sinus bradycardia PAC (premature atrial contraction) PVC (premature ventricular contraction) CATARINA on CPAP Renal cyst Renal calculi Gallstones High cholesterol Hypertension Surgical History Hx of colonoscopy Family History Father CHF (congestive heart failure) Mother Pancreatic cancer Sister COPD (chronic obstructive pulmonary disease) HTN (hypertension) Social History Alcohol intake: never Patient Tobacco Use Status: Never used Tobacco Review of Systems Const All systems reviewed & are unremarkable except as noted in HPI and below Eyes Reports no additional complaints ENT Reports nasal congestion (off and on ) Card Denies chest pain, Reports irregular heart rhythm, Denies leg edema and Denies lightheadedness Resp Reports no additional complaints, Denies cough and Denies wheezing GI Reports no additional complaints Reports no additional complaints Skin/Breast Reports system reviewed and no additional complaints, except as documented Neuro Reports no additional complaints Psych Reports no additional complaints Aller/Immun Denies wheezing Physical Exam Vital Signs: Last Vital Signs Pulse 48 L 03/03/24 15:30 BP 130/68 03/03/24 15:30 Pulse Ox 93 03/03/24 15:30 Oxygen Delivery Method Room Air 03/03/24 15:30 BMI result Body Mass Index 40.2 He is grossly obese with a round face, short and obese neck. Const General: healthy appearing (Except for being grossly obese), comfortable, no acute distress, alert and awake Orientation/consciousness: patient oriented x3 HEENT Head: Yes normal to inspection General nose exam: No nasal polyps present and No nasal discharge present Face and sinus: Yes sinuses nontender Mouth: oropharynx abnormals (Oropharynx is narrow and crowded, Mallampati scale 4) Throat: Yes posterior oropharynx normal Eyes General: appearance normal, both eyes and all related structures Neck Neck: Yes normal visual inspection, Yes no lymphadenopathy, Yes trachea midline, Yes no JVD and Yes other (Neck circumference 20-1/2 inch) Thyroid: Thyroid normal Chest Chest palpation & inspection: normal inspection of the chest, normal palpation of entire chest wall and no tenderness Resp Effort & Inspection: normal respiratory effort Auscultation: clear to auscultation bilaterally, no rales and no wheezes Cardio Palpation: normal PMI Rate: regular rate Rhythm: regular rhythm Heart sounds: no gallops and no murmurs GI Palpation (GI): Soft to palpation, nontender, No hepatosplenomegaly present and no masses Auscultation: normal bowel sounds Back/Spine/Pelvis Thoracic/Lumbar Spine: thoracic and lumbar spine normal to inspection Skin General skin exam: no rashes or lesions noted Neuro General: patient oriented x3 and no focal motor deficits Cranial nerves: Yes CN's II-XII intact bilaterally Extrem General: Yes normal to inspection, Yes no clubbing, cyanosis or edema and Yes no calf tenderness Psych Appearance: grossly normal and well kempt Speech and movement: Normal speech and movement present Results Reviewed Results Reviewed: COMPLIANCE REPORT FOR THE LAST 30 NIGHTS IS REVIEWED. HE HAS USED 27/30 NIGHTS, 90%. AVERAGE USE IT PER NIGHT 4 HOURS 32 MINUTES. PRESSURE USED MOSTLY 9-10 CM. HE DOES HAVE SOME AIR LEAK, MAXIMUM 74 L/MINUTE. RESIDUAL AHI 2.4 Assessment & Plan Assessment & Plan (1) Morbid obesity: Comment: Current BMI 40.2. He has been morbidly obese for the past many years. Has not been able to lose much weight. Code(s): E66.01 - Morbid (severe) obesity due to excess calories Category: Medical Plan: AGAIN STRESSED THAT HE HAS TO CUT DOWN THE PORTIONS OF HIS MEALS. HE NEEDS TO WALK MORE. 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 Original sleep study in 2010 was consistent with very severe obstructive sleep apnea and nocturnal hypoxemia. Current home-based sleep study showed mild obstructive sleep apnea with mild nocturnal hypoxemia. He has been started on CPAP therapy again and he is compliant but hours of usage are somewhat less . Code(s): G47.33 - Obstructive sleep apnea (adult) (pediatric) Category: Medical Plan: Commended for good compliance. Advised to increase the usage per night to about 6 hours at least. When he comes home in the afternoon and feels sleepy he can take a nap and use the CPAP. (3) Nocturnal hypoxemia: Comment: Current nocturnal hypoxemia is minimal on O2 sat below 88% for 7 minute. Overnight oximetry recording with the CPAP showed that his nocturnal hypoxemia has resolved. Code(s): G47.34 - Idiopathic sleep related nonobstructive alveolar hypoventilation Category: Medical Plan: Oxygen supplementation is discontinued and DME supplier has picked up the oxygen concentrator from his house Coding Level of Care Code Est Pt Level 3 (05232) Diagnoses Morbid obesity E66.01 Obstructive sleep apnea G47.33 Nocturnal hypoxemia G47.34
== END 2024-03-03 15:44 | disposition home or self-care (01) ==
PROVIDERS: PCP Internal Medicine; Visit Provider Internal Medicine
DX: E66.01 Morbid (severe) obesity due to excess calories (principal); G47.33 Obstructive sleep apnea (adult) (pediatric); G47.34 Idiopathic sleep related nonobstructive alveolar hypoventilation
CPT/HCPCS: 99213

== ENCOUNTER → 2024-03-03 15:22 | Outpatient (BNVA) | payer BC, SELFPAY | PROVIDERS: PCP Internal Medicine; Visit Provider Internal Medicine ==

== ENCOUNTER → 2024-04-02 07:41 | Outpatient (REF) | payer BC, SELFPAY ==
--- NOTE | 2024-04-02 07:44 | CA_ITS ---
Acquisition Time: 2024-04-02 08:04:30 Total Exercise Time: 00:06:46 Test Indications: ABN HOLTER, PVCS, PACS Medications: SEE H&P Protocol: CINDY Max HR: 136 BPM 86% of Pred: 158 BPM Max BP: 230/88 mmHG Max Work Load: 7.4 METS Exercise Stress Test with exercise 6 mins 46 secs of Cindy Protocol, held at Stage 2 with speed upto 3 mph, achieving 86% MPHR, with reports of moderate SOB, no chest discomfort, with frequent isolated PACs and PVCs, with hypertensive response max BP 230/88, baseline BP 144/78. Without EKG changes meeting criteria for ischemia. In recovery, BP returned to baseline and SOB resolved. Nuclear images pending. Test reviewed with Dr. Barakat. Referred By: Etienne Barakat Electronically Signed By: Bob Caban
--- OUTSIDE RECORDS SUMMARY | 2024-04-02 07:44 | XMS_ITS ---
Author Organization [facility] Address [address] [place] [phone] Care Team Providers Care Benefits Coordinator Name Role Phone Chino Manning MD Primary Care Provider Unavaila samira Adan Jr, Kimo Unavailable MEDICATIONS Medication SIG (Take, Route, Fr equency, Duration) Notes Start Date End Date Status Omeprazole 40 MG 1 Orally Once a day for 30 day(s) 08/08/2023 Active Encounters Encounter Location Date Provider Diagnosis [facility] [address] [place] [phone] 08/08/2023 Kimo Adan Jr PLAN OF TREATMENT Medication Medication Name Sig Start Date Stop Date Notes Omeprazole 40 MG 1 Orally Once a day for 30 day(s) 024
--- OUTSIDE RECORDS SUMMARY | 2024-04-02 07:44 | XMS_ITS ---
Author Organization [facility] Address [address] [place] [phone] Care Team Providers Care International Guest Coordinator Name Role Phone Chino Manning MD Primary Care Provider Kimo Crocker Jr Unavailable [phone] REASON FOR VISIT gerd, screening PROBLEMS Problem Type ICD Code Onset Dates Problem Status W/U Status Risk SNOMED Code Notes Problem Gastroesophageal reflux disease (K21.9) Active confirmed Gastroesophagea l reflux disease (550101489) Encounters Encounter Location Date Provider Diagnosis [facility] [place] [address] [place] [phone] 08/05/2023 Kimo Adan Jr Encounter for screening colonoscopy Z12.11 ; Colon polyps K63.5 and Gastroesophageal reflux disease K21.9 ASSESSMENTS Encounter Date Diagnosis Assessment Notes Treatment Notes Treatment Clinical Notes 08/05/2023 Encounter for screen ing colonoscopy (ICD-10 - Z12.11) 08/05/2023 Colon polyps (ICD-10 - K63.5) 08/05/2023 Gastroesophageal ref lux disease (ICD-10 - K21.9) PLAN OF TREATMENT No Information
--- OUTSIDE RECORDS SUMMARY | 2024-04-02 07:44 | XMS_ITS | Patient Health Record ---
Author Organization [facility] Address [address] [place] [address] Care Team Providers Care Us Administrative Law Judge Name Role Phone Chino Manning MD Primary Care Provider Kimo Crocker Jr Unavailable ALLERGIES No Known Allergies RESULTS Component Value Reference Range Notes Pathology Reviewed date:08/13/2023 08:47:15 AM Interpretation: Performing Lab:[facility], [address] [place] [phone] Notes/Report: REASON FOR REFERRAL No Information MEDICATIONS Medication SIG (Take, Route, Frequency, Duration) Notes Start Date End Date Status Lisinopril 10 MG 1 tablet Orally Once a day Active Loratadine 10 MG 1 tablet Orally Once a day for 30 day(s) Active Simvastatin 20 MG 1 tablet in the even ing Orally Once a day Active Vitamin B6 50 MG TAKE 1 TABLET BY ROXANA TH DAILY Oral for 90 Active Advil 200 MG 1 capsule with food or milk as needed Orally as needed/as directed Active Omeprazole 40 MG 1 Orally Once a day for 30 day(s) 08/08/2023 Active Fluticasone Propionate 50 MCG/ACT 1 spray in each nostril Nasally as needed Active MiraLax (colon prep) 17 GM/SCOOP mixed with Gatorade or Crystal Light Orally begin at 5:00 p.m. the day before the procedure for 1 day 06/26/2023 Active IMMUNIZATIONS Vaccine Route Administration Date Status Comme nts Influenza Unknown 03/26/2018 Refused SOCIAL HISTORY Sex Assigned At : Social History Observation Description Sex Assigned At Unknown PROBLEMS Problem Type ICD Code Onset Dates Problem Status W/U Status Risk SNOMED Code Notes Problem Colon cancer screening (Z12.11) Active confirmed 104809475 Problem Encounter for other preprocedural examination (Z01.818) Active confirmed 32053714 Problem Gastroesophageal reflux disease (K21.9) Active confirmed Gastroesophagea l reflux disease (834037637) Problem Gastroesophageal reflux disease, unspecified whether esophagitis present (K21.9) Active confirmed 726782659 VITAL SIGNS Blood pressure diastolic 00 mm Hg 06/26/2023 Height 70.25 in 06/26/2023 Blood pressure systolic 00 mm Hg 06/26/2023 Weight 286 lbs 06/26/2023 BMI 40.74 kg/m2 06/26/2023 Encounters Encounter Location Date Provider Diagnosis [facility] [place] [address] [place] [phone] 08/05/2023 Kimo Adan Jr Encounter for screening colonoscopy Z12.11 ; Colon polyps K63.5 and Gastroesophageal reflux disease K21.9 [facility] [address] [place] [phone] 06/26/2023 Kiom Adan Jr Gastroesophageal reflux disease, unspecified whether esophagitis present K21.9 ; Colon cancer screening Z12.11 and Encounter for long-term (current) use of NSAIDs Z79.1 [facility] [address] [place] [phone] 06/26/2023 Kimo Adan Jr [facility] [address] [place] [phone] 08/08/2023 Kimo Adan Jr ASSESSMENTS Encounter Date Diagnosis Assessment Notes Treatment Notes Treatment Clinical Notes 08/05/2023 Encounter for screen ing colonoscopy (ICD-10 - Z12.11) 08/05/2023 Colon polyps (ICD-10 - K63.5) 06/26/2023 Colon cancer screeni ng (ICD-10 - Z12.11) 06/26/2023 Gastroesophageal ref lux disease, unspecified whether esophagitis present (ICD-10 - K21.9) Colonoscopy,End oscopy material was printed 08/05/2023 Gastroesophageal ref lux disease (ICD-10 - K21.9) 06/26/2023 Encounter for long-t erm (current) use of NSAIDs (ICD-10 - Z79.1) PLAN OF TREATMENT Future Test Test Name Order Date COLONOSCOPY 03/26/2018 UPPER GI ENDOSCOPY 06/26/2023 COLONOSCOPY 06/26/2023 Insurance Providers Payer Name Payer Address Payer Phone Subscriber Number Group Number Insured Name Patient Relationship to Insured Coverage Start Date Coverage End Date [facility] [address] [place] [address] [phone] [id number] LULA KAY Self - patient is the insured MEDICAL (GENERAL) HISTORY Medical History History ICD Code hypertension post nasal drip sleep apnea, uses CPAP minor mitral valve prolapse peptic ulcer disease gallstones 07/2017 cyst on renal and kidney stones Surgical History Surgery Date(Month/Year)
--- OUTSIDE RECORDS SUMMARY | 2024-04-02 07:44 | XMS_ITS ---
Author Organization [facility] Address [address] [place] [phone] Care Team Providers Care Service Unit Operator Oil Well Name Role Phone Chino Manning MD Primary Care Provider Unavaila Kimo Carrera Jr Unavailable [phone] Encounters Encounter Location Date Provider Diagnosis [facility] [address] [place] [phone] 06/26/2023 Kimo Adan Jr PLAN OF TREATMENT No Information
== END ==
LOC: HO.CARD 07:41
PROVIDERS: PCP Internal Medicine; Visit Provider Internal Medicine
DX: R07.2 Precordial pain (principal); I49.3 Ventricular premature depolarization
CPT/HCPCS: 78452; 93017; A9500

== ENCOUNTER → 2024-04-02 07:44 | Outpatient (BNV) | payer BC, SELFPAY | PROVIDERS: PCP Internal Medicine | DX: I49.1 Atrial premature depolarization (principal); I49.3 Ventricular premature depolarization | CPT/HCPCS: 78452; 93016; 93018 ==

== ENCOUNTER 2024-04-08 13:50 | Outpatient (AMB) | payer BC, SELFPAY ==
[2024-04-08 13:55] VITALS: BP 128/62; PULSE 42; BMI 41.2
--- NOTE | 2024-04-08 13:55 | MHC.OFFVIS ---
Vital Signs 04/08/24 13:55 Height 5 ft 10 in Weight 287 lb 0.67 oz BMI 41.2 BP 128/62 Blood Pressure Location Lt brachial Position Sitting Pulse 42 L Pulse Source Pulse Oximeter Intake Visit Reasons: f/up mibi and home sleep Single Fold Machine Operator Required: No Accompanied by: Self / Same As Patient Allergies No Known Allergies Allergy (Verified 03/03/24 15:43) Medication List - Last Reconciled 04/08/24 by Etienne Barakat MD lisinopril 10 mg PO DAILY loratadine 10 mg PO DAILY pyridoxine (vitamin B6) 50 mg PO DAILY 90 days simvastatin 20 mg PO DAILY HPI Comments Details: Oc returns for follow-up. In the past, he was seen regarding abnormal Holter. That showed frequent supraventricular/ventricular ectopy. Patient herself denies any history of coronary artery disease or myocardial infarction or cardiomyopathy or in fact any other cardiac issues. He is morbidly obese. History of obstructive sleep apnea and recently started using the CPAP. Otherwise, listed to be on med for blood pressure and cholesterol. Within limits of his activity, does not have any symptoms like chest pain or shortness of breath. No overt cardiac symptoms otherwise. Since last seen, no new concerns. [facility] Medical History (Updated 03/03/24 @ 15:50 by Rio Chaparro MD) Nocturnal hypoxemia Sinus bradycardia PAC (premature atrial contraction) PVC (premature ventricular contraction) CATARINA on CPAP Renal cyst Renal calculi Gallstones High cholesterol Hypertension Surgical History Hx of colonoscopy Family History Father CHF (congestive heart failure) Mother Pancreatic cancer Sister COPD (chronic obstructive pulmonary disease) HTN (hypertension) Social History Alcohol intake: never Patient Tobacco Use Status: Never used Tobacco Review of Systems Const Denies chills, Denies fatigue, Denies fever(s), Denies weight gain and Denies weight loss ENT Denies dizziness Card Denies chest pain, Denies leg edema, Denies lightheadedness, Denies palpitations, Denies dyspnea on exertion, Denies orthopnea and Denies other Resp Denies cough and Denies dyspnea on exertion GI Denies hematochezia and Denies change in stool character Musc Denies abnormal gait, Denies muscle weakness, Denies numbness, Denies radiating pain into limb and Denies tingling Neuro Denies abnormal gait, Denies dizziness, Denies numbness and Denies tingling Endo Denies fatigue and Denies palpitations Physical Exam Vital Signs: Last Vital Signs Pulse 42 L 04/08/24 13:55 BP 128/62 04/08/24 13:55 BMI result Body Mass Index 41.2 Const General: comfortable and no acute distress Orientation/consciousness: patient oriented x3 HEENT Other: Unremarkable Head: Yes normal to inspection Neck Neck: Yes normal visual inspection Chest Chest palpation & inspection: normal inspection of the chest Resp Auscultation: clear to auscultation bilaterally Cardio Palpation: normal PMI Heart sounds: S1 normal heart sound present, S2 normal heart sound present, no gallops, no murmurs and no rubs GI Palpation (GI): Soft to palpation Back/Spine/Pelvis Other: unremarkable Skin General skin exam: no rashes or lesions noted Neuro General: patient oriented x3 Extrem General: Yes normal to inspection Psych Mental Status: mental status grossly normal Assessment & Plan Assessment & Plan (1) PVC (premature ventricular contraction): Comment: He has frequent PVCs . In addition to PACs Code(s): I49.3 - Ventricular premature depolarization Category: Medical (2) PAC (premature atrial contraction): Comment: His cardiac workup including Holter monitor has shown frequent PACs. The presence of the obstructive sleep apnea may be contributing to the arrhythmias. Code(s): I49.1 - Atrial premature depolarization Category: Medical (3) Morbid obesity: Comment: Current BMI 40.2. He has been morbidly obese for the past many years. Has not been able to lose much weight. Code(s): E66.01 - Morbid (severe) obesity due to excess calories Category: Medical (4) Obstructive sleep apnea: Comment: Patient has longstanding history of obstructive sleep apnea. Original sleep study in 2010 was consistent with very severe obstructive sleep apnea and nocturnal hypoxemia. Current home-based sleep study showed mild obstructive sleep apnea with mild nocturnal hypoxemia. He has been started on CPAP therapy again and he is compliant but hours of usage are somewhat less . Code(s): G47.33 - Obstructive sleep apnea (adult) (pediatric) Category: Medical Plan Cardiac studies reviewed. In the echocardiogram, LVEF 60-65%; no significant valvular findings and otherwise unremarkable. In the stress test, he was able to exercise for 7.4 METS on Lester protocol; hypertensive blood pressure response. No EKG evidence of ischemia. Perfusion imaging was also unremarkable. Holter shows underlying sinus rhythm with an average rate of 65/Min. Frequent PACs with burden of 16%. Frequent PVCs with burden of 12%. Rare couplets but no significant runs. Overall, morbid obesity, obstructive sleep apnea, frequent ectopy. Importance of weight loss discussed. Recommended that he lose as much weight as able and hopefully he will try. With regard to obstructive sleep apnea, continue CPAP and now he is going to Pulmonary. Follow up in 6 months' time and we will repeat an echocardiogram/Holter at that time. Patient agrees with plan. Orders: Orders ECG 3 day holter monitor 6 Months I49.3 - Ventricular premature depolarization CA echo transthoracic complete 6 Months I49.3 - Ventricular premature depolarization Coding Level of Care Code Est Pt Level 4 (82752) Complex EM visit Add On G2211 Diagnoses PVC (premature ventricular contraction) I49.3 PAC (premature atrial contraction) I49.1 Morbid obesity E66.01 Obstructive sleep apnea G47.33
--- OUTSIDE RECORDS SUMMARY | 2024-04-08 16:41 | XMS_ITS | Patient Health Record ---
Author Organization [facility] Address [address] [place] [address] Care Team Providers Care Software Engineering Analyst Name Role Phone Chino Manning MD Primary Care Provider Kimo Crocker Jr Unavailable ALLERGIES No Known Allergies RESULTS Component Value Reference Range Notes Pathology Reviewed date:08/13/2023 08:47:15 AM Interpretation: Performing Lab:[facility], [address] [place] [phone] Notes/Report: REASON FOR REFERRAL No Information MEDICATIONS [...] Problem Colon cancer screening (Z12.11) Active confirmed 840935273 Problem Encounter for other preprocedural examination (Z01.818) Active confirmed 08815879 Problem Gastroesophageal reflux disease (K21.9) Active confirmed Gastroesophagea l reflux disease (136171305) Problem Gastroesophageal reflux disease, unspecified whether esophagitis present (K21.9) Active confirmed 310236238 VITAL SIGNS Blood pressure diastolic 00 mm Hg 06/26/2023 Height 70.25 in 06/26/2023 Blood pressure systolic 00 mm Hg 06/26/2023 Weight 286 lbs 06/26/2023 BMI 40.74 kg/m2 06/26/2023 Encounters Encounter Location Date Provider Diagnosis [facility] [place] [address] [place] [phone] 08/05/2023 Kimo Adan Jr Encounter for screening colonoscopy Z12.11 ; Colon polyps K63.5 and Gastroesophageal reflux disease K21.9 [facility] [address] [place] [phone] 06/26/2023 Kimo Adan Jr Gastroesophageal reflux disease, unspecified whether esophagitis present K21.9 ; Colon cancer screening Z12.11 and Encounter for long-term (current) use of NSAIDs Z79.1 [facility] [address] [place] [phone] 06/26/2023 Kimo Adan Jr [facility] [address] [place] [phone] 08/08/2023 Kimo Adan Jr ASSESSMENTS Encounter Date [...] Insured Coverage Start Date Coverage End Date [facility] [address] [place] [phone] [id number] LULA KAY Self - patient is the insured MEDICAL (GENERAL) HISTORY Medical History History ICD Code hypertension post nasal drip sleep apnea, uses CPAP minor mitral valve prolapse peptic ulcer disease gallstones 07/2017 cyst on renal and kidney stones Surgical History Surgery Date(Month/Year)
--- OUTSIDE RECORDS SUMMARY | 2024-04-08 16:41 | XMS_ITS ---
Author Organization [facility] Address [address] [place] [phone] Care Team Providers Care Conservation Agent Name Role Phone Chino Manning MD Primary Care Provider Unavaila samira Adan Jr, Kimo Unavailable MEDICATIONS Medication SIG (Take, Route, Fr equency, Duration) Notes Start Date End Date Status Omeprazole 40 MG 1 Orally Once a day for 30 day(s) 08/08/2023 Active Encounters Encounter Location Date Provider Diagnosis [facility] [address] [place] [phone] 08/08/2023 Kimo Adna Jr PLAN OF TREATMENT Medication Medication Name Sig Start Date Stop Date Notes Omeprazole 40 MG 1 Orally Once a day for 30 day(s) 024
--- OUTSIDE RECORDS SUMMARY | 2024-04-08 16:41 | XMS_ITS ---
Author Organization [facility] Address [address] [place] [phone] Care Team Providers Care Professor Of Floriculture Name Role Phone Chino Manning MD Primary Care Provider Unavaila Kimo Carrera Jr Unavailable Encounters Encounter Location Date Provider Diagnosis [facility] [address] [place] [phone] 06/26/2023 Kimo Adan Jr PLAN OF TREATMENT No Information
--- OUTSIDE RECORDS SUMMARY | 2024-04-08 16:41 | XMS_ITS ---
Author Organization [facility] Address [address] [place] [phone] Care Team Providers Care Concrete Gun Operator Name Role Phone Chino Manning MD Primary Care Provider Kimo Crocker Jr Unavailable [phone] REASON FOR VISIT gerd, screening PROBLEMS Problem Type ICD Code Onset Dates Problem Status W/U Status Risk SNOMED Code Notes Problem Gastroesophageal reflux disease (K21.9) Active confirmed Gastroesophagea l reflux disease (811786262) Encounters Encounter Location Date Provider Diagnosis [facility] [place] [address] [place] [phone] 08/05/2023 Kimo Adan Jr Encounter for screening [...]
== END 2024-04-08 14:21 | disposition home or self-care (01) ==
PROVIDERS: PCP Internal Medicine; Visit Provider Internal Medicine
DX: I49.3 Ventricular premature depolarization (principal); I49.1 Atrial premature depolarization; E66.01 Morbid (severe) obesity due to excess calories; G47.33 Obstructive sleep apnea (adult) (pediatric)
CPT/HCPCS: 99214

== ENCOUNTER 2024-04-21 16:13 | Emergency (ER) | payer BC, SELFPAY ==
[2024-04-21 16:48] VITALS: BP 129/45; PULSE 42; RESP 17; TEMP 36.9; O2SAT 98; BMI 41.2
--- NOTE | 2024-04-21 16:54 | ECG_ITS ---
Test Reason : BRADYCARDIA Blood Pressure : */* mmHG Vent. Rate : 68 BPM Atrial Rate : 68 BPM P-R Int : 172 ms QRS Dur : 94 ms QT Int : 376 ms P-R-T Axes : 8 -46 6 degrees QTcB Int : 399 ms Sinus rhythm with occasional Premature ventricular complexes and Premature atrial complexes Left axis deviation Inferior infarct , age undetermined Abnormal ECG No previous ECGs available Referred By: Konstantin Busch Electronically Signed By: CRISTOFER TIRADO
--- NOTE | 2024-04-21 16:55 | ED.GENADULT ---
HPI - General Adult General Chief complaint: General Medical Stated complaint: cellulitis, referred from Time Seen by Provider: 04/21/24 22:03 Source: patient Limitations: no limitations History of Present Illness ED Provider: Lupe Scott PA-C HPI narrative: 63-year-old male with a history of morbid obesity, hyperlipidemia, hypertension presents with infected scalp cyst. Patient states he was seen by primary care place an antibiotics for suspect folliculitis of the scalp. He has noted 1 lesion that has increased in size, has become more tender and painful. Patient has been picking at the site there has been drainage. Denies fever. Related Data Home Medications ?Medication ?Instructions ?Recorded ?Confirmed simvastatin 20 mg tablet 20 mg PO DAILY 03/05/21 04/08/24 loratadine 10 mg tablet 10 mg PO DAILY 06/09/23 04/08/24 lisinopril 5 mg tablet 10 mg PO DAILY 10/08/23 04/08/24 Previous Rx's ?Medication ?Instructions ?Recorded pyridoxine (vitamin B6) 50 mg 50 mg PO DAILY 90 days #90 caps 07/08/23 capsule Allergies Allergy/AdvReac Type Severity Reaction Status Date / Time No Known Allergies Allergy Verified 04/21/24 16:51 Review of Systems Review of Systems: Yes all other systems are reviewed and are negative Constitutional: Constitutional: Denies fatigue and Denies fever(s) Integumentary/Breasts: Skin/Breast: Reports lesions Endocrine: Endocrine: Denies fatigue PMFSH Past Medical History Attestation statement: The following information was validated with the patient. Medical History (Updated 04/22/24 @ 00:01 by Magali Caro) Nocturnal hypoxemia Sinus bradycardia PAC (premature atrial contraction) PVC (premature ventricular contraction) CATARINA on CPAP Renal cyst Renal calculi Gallstones High cholesterol Hypertension Surgical History Hx of colonoscopy Family History Family History Father CHF (congestive heart failure) Mother Pancreatic cancer Sister COPD (chronic obstructive pulmonary disease) HTN (hypertension) Social History Social History Alcohol intake: never Patient Tobacco Use Status: Never used Tobacco Advance Directives: No Advance Directives Information Provided: Yes Do you have a plan to hurt others: No Plan Physical Exam ED Vital Signs: Vital Signs - 24 hr 04/21/24 16:48 04/21/24 21:01 Temperature 98.5 F 98.9 F Pulse Rate 42 L 54 Respiratory Rate 17 16 Blood Pressure 129/45 L 132/71 Pulse Oximetry 98 96 Oxygen Delivery Method Room Air Room Air BMI result Body Mass Index 41.2 Const Other: Alert Orientation/consciousness: patient oriented x3 Resp Effort & Inspection: normal respiratory effort Cardio Other: Normal peripheral perfusion Skin Other: Warm dry no rash, tender swelling noted behind right ear over the scalp, consistent with an infected sebaceous cyst, there was an open region that has been draining with the patient had picked at it, overlying erythema Neuro General: patient oriented x3, gait normal, no focal motor deficits and CN's II-XI intact bilaterally Psych Other: Cooperative Course Course Course Narrative: RME, this is a rapid medical exam performed by Tyshawn Busch please refer to primary provider for complete H&P- 63-year-old male with past medical history significant for hypertension, obesity presents for evaluation of folliculitis. Patient is coming from urgent care. He was seen there 2 days ago due to a mild folliculitis above his ear. He was given mupirocin, doxycycline and Keflex. He went back to urgent care today for a wound check and apparently the redness and swelling is 3 times the size as it was 2 days ago. He was sent here for further evaluation. He was found to be bradycardic as low as 38 on the monitor. Plan for EKG. He reports he recently saw Cardiology and a nuclear stress test due to bradycardia. He is on lisinopril but no beta-blockers Medications Administered Discontinued Medications Generic Name Dose Route Start Last Admin Trade Name Freq PRN Reason Stop Dose Admin Doxycycline Monohydrate 100 mg 04/21/24 22:29 04/21/24 22:40 Doxycycline Monohydrate 100 Mg Capsule PO 04/21/24 22:30 100 mg ONCE ONE Administration Lidocaine/Epinephrine 10 ml 04/21/24 22:29 04/21/24 23:29 Lidocaine Hcl 1%/Epi 1:100,000 10 Ml Vial INFILTRATI 04/21/24 22:30 10 ml ONCE ONE Administration Procedures Abscess I/D Site: scalp Side (if applicable): right Sedation/analgesia: none Local Anesthetic: lidocaine 1% and with epi Amount of anesthesia used (mL): 1 Technique: incised with blade Amount of fluid expressed (mL): 2 Sent for culture/gram staining?: No Irrigation: No Packing used?: none Medical Decision Making Medical Decision Making [facility] Narrative: 63-year-old male with a history of morbid obesity, hyperlipidemia, hypertension presents with infected scalp cyst. Patient states he was seen by primary care place an antibiotics for suspect folliculitis of the scalp. He has noted 1 lesion that has increased in size, has become more tender and painful. Patient has been picking at the site there has been drainage. Denies fever. No relevant chronic issues History: Per patient I have considered the following differential diagnoses: Infected cyst, cellulitis, purulent cellulitis, abscess, folliculitis Plan: Patient has an infected cyst, I and D he had, minimal drainage came out, I explained to the patient that given this is assessed, it may recur. Place on antibiotics. Lab Data 04/21/24 17:24 04/21/24 17:24 Labs: Lab Results 04/21/24 Range/Units 17:24 WBC 9.5 (4.8-10.8) X10*3/uL RBC 5.36 (4.60-5.80) X10*6/uL Hgb 16.4 (14.0-18.0) g/dl Hct 47.3 (42.0-52.0) % MCV 88.2 (80.0-98.0) fL MCH 30.6 (27.0-33.0) pg MCHC 34.7 (31.0-36.0) g/dl RDW 13.2 (11.0-16.0) % Plt Count 229 (160-400) X10*3/uL MPV 9.6 (9.4-12.4) fL Immature Gran % (Auto) 0.4 (0.0-0.4) % Neut % (Auto) 69.4 (45-73) % Lymph % (Auto) 17.2 L (20-40) % [place] % (Auto) 10.0 (2-11) % Eos % (Auto) 1.9 (0-4) % Baso % (Auto) 1.1 (0-2) % Lymph # (Auto) 1.6 (1.2-4.9) X10*3/uL [place] # (Auto) 1.0 (0.1-1.2) X10*3/uL Eos # (Auto) 0.2 (0.0-0.4) X10*3/uL Baso # (Auto) 0.1 (0.0-0.2) X10*3/uL Abs Immat Gran (auto) 0.04 H (0.00-0.03) X10*3/uL Absolute Neuts (auto) 6.6 (2.0-8.3) x10*3/uL Absolute Nucleated RBC 0.000 (0.0-0.012) X10*3/uL Nucleated RBC % (auto) 0.0 (0.0-0.2) /100WBC Sodium 139 (135-145) mmol/L Potassium 4.6 (3.3-5.1) mmol/L Chloride 107 (96-108) mmol/L Carbon Dioxide 26 (22-29) mmol/L Anion Gap 11 L (12-20) BUN 20 H (9-16) mg/dL Creatinine 0.92 (0.5-1.4) mg/dL Estim Creat Clear Calc 112.8 Estimated GFR > 60 Random Glucose 84 (60-115) mg/dL Lactic Acid 0.7 (0.5-2.0) mmol/L Calcium 9.3 (8.4-10.2) mg/dL Magnesium 2.2 (1.6-2.6) mg/dL Total Bilirubin 0.8 (0.0-1.0) mg/dL AST 36 (5-37) U/L ALT 46 H (0-40) U/L Alkaline Phosphatase 88 (39-117) U/L Total Protein 8.1 H (6.5-8.0) g/dL Albumin 4.3 (3.5-5.0) g/dL Lipase 37 (8-78) U/L Discharge Plan Discharge Clinical Impression: Infected cyst of skin Patient Disposition: Home, Self-Care Instructions: Cyst (ED) Additional Instructions: You had an infected skin cyst that was open and drained. I attempted to remove the cyst capsule, if I did not successfully remove the entire capsule, the cyst could return. You have 3 sutures that were used to close the incision site. The sutures can be removed in 7 days. Continue to take your doxycycline, be sure to complete the antibiotic. Prescriptions: No Action pyridoxine (vitamin B6) 50 mg capsule 50 mg PO DAILY 90 Days Qty: 90 3RF simvastatin 20 mg tablet 20 mg PO DAILY lisinopril 5 mg tablet 10 mg PO DAILY loratadine 10 mg tablet 10 mg PO DAILY Interventions: ED Discharge Assessment Last Done: 04/21/24 23:42 Discharge Date/Time: 04/21/24 23:45 Print Language: Welsh
[2024-04-21 17:33] LABS: MANUAL DIFF FLAG NO
[2024-04-21 17:35] LABS: Basophils Absolute Auto 0.1 X10*3/uL (0.0-0.2); Basophils Percent Auto 1.1 % (0-2); Eosinophils Absolute Auto 0.2 X10*3/uL (0.0-0.4); Eosinophils Percent Auto 1.9 % (0-4); Hematocrit 47.3 % (42.0-52.0); Hemoglobin 16.4 g/dl (14.0-18.0); Imm Gran Abs Auto 0.04 X10*3/uL (0.00-0.03); Imm Gran Pct Auto 0.4 % (0.0-0.4); Lymphocytes Absolute Auto 1.6 X10*3/uL (1.2-4.9); Lymphocytes Percent Auto 17.2 % (20-40); Mean Corpuscular HGB Conc 34.7 g/dl (31.0-36.0); Mean Corpuscular Hemoglobin 30.6 pg (27.0-33.0); Mean Corpuscular Volume 88.2 fL (80.0-98.0); Mean Platelet Volume 9.6 fL (9.4-12.4); Neutrophils Absolute Auto 6.6 x10*3/uL (2.0-8.3); Neutrophils Percent Auto 69.4 % (45-73); Platelet Count 229 X10*3/uL (160-400); Red Blood Count 5.36 X10*6/uL (4.60-5.80); Red Cell Distribution Width 13.2 % (11.0-16.0); White Blood Count 9.5 X10*3/uL (4.8-10.8)
[2024-04-21 17:52] LABS: Lactic Acid 0.7 mmol/L (0.5-2.0)
[2024-04-21 17:54] LABS: Alanine Aminotransferase 46 U/L (0-40); Albumin Level 4.3 g/dL (3.5-5.0); Alkaline Phosphatase 88 U/L (39-117); Anion Gap 11 (12-20); Aspartate Amino Transferase 36 U/L (5-37); Bilirubin Total 0.8 mg/dL (0.0-1.0); Blood Urea Nitrogen 20 mg/dL (9-16); Calcium 9.3 mg/dL (8.4-10.2); Carbon Dioxide 26 mmol/L (22-29); Chloride 107 mmol/L (96-108); Creatinine Clr Calc Pharmacy 112.8; Estimated Glomerular Filt Rate > 60; Glucose Random 84 mg/dL (60-115); Lipase 37 U/L (8-78); Magnesium 2.2 mg/dL (1.6-2.6); Potassium 4.6 mmol/L (3.3-5.1); Sodium 139 mmol/L (135-145); Total Protein 8.1 g/dL (6.5-8.0)
--- OUTSIDE RECORDS SUMMARY | 2024-04-21 18:52 | XMS_ITS ---
Author Organization [facility] Address [address] [place] [phone] Care Team Providers Care Roof Technician Name Role Phone Kerri LAN, Chino Primary Care Provider Yary Adan Jr, Kimo Unavailable REASON FOR VISIT gerd, screening Problems Problem Type SNOMED Code ICD Code Onset Dates Problem Status W/U Status Risk Notes Problem Gastroesophageal reflux disease (989357889) Gastroesophageal reflux disease (K21.9) Active confirmed Encounters Encounter Location Date Provider Diagnosis [facility] Outpatient [address] [place] [phone] 08/05/2023 Kimo Adan Jr Encounter for screening colonoscopy Z12.11 ; Colon polyps K63.5 and Gastroesophageal reflux disease K21.9 Assessments Encounter Date Diagnosis (ICD Code) Assessment Notes Treatment Notes Treatment Clinical Notes Section Notes 08/05/2023 Encounter for screening colonoscopy (ICD-10 - Z12.11) 08/05/2023 Colon polyps (ICD-10 - K63.5) 08/05/2023 Gastroesophageal reflux disease (ICD-10 - K21.9) Plan Of Treatment No Information Progress Notes * ARLEN KAYOB:1960 (63 yo M)Acc No.[id number]:08/05/2023 EGD and COL/MAC Patient:?LULA KAY Provider:?Kimo Adan MD :1960???Age:62 Y???Sex:Male Tereso e:08/05/2023 Address:[address] [place] [address] Pcp:Chino Manning MD Subjective: * Chief Complaints: * ???1. Gerd, screening. * Medical History:? Objective: * Vitals:? Assessment: * Assessment: 1.?Encounter for screening c olonoscopy - Z12.11 (Primary)???2.?Colon polyps - K63.5???3.?Gastroesophageal reflux disease - K21.9??? Plan: * Treatment: * Procedure Codes:?69526 COLON OSCOPY AND BIOPSY, 66836 UPPER GI ENDOSCOPY, BIOPSY * * The named appointment provid er may or may not be the originator of this progress note, and it is not deemed complete until electronically signed by the appointment provider. Sign off status: Pending * Provider:?Kimo Adan MD Date:?0 08/05/2023 Generated for Adithya madera/James/Jefferyitting on:?04/21/2024 06:51 PM EDT
--- OUTSIDE RECORDS SUMMARY | 2024-04-21 18:52 | XMS_ITS ---
Author Organization [facility] Address [address] [place] [phone] Care Team Providers Care Gas And Oil Servicer Name Role Phone Chino Manning MD Primary Care Provider Kimo Crocker Jr Unavailable Encounters Encounter Location Date Provider Diagnosis [facility] [address] [place] [phone] 06/26/2023 Kimo Adan Jr Plan Of Treatment No Information Progress Notes * ARLEN KAYOB:1960 (62 yo M)Acc No.[id number]:06/26/2023 Patient:?ELIZA LULA :1960???Age:62 Y???Sex:Male Address:[address] [place] [address], [address] * true * Date:? Generated for Meeti santy/James/eTransmitting on:?04/21/2024 06:52 PM EDT
--- OUTSIDE RECORDS SUMMARY | 2024-04-21 18:52 | XMS_ITS | Patient Health Record ---
Author Organization [facility] Address [address] [place] [address] Care Team Providers Care Cover Machine Operator Name Role Phone Kerri LAN, Chino Primary Care Provider Holliea Kimo Carrera Jr Unavailable Allergies No Known Allergies Results Component Value Reference Range Notes Pathology Reviewed date:08/13/2023 08:47:15 AM Interpretation: Performing Lab:[facility], [address] [place] [phone] Notes/Report: Name: Lula Kay Age/Sex: 62/M : 1960 Unit#: [id number] Attend Dr: Kimo Adan MD Re08/05/23 Status : [facility] Disch: SPEC : [id number] RECD : 08/05/23 STATUS: TONYA FORD NUM: [id number] PRISCILLA: 08/05/231116 [facility] DR: Kimo Adan MD ENTERED: 08/05/23 10 SP TYPE: Surgical OTHR DR: Chino Manning MD ORDERED: HE Stain/ , Gross Micro L4/5, IHC/2, Special st. 2/4, H. pylori/2, AB/PAS/4 Diagnosis A. Duodenum, biopsy: Active erosive/peptic duodenitis. B. Gastric antrum, b iopsy: Gastric antral mucosa with focal minimal chronic inactive inflammation; negati ve for H pylori, intestinal metaplasia and dysplasia. C. Gastric polyp, bi opsy: Fundic gland polyp with minimal chronic inactive inflammation; negati ve for H pylori, intestinal metaplasia and dysplasia. D. Esophagogastric j unction, biopsy: Squamocolumnar mucosa with hyperplasia, mild inflammation, and fo samantha multilayered epithelium; negative for intestinal metaplasia and dysplasia (see comment). E. Colon, hepatic fl exure, polyp: Tubular adenoma, completely excised; negative for high-grade dysplasia and carcinoma. Comment: (D): Multilayered ep ithelium may be associated with Sauer's esophagus and follow-up is warranted. Clinical History Pre-Op Dx: GERD, screening Post-Op Dx: GERD, ga stric polyp, duodenitis, colon polyp Microscopic Description Microscopic sections reviewed. Immunostains for H. pylori on B and C are negative. AB/PAS on A is negative for evidence of chronic injury. AB/PAS on B, C and D are negative for intestinal metaplasi a. Controls stain appropriately. Material Received A. Duodenum bx's B. Antral bx's C. Gastric polyp bx's D. EG junction bx's E. Polyp at hepatic flexure CONTINUED ON NEXT PAGE Name: Lula Kay Age/Sex: 62/M : 1960 Unit#: [id number] Attend Dr: Kimo Adan MD Re08/05/23 [facility] Location: [facility] Disch: SPEC : [id number] RECD : 08/05/23-1146 STATUS: TONYA FORD NUM: [id number] PRISCILLA: 08/05/23-[address] [facility] [address]: Kimo Adan MD ENTERED: 08/05/23- 10 SP TYPE: Surgical OTHR DR: Chino Manning MD ORDERED: HE Stain/12 , Gross Micro L4/5, IHC/2, Special st. 2/4, H. pylori/2, AB/PAS/4 Gross Description Received in five parts. Part A: Received in formalin labeled ?duodenum bx's? are 2 kolb-pink rectangular tissue fragments each measu ring 0.4 cm, submitted in toto in a cassette labeled A. Part B: Received in formalin labeled ?antral bx's? are 2 kolb-pink irregular and rectangular tissue fragments catherine suring 0.1 and 0.45 cm, submitted in toto in a cassette labeled B. Part C: Received in formalin labeled ?gastric polyp bx's? are 2 kolb-pink irregular tissue fragments each measu ring 0.15 cm, submitted in toto in a cassette labeled C. Part D: Received in formalin labeled ?EG junction bx's? are 4 kolb-pink irregular and rectangular tissue f ragments ranging from 0.2 to 0.35 cm, submitted in toto in a cassette labeled D. Part E: Received in formalin labeled ?polyp at hepatic flexure? is a 0.3 cm kolb-pink irregular tissue fra gment, submitted in toto in a cassette labeled E. CEDS Special studies orde red and performed: Immunostain for H. pylori on B1 and C1; AB/PAS stains on A1, B1, C1 and D1. Copies To: Kimo Adan MD [facility] [address] [place] [address] Chino Manning MD [address], [address] [place] [address] Signed (si gnature on file) Nika Shweta 08/06/23 1507 END OF REPORT Reason For Referral No Information Medications Medication SIG (Take, Route, Frequency, Duration) Notes Start Date End Date Status Lisinopril 10 MG 1 tablet Orally Once a day Active Loratadine 10 MG 1 tablet Orally Once a day for 30 day(s) Active Simvastatin 20 MG 1 tablet in the even ing Orally Once a day Active Vitamin B6 50 MG TAKE 1 TABLET BY DAILY Oral for 90 Active Advil 200 [...] the procedure for 1 day 06/26/2023 Active Immunizations Vaccine Route Administration Date Status Comme nts Influenza Unknown 03/26/2018 Refused Problems Problem Type SNOMED Code ICD Code Onset Dates Problem Status W/U Status Risk Notes Problem 510034982 Colon cancer screening (Z12.11) Active confirmed Problem 29889007 Encounter for other preprocedural examination (Z01.818) Active confirmed Problem Gastroesophageal reflux disease (083650197) Gastroesophageal reflux disease (K21.9) Active confirmed Problem 745039371 Gastroesophageal reflux disease, unspecified whether esophagitis present (K21.9) Active confirmed Vital Signs Blood pressure diastolic 00 mm Hg 06/26/2023 Height 70.25 in 06/26/2023 Blood pressure systolic 00 mm Hg 06/26/2023 Weight 286 lbs 06/26/2023 BMI 40.74 kg/m2 06/26/2023 Encounters Encounter Location Date Provider Diagnosis [facility] Outpatient [address] [place] [phone] 08/05/2023 Kimo Adan Jr Encounter for screening colonoscopy Z12.11 ; Colon polyps K63.5 and Gastroesophageal reflux disease K21.9 [facility] [address] [place] [phone] 06/26/2023 Kimo Adan Jr Gastroesophageal reflux disease, unspecified whether esophagitis present K21.9 ; Colon cancer screening Z12.11 and Encounter for long-term (current) use of NSAIDs Z79.1 [facility] [address] [place] [phone] 06/26/2023 Kimo Adan Jr [facility] [address] [place] [phone] 08/08/2023 Kimo Aadn Jr Assessments Encounter Date Diagnosis (ICD Code) Assessment Notes Treatment Notes Treatment Clinical Notes Section Notes 08/05/2023 Encounter for screening colonoscopy (ICD-10 - Z12.11) 08/05/2023 Colon polyps (ICD-10 - K63.5) 06/26/2023 Colon cancer screening (ICD-10 - Z12.11) We discussed gastroesophageal reflux disease today. We discussed diet, lifestyle modifications, and weight management. He will continue these measures and used p.r.n. [id number]-dqz-rktynlz omeprazole. Endoscopy will be arranged. He is aware of his need for followup colonoscopy in this will be arranged as well. We discussed risks and benefits of both procedures today. He understands and agrees to proceed. He is advised to stop NSAIDs one week before the procedure 06/26/2023 Gastroesophageal reflux disease, unspecified whether esophagitis present (ICD-10 - K21.9) Colonoscopy, Endoscopy material was printed We discussed gastroesophageal reflux disease today. We discussed diet, lifestyle modifications, and weight management. He will continue these measures and used p.r.n. ambr-pyy-gyhymcx omeprazole. Endoscopy will be arranged. He is aware of his need for followup colonoscopy in this will be arranged as well. We discussed risks and benefits of both procedures today. He understands and agrees to proceed. He is advised to stop NSAIDs one week before the procedure 08/05/2023 Gastroesophageal reflux disease (ICD-10 - K21.9) 06/26/2023 Encounter for long-term (current) use of NSAIDs (ICD-10 - Z79.1) We discussed gastroesophageal reflux disease today. We discussed diet, lifestyle modifications, and weight management. He will continue these measures and used p.r.n. eihs-son-nygfnzo omeprazole. Endoscopy will be arranged. He is aware of his need for followup colonoscopy in this will be arranged as well. We discussed risks and benefits of both procedures today. He understands and agrees to proceed. He is advised to stop NSAIDs one week before the procedure Plan Of Treatment Future Test Test Name Order Date COLONOSCOPY 03/26/2018 UPPER GI ENDOSCOPY 06/26/2023 COLONOSCOPY 06/26/2023 Insurance Providers Payer Name Payer Address Payer Phone Subscriber Number Group Number Insured Name Patient Relationship to Insured Coverage Start Date Coverage End Date [facility] [address] [place] [address] [phone] [id number] LULA KAY Self - patient is the insured Medical (General) History Medical History History ICD Code hypertension post nasal drip sleep apnea, uses CPAP minor mitral valve prolapse peptic ulcer disease gallstones 07/2017 cyst on renal and kidney stones Surgical History Surgery Date(Month/Year)
--- OUTSIDE RECORDS SUMMARY | 2024-04-21 18:52 | XMS_ITS ---
Author Organization [facility] Address [address] [place] [phone] Care Team Providers Care Staff Educator Name Role Phone Chino Manning MD Primary Care Provider Yary Adan Jr, Kimo Unavailable [phone] Medications Medication SIG (Take, Route, Fr equency, Duration) Notes Start Date End Date Status Omeprazole 40 MG 1 Orally Once a day for 30 day(s) 08/08/2023 Active Encounters Encounter Location Date Provider Diagnosis [facility] [address] [place] [phone] 08/08/2023 Kimo Adan Jr Plan Of Treatment Medication Medication Name Sig Start Date Stop Date Notes Omeprazole 40 MG 1 Orally Once a day for 30 day(s) 024 Progress Notes * ELIZA NELLMALVINOB:1960 (62 yo M)Acc No.[id number]:08/08/2023 Patient:?ELIZA LULA :1960???Age:62 Y???Sex:Male Address:[address] [place] [address], [address] * Refills? Start Omeprazole Capsule Delayed Release, 40 MG, Orally, 30, 1, Once a day, 30 day(s), Refills=1 * true * Date:? Generated for Adithya madera/James/eTransmitting on:?04/21/2024 06:52 PM EDT
[2024-04-21 21:01] VITALS: BP 132/71; PULSE 54; RESP 16; TEMP 37.2; O2SAT 96
--- NOTE | 2024-04-21 21:05 | MHC.EDTECH ---
This pct just assumed care of Patient ,vitals taken ,Patient was change into hospital attire .
[2024-04-21] MEDS: Doxycycline Monohydrate 100 MG CAPSULE PO (22:40)
[2024-04-21] MEDS: Lidocaine HCl 1%/Epi 1:100,000 10 ML VIAL INFILTRATI (23:29)
[2024-04-21 23:42] VITALS: BP 142/82; PULSE 63; RESP 16; TEMP 36.6; O2SAT 99
== END 2024-04-21 23:45 | disposition home or self-care (01) ==
PROVIDERS: Physician Assistant; Emergency Provider Emergency Medicine Emergency Medical Services; PCP Internal Medicine
DX: L02.811 Cutaneous abscess of head [any part, except face] (principal); R00.1 Bradycardia, unspecified; R94.31 Abnormal electrocardiogram [ECG] [EKG]; I10 Essential (primary) hypertension; Z79.899 Other long term (current) drug therapy
CPT/HCPCS: 10060; 36415; 80053; 83605; 83690; 83735; 85025; 87040; 93005; 99284; J2004

== ENCOUNTER → 2024-04-21 16:54 | Outpatient (BNV) | payer BC, SELFPAY | PROVIDERS: Emergency Provider Emergency Medicine Emergency Medical Services; PCP Internal Medicine; Visit Provider Internal Medicine | DX: I49.3 Ventricular premature depolarization (principal); I49.1 Atrial premature depolarization | CPT/HCPCS: 93010 ==

== ENCOUNTER 2024-05-24 15:24 | Outpatient (AMB) | payer BC, SELFPAY ==
[2024-05-24 15:32] VITALS: BP 120/68; PULSE 45; O2SAT 96; BMI 40.3
--- NOTE | 2024-05-24 15:32 | MHC.OFFVIS ---
Vital Signs 05/24/24 15:32 Height 5 ft 10 in Weight 281 lb 1.43 oz BMI 40.3 BP 120/68 Blood Pressure Location Lt brachial Position Sitting Pulse 45 L Pulse Source Pulse Oximeter Pulse Oximetry (%) 96 Oxygen Delivery Method Room Air Intake Visit Reasons: Sleep apnea Intake Note: pt is here for CATARINA follow up and states on/off with cpap Basket Braider Required: No Allergies No Known Allergies Allergy (Verified 05/24/24 15:49) Medication List - Last Reconciled 05/24/24 by Rio Chaparro MD lisinopril 10 mg PO DAILY loratadine 10 mg PO DAILY omeprazole 40 mg PO DAILY PRN pyridoxine (vitamin B6) 50 mg PO DAILY 90 days simvastatin 20 mg PO DAILY Do you need a note to return to daycare/school/sports/work: No HPI HPI Sleep apnea: Details: THIS 63 YEARS OLD GENTLEMAN IS A CASE OF MORBID OBESITY, ABOUT OBSTRUCTIVE SLEEP APNEA, AND IS HERE FOR 6 MONTHS FOLLOW-UP HE CLAIMS THAT HE HAS BEEN USING CPAP BUT THE COMPLIANCE REPORT INDICATES THAT HE IS MISSING THE USE OF CPAP FOR MORE THAN HALF OF THE NIGHTS. HIS SLEEPING SCHEDULE IS ERRATIC AND HE GOES TO SLEEP LATE AT NIGHT AND HAS TO WAKE UP AT 04:00 IN THE MORNING. THEN. HE IS BUSY DURING THE DAY IN WORK HE DOES CLAIM TO BENEFIT FROM THE USE OF CPAP, AND HAS LESS DAYTIME SLEEPINESS. HE DENIES ANY PROBLEM WITH THE MASK OR CPAP MACHINE. [facility] Medical History Nocturnal hypoxemia Sinus bradycardia PAC (premature atrial contraction) PVC (premature ventricular contraction) CATARINA on CPAP Renal cyst Renal calculi Gallstones High cholesterol Hypertension Surgical History Hx of colonoscopy Family History Father CHF (congestive heart failure) Mother Pancreatic cancer Sister COPD (chronic obstructive pulmonary disease) HTN (hypertension) Social History Alcohol intake: never Patient Tobacco Use Status: Never used Tobacco Review of Systems Const All systems reviewed & are unremarkable except as noted in HPI and below Eyes Reports no additional complaints ENT Reports nasal congestion (off and on ) Card Denies chest pain, Reports irregular heart rhythm, Denies leg edema and Denies lightheadedness Resp Reports no additional complaints, Denies cough and Denies wheezing GI Reports no additional complaints Reports no additional complaints Skin/Breast Reports system reviewed and no additional complaints, except as documented Neuro Reports no additional complaints Psych Reports no additional complaints Aller/Immun Denies wheezing Physical Exam Vital Signs: Last Vital Signs Pulse 45 L 05/24/24 15:32 BP 120/68 05/24/24 15:32 Pulse Ox 96 05/24/24 15:32 Oxygen Delivery Method Room Air 05/24/24 15:32 BMI result Body Mass Index 40.3 He is grossly obese with a round face, short and obese neck. Const General: healthy appearing (Except for being grossly obese), comfortable, no acute distress, alert and awake Orientation/consciousness: patient oriented x3 HEENT Head: Yes normal to inspection General nose exam: No nasal polyps present and No nasal discharge present Face and sinus: Yes sinuses nontender Mouth: oropharynx abnormals (Oropharynx is narrow and crowded, Mallampati scale 4) Throat: Yes posterior oropharynx normal Eyes General: appearance normal, both eyes and all related structures Neck Neck: Yes normal visual inspection, Yes no lymphadenopathy, Yes trachea midline, Yes no JVD and Yes other (Neck circumference 20-1/2 inch) Thyroid: Thyroid normal Chest Chest palpation & inspection: normal inspection of the chest, normal palpation of entire chest wall and no tenderness Resp Effort & Inspection: normal respiratory effort Auscultation: clear to auscultation bilaterally, no rales and no wheezes Cardio Palpation: normal PMI Rate: regular rate Rhythm: regular rhythm Heart sounds: no gallops and no murmurs GI Palpation (GI): Soft to palpation, nontender, No hepatosplenomegaly present and no masses Auscultation: normal bowel sounds Back/Spine/Pelvis Thoracic/Lumbar Spine: thoracic and lumbar spine normal to inspection Skin General skin exam: no rashes or lesions noted Neuro General: patient oriented x3 and no focal motor deficits Cranial nerves: Yes CN's II-XII intact bilaterally Extrem General: Yes normal to inspection, Yes no clubbing, cyanosis or edema and Yes no calf tenderness Psych Appearance: grossly normal and well kempt Speech and movement: Normal speech and movement present Results Reviewed Results Reviewed: COMPLIANCE REPORT FOR THE LAST 30 NIGHTS IS REVIEWED. HE HAS USED 16/30 NIGHTS, 53%. AVERAGE USE IT PER NIGHT IS 3 HOURS 55 MINUTES. THERE IS MILD AIR LEAK. PRESSURE USED MOSTLY 9-11 CM. RESIDUAL AHI 3.8 Assessment & Plan Assessment & Plan (1) Morbid obesity: Comment: Current BMI 40.3 He has been morbidly obese for the past many years. Has not been able to lose much weight. Code(s): E66.01 - Morbid (severe) obesity due to excess calories Category: Medical Plan: AGAIN DISCUSSED WITH HIM ABOUT HIS MORBID OBESITY AND NEED TO LOSE WEIGHT (2) Obstructive sleep apnea: Comment: Patient has longstanding history of obstructive sleep apnea. Original sleep study in 2010 was consistent with very severe obstructive sleep apnea and nocturnal hypoxemia. Recent Home-based sleep study showed mild obstructive sleep apnea with mild nocturnal hypoxemia. He has been started on CPAP therapy again. He does use the CPAP at night but his compliance remains suboptimal. Code(s): G47.33 - Obstructive sleep apnea (adult) (pediatric) Category: Medical Plan: Had a good discussion with him and, urge that he has to use the CPAP every night, he should try to use it for more than 4 hours every night. He understands and promises that he is going to increase the amount of usage. (3) Nocturnal hypoxemia: Comment: Current nocturnal hypoxemia is minimal on O2 sat below 88% for 7 minute. Overnight oximetry recording with the CPAP showed that his nocturnal hypoxemia has resolved. Code(s): G47.34 - Idiopathic sleep related nonobstructive alveolar hypoventilation Category: Medical Plan: He does not need to have any O2 supplementation at night . Coding Level of Care Code Est Pt Level 3 (77183) Diagnoses Morbid obesity E66.01 Obstructive sleep apnea G47.33 Nocturnal hypoxemia G47.34
--- OUTSIDE RECORDS SUMMARY | 2024-05-24 17:52 | XMS_ITS ---
Author Organization [facility] Address [address] [place] [phone] Care Team Providers Care Obiee Consultant Name Role Phone Chino Manning MD Primary Care Provider Yary Adan Jr, Kimo Unavailable Medications Medication SIG (Take, Route, Fr equency, Duration) Notes Start Date End Date Status Omeprazole 40 MG 1 Orally Once a day for 30 day(s) 08/08/2023 Active Encounters Encounter Location Date Provider Diagnosis [facility] [address] [place] [phone] 08/08/2023 Kimo Adan Jr Plan Of Treatment Medication Medication Name Sig Start Date Stop Date Notes Omeprazole 40 MG 1 Orally Once a day for 30 day(s) 024 Progress Notes * ELIZA NELLMALVINOB:1960 (62 yo M)Acc No.[id number]:08/08/2023 Patient:?ELIZA LULA :1960???Age:62 Y???Sex:Male Address:[address] [place] [address], [address] * Refills? Start Omeprazole Capsule Delayed Release, 40 MG, Orally, 30, 1, Once a day, 30 day(s), Refills=1 * true * Date:? Generated for Adithya madera/James/eTransmitting on:?05/24/2024 05:51 PM EDT
--- OUTSIDE RECORDS SUMMARY | 2024-05-24 17:52 | XMS_ITS ---
Author Organization [facility] Address [address] [place] [address] Care Team Providers Care Department Clinician Name Role Phone Kerri LAN, Chino Primary Care Provider Yary Adan Jr, Kimo Unavailable REASON FOR VISIT gerd, screening Problems Problem Type SNOMED Code ICD Code Onset Dates Problem Status W/U Status Risk Notes Problem Gastroesophageal reflux disease (271289082) Gastroesophageal reflux disease (K21.9) Active confirmed Encounters Encounter Location Date Provider Diagnosis [facility] [place] [address] [place] [phone] 08/05/2023 Kimo Adan Jr Encounter for screening [...] Notes * ARLEN KAYOB:1960 (63 yo M)Acc No.[id number]:08/05/2023 EGD and COL/MAC Patient:?LULA KAY Provider:?Kimo Adan MD :1960???Age:62 Y???Sex:Male Tereso e:08/05/2023 Address:[address] [place] [address] Pcp:Chino Manning MD Subjective: * Chief Complaints: * ???1. Gerd, screening. * Medical History:? Objective: * Vitals:? Assessment: * Assessment: 1.?Encounter for screening c olonoscopy - Z12.11 (Primary)???2.?Colon polyps - K63.5???3.?Gastroesophageal reflux disease - K21.9??? Plan: * Treatment: * Procedure Codes:?16463 COLON OSCOPY AND BIOPSY, 03386 UPPER GI ENDOSCOPY, BIOPSY * * The named appointment provid er may or may not be the originator of this progress note, and it is not deemed complete until electronically signed by the appointment provider. Sign off status: Pending * Provider:?Kimo Adan MD Date:?0 08/05/2023 Generated for Adithya madera/James/Jefferyitting on:?05/24/2024 05:51 PM EDT
--- OUTSIDE RECORDS SUMMARY | 2024-05-24 17:52 | XMS_ITS | Patient Health Record ---
Author Organization [facility] Address [address] [place] [address] Care Team Providers Care Riprap Placing Supervisor Name Role Phone Kerri LAN, Chino Primary Care Provider Holliea Kimo Carrera Jr Unavailable Allergies No Known Allergies Results Component Value Reference Range Notes Pathology Reviewed date:08/13/2023 08:47:15 AM Interpretation: Performing Lab:[facility], [address] [place] [phone] Notes/Report: Name: Lula Kay Age/Sex: 62/M : 1960 Unit#: [id number] Attend Dr: Kimo Adan MD Re08/05/23 Status : [facility] Location: [facility] Disch: SPEC : [id number] RECD : 08/05/23 STATUS: TONYA FORD NUM: [id number] PRISCILLA: 08/05/231116 [facility] DR: Kimo Adan MD ENTERED: 08/05/23 [...] Lula Kay Age/Sex: 62/M : 1960 Unit#: [id number] Attend Dr: Kimo Adan MD Re08/05/23 Status : [facility] Location: [facility] Disch: SPEC : [id number] RECD : 08/05/23-1146 STATUS: TONYA FORD NUM: [id number] PRISCILLA: 08/05/23-[address] [facility] [address]: Kimo Adan MD ENTERED: 08/05/23- [...] and D1. Copies To: Kimo Adan MD [facility] [address] [place] [address] Chino Manning MD [address], [address] [place] [address] Signed (si gnature on file) Nika Shweta [...] Problem Status W/U Status Risk Notes Problem [id number] Colon cancer screening (Z12.11) Active confirmed Problem 52576929 Encounter for other preprocedural examination (Z01.818) Active confirmed Problem Gastroesophageal reflux disease (066217772) Gastroesophageal reflux disease (K21.9) Active confirmed Problem 109307172 Gastroesophageal reflux disease, unspecified whether esophagitis present (K21.9) Active confirmed Vital Signs Blood pressure diastolic 00 mm Hg 06/26/2023 Height 70.25 in 06/26/2023 Blood pressure systolic 00 mm Hg 06/26/2023 Weight 286 lbs 06/26/2023 BMI 40.74 kg/m2 06/26/2023 Encounters Encounter Location Date Provider Diagnosis [facility] Outpatient [address] [place] [phone] 08/05/2023 Kimo Adan Jr Encounter for screening colonoscopy Z12.11 ; Colon polyps K63.5 and Gastroesophageal reflux disease K21.9 [facility] [address] [place] [phone] 06/26/2023 Kimo Adan Jr Gastroesophageal reflux disease, unspecified whether esophagitis present K21.9 ; Colon cancer screening Z12.11 and Encounter for long-term (current) use of NSAIDs Z79.1 [facility] [address] [place] [phone] 06/26/2023 Kimo Adan Jr [facility] [address] [place] [phone] 08/08/2023 Kimo Adan Jr Assessments Encounter Date Diagnosis (ICD Code) Assessment Notes Treatment Notes Treatment Clinical Notes Section Notes 08/05/2023 Encounter for screening colonoscopy (ICD-10 - Z12.11) 08/05/2023 Colon polyps (ICD-10 - K63.5) 06/26/2023 Colon cancer screening (ICD-10 - Z12.11) We discussed gastroesophageal reflux disease today. We discussed diet, lifestyle modifications, and weight management. He will continue these measures and used p.r.n. dvmh-hdj-ikllado omeprazole. Endoscopy will be arranged. He is [...] will continue these measures and used p.r.n. hllf-ewl-aiigyix omeprazole. Endoscopy will be arranged. He is [...] will continue these measures and used p.r.n. vfvn-ose-llsyhpk omeprazole. Endoscopy will be arranged. He is [...] Insured Coverage Start Date Coverage End Date [facility] [address] [place] [address] [phone] [id number] LULA KAY Self - patient is the insured Medical (General) History Medical History History ICD Code hypertension post nasal drip sleep apnea, uses CPAP minor mitral valve prolapse peptic ulcer disease gallstones 07/2017 cyst on renal and kidney stones Surgical History Surgery Date(Month/Year)
--- OUTSIDE RECORDS SUMMARY | 2024-05-24 17:52 | XMS_ITS ---
Author Organization [facility] Address [address] [place] [phone] Care Team Providers Care Automotive Instructor Name Role Phone Chino Manning MD Primary Care Provider Kimo Crocker Jr Unavailable Encounters Encounter Location Date Provider Diagnosis [facility] [address] [place] [phone] 06/26/2023 Kimo Adan Jr Plan Of Treatment No Information Progress Notes * ARLEN KAYOB:1960 (62 yo M)Acc No.[id number]:06/26/2023 Patient:?ELIZA LULA :1960???Age:62 Y???Sex:Male Address:[address] [place] [address], [address] * true * Date:? Generated for Meeti santy/James/eTransmitting on:?05/24/2024 05:51 PM EDT
== END 2024-05-24 15:52 | disposition home or self-care (01) ==
LOC: HO.HPS 15:24
PROVIDERS: PCP Internal Medicine; Visit Provider Internal Medicine
DX: E66.01 Morbid (severe) obesity due to excess calories (principal); G47.33 Obstructive sleep apnea (adult) (pediatric); G47.34 Idiopathic sleep related nonobstructive alveolar hypoventilation
CPT/HCPCS: 99213

== ENCOUNTER 2024-05-25 15:00 | Outpatient (REF) | payer BC, SELFPAY ==
[2024-05-25 16:24] LABS: Prostate Specific Antigen 0.25 ng/mL (<0.05-4.0)
--- OUTSIDE RECORDS SUMMARY | 2024-05-25 18:17 | XMS_ITS ---
Author Organization [facility] Address [address] [place] [phone] Care Team Providers Care Ultrasound Technologist Sonographer Name Role Phone Chino Manning MD Primary Care Provider Kimo Crocker Jr Unavailable Encounters Encounter Location Date Provider Diagnosis [facility] [address] [place] [phone] 06/26/2023 Kimo Adan Jr Plan Of Treatment No Information Progress Notes * ARLEN KAYOB:1960 (62 yo M)Acc No.[id number]:06/26/2023 Patient:?ELIZA LULA :1960???Age:62 Y???Sex:Male Address:[address] [place] [address], [address] * true * Date:? Generated for Meeti santy/James/eTransmitting on:?05/25/2024 06:17 PM EDT
--- OUTSIDE RECORDS SUMMARY | 2024-05-25 18:17 | XMS_ITS ---
Author Organization [facility] Address [address] [place] [phone] Care Team Providers Care Maintenance Assistant Name Role Phone Kerri LAN, Chino Primary Care Provider Yary Adan Jr, Kimo Unavailable REASON FOR VISIT gerd, screening Problems Problem Type SNOMED Code ICD Code Onset Dates Problem Status W/U Status Risk Notes Problem Gastroesophageal reflux disease (193179285) Gastroesophageal reflux disease (K21.9) Active confirmed Encounters Encounter Location Date Provider Diagnosis [facility] [place] [address] [place] [phone] 08/05/2023 Kimo Adan Jr Encounter for screening [...] Notes * ARLEN KAYOB:1960 (63 yo M)Acc No.[id number]:08/05/2023 EGD and COL/MAC Patient:?LULA KAY Provider:?Kimo Adan MD :1960???Age:62 Y???Sex:Male Tereso e:08/05/2023 Address:[address] [place] [address] Pcp:Chino Manning MD Subjective: * Chief Complaints: * ???1. Gerd, screening. * Medical History:? Objective: * Vitals:? Assessment: * Assessment: 1.?Encounter for screening c olonoscopy - Z12.11 (Primary)???2.?Colon polyps - K63.5???3.?Gastroesophageal reflux disease - K21.9??? Plan: * Treatment: * Procedure Codes:?47592 COLON OSCOPY AND BIOPSY, 11644 UPPER GI ENDOSCOPY, BIOPSY * * The named appointment provid er may or may not be the originator of this progress note, and it is not deemed complete until electronically signed by the appointment provider. Sign off status: Pending * Provider:?Kimo Adan MD Date:?0 08/05/2023 Generated for Adithya madera/James/Jefferyitting on:?05/25/2024 06:16 PM EDT
--- OUTSIDE RECORDS SUMMARY | 2024-05-25 18:17 | XMS_ITS | Patient Health Record ---
Author Organization [facility] Address [address] [place] [address] Care Team Providers Care Transportation Analyst Name Role Phone Kerri LAN, Chino Primary Care Provider Holliea Kimo Carrera Jr Unavailable [phone] Allergies No Known Allergies Results Component Value Reference Range Notes Pathology Reviewed date:08/13/2023 08:47:15 AM Interpretation: Performing Lab:[facility], [address] [place] [phone] Notes/Report: Name: Lula Kay Age/Sex: 62/M : 1960 Unit#: [id number] Attend Dr: Kimo Adan MD Re08/05/23 Status : [facility] Location: [facility] Disch: SPEC : [id number] RECD : 08/05/23 STATUS: TONYA FORD NUM: [id number] PRISCILLA: 08/05/231116 [facility] DR: Kimo Adan MD ENTERED: 08/05/23 10 [...] Lula Kay Age/Sex: 62/M : 1960 Unit#: [id number] Attend Dr: Kimo Adan MD Re08/05/23 Status : [facility] Location: [facility] Disch: SPEC : [id number] RECD : 08/05/23-1146 STATUS: TONYA FORD NUM: [id number] PRISCILLA: 08/05/23-1116 [facility] DR: Kimo Adan MD ENTERED: 08/05/23- 10 [...] and D1. Copies To: Kimo Adan MD [facility] [address] [place] [address] Chino Manning MD [address], [address] [place] [address] Signed (si gnature on file) Nika Shweta [...] Problem Status W/U Status Risk Notes Problem 395758470 Colon cancer screening (Z12.11) Active confirmed Problem 52233994 Encounter for other preprocedural examination (Z01.818) Active confirmed Problem Gastroesophageal reflux disease (485024959) Gastroesophageal reflux disease (K21.9) Active confirmed Problem 060942635 Gastroesophageal reflux disease, unspecified whether esophagitis present (K21.9) Active confirmed Vital Signs Blood pressure diastolic 00 mm Hg 06/26/2023 Height 70.25 in 06/26/2023 Blood pressure systolic 00 mm Hg 06/26/2023 Weight 286 lbs 06/26/2023 BMI 40.74 kg/m2 06/26/2023 Encounters Encounter Location Date Provider Diagnosis [facility] [place] [address] [place] [phone] 08/05/2023 Kimo Adan Jr Encounter for screening colonoscopy Z12.11 ; Colon polyps K63.5 and Gastroesophageal reflux disease K21.9 [facility] [address] [place] [phone] 06/26/2023 Kimo Adan Jr Gastroesophageal reflux disease, unspecified whether esophagitis present K21.9 ; Colon cancer screening Z12.11 and Encounter for long-term (current) use of NSAIDs Z79.1 [facility] [address] [place] [phone] 06/26/2023 Kimo dAan Jr [facility] [address] [place] [phone] 08/08/2023 Kimo Adan Jr Assessments Encounter Date Diagnosis (ICD Code) Assessment Notes Treatment Notes Treatment Clinical Notes Section Notes 08/05/2023 Encounter for screening colonoscopy (ICD-10 - Z12.11) 08/05/2023 Colon polyps (ICD-10 - K63.5) 06/26/2023 Colon cancer screening (ICD-10 - Z12.11) We discussed gastroesophageal reflux disease today. We discussed diet, lifestyle modifications, and weight management. He will continue these measures and used p.r.n. xrng-alb-hmewtsk omeprazole. Endoscopy will be arranged. He is [...] will continue these measures and used p.r.n. jglv-iuo-qiarzsz omeprazole. Endoscopy will be arranged. He is [...] will continue these measures and used p.r.n. cgzf-uno-pbgtqlw omeprazole. Endoscopy will be arranged. He is [...] Insured Coverage Start Date Coverage End Date [facility] [address] [place] [address] [id number] LULA KAY Self - patient is the insured Medical (General) History Medical History History ICD Code hypertension post nasal drip sleep apnea, uses CPAP minor mitral valve prolapse peptic ulcer disease gallstones 07/2017 cyst on renal and kidney stones Surgical History Surgery Date(Month/Year)
--- OUTSIDE RECORDS SUMMARY | 2024-05-25 18:17 | XMS_ITS ---
Author Organization [facility] Address [address] [place] [phone] Care Team Providers Care Icing Maker Name Role Phone Chino Manning MD Primary Care Provider Yary Adan Jr, Kimo Unavailable [phone] Medications Medication SIG (Take, Route, Fr equency, Duration) Notes Start Date End Date Status Omeprazole 40 MG 1 Orally Once a day for 30 day(s) 08/08/2023 Active Encounters Encounter Location Date Provider Diagnosis [facility] [address] [place] [phone] 08/08/2023 Kimo Adan Jr Plan Of Treatment Medication Medication Name Sig Start Date Stop Date Notes Omeprazole 40 MG 1 Orally Once a day for 30 day(s) 024 Progress Notes * KAY NELLMALVINOB:1960 (62 yo M)Acc No.[id number]:08/08/2023 Patient:?ELIZA LULA :1960???Age:62 Y???Sex:Male Address:[address] [place] [address], [address] * Refills? Start Omeprazole Capsule Delayed Release, 40 MG, Orally, 30, 1, Once a day, 30 day(s), Refills=1 * true * Date:? Generated for Adithya madera/James/eTransmitting on:?05/25/2024 06:17 PM EDT
== END 2024-05-25 15:01 | disposition home or self-care (01) ==
LOC: HO.LAB 15:00
PROVIDERS: PCP Internal Medicine; Visit Provider Nurse Practitioner Family
DX: N40.0 Benign prostatic hyperplasia without lower urinary tract symptoms (principal); Z12.5 Encounter for screening for malignant neoplasm of prostate
CPT/HCPCS: 36415; 84153

== ENCOUNTER 2024-06-07 14:03 | Outpatient (REF) | payer BC, SELFPAY ==
--- NOTE | ~2024-06-07 | US_ITS ---
EXAMINATION: US KIDNEY BILATERAL HISTORY: N28.1 - Cyst of kidney, acquired TECHNIQUE: Real-time grayscale ultrasound imaging of the kidneys was performed and images were reviewed. COMPARISON: Comparison is made with the prior examination dated 05/21/2023. FINDINGS: Right kidney: The right kidney measures 13.3 x 5.2 x 5.0 cm. Renal parenchymal echotexture and thickness are normal. There is an upper pole cyst measuring 1.9 x 1.7 x 1.7 cm. There is no hydronephrosis or renal calculi. Left Kidney: The left kidney measures 12.3 x 6.5 x 5.2 cm. Renal parenchymal echotexture and thickness are normal. There is a complex cyst at the lower pole measuring 7.0 x 4.6 x 5.4 cm (previously 6.3 x 4.2 x 6.1 cm). This may demonstrate wall thickening versus volume averaging with the adjacent cortex. There is internal debris. There is a 6 x 3 x 5 mm nonobstructing calculus at the lower pole. There is no hydronephrosis. US/US renal BI IMPRESSION: 7.0 x 4.6 x 5.4 cm complex cystic lesion at the lower pole of the right kidney. Further evaluation with renal protocol CT is recommended. Electronically signed by: Genaro Galeana MD 06/09/2024 11:46 AM EDT
== END 2024-06-07 14:04 | disposition home or self-care (01) ==
LOC: HO.US 14:03
PROVIDERS: PCP Internal Medicine; Visit Provider Nurse Practitioner Family
DX: N28.1 Cyst of kidney, acquired (principal); N20.0 Calculus of kidney
CPT/HCPCS: 76775

== ENCOUNTER → 2024-06-07 14:05 | Outpatient (BNV) | payer BC, SELFPAY | PROVIDERS: PCP Internal Medicine; Visit Provider Radiology Diagnostic Radiology | DX: N28.1 Cyst of kidney, acquired (principal) | CPT/HCPCS: 76775 ==

== ENCOUNTER 2024-06-08 16:15 | Outpatient (AMB) | payer BC, SELFPAY ==
--- NOTE | 2024-06-08 16:15 | A.OFFVIS_ITS ---
Intake Visit Reasons: 1yr/US Intake Note: Patient presents today for follow up on: ultrasound results, kidney stone, and renal cyst Imaging Completed: 06/07/24 Urology Medications: vitamin B6 Blood Thinner: none Wheel Truer Required: No Accompanied by: Self / Same As Patient Allergies No Known Allergies Allergy (Verified 06/08/24 20:47) Medication List - Last Reconciled 06/08/24 by PORFIRIO Kinney lisinopril 10 mg PO DAILY loratadine 10 mg PO DAILY omeprazole 40 mg PO DAILY PRN pyridoxine (vitamin B6) 50 mg PO DAILY 90 days simvastatin 20 mg PO DAILY HPI Comments Details: Oc is a pleasant 63 year old male patient of Dr. Manning. He has a past medical history of renal cysts, nephrolithiasis, gallstones, hypercholesteremia, and hypertension. He is being followed up on today via telehealth for his nephrolithiasis and renal cyst. In discussion with the patient today he reports to be doing and feeling well. He denies having had any bothersome urinary issues or concerns since his last office visit here over a year ago. Recent renal imaging results remain pending however unofficial report was reviewed right kidney with no hydronephrosis or renal calculi. Upper pole 1.9 cm cyst. Left kidney with nonobstructing lower pole stone measuring 0.6 cm. Multiple left renal cysts largest at the lower pole measuring 7.0 cm and noted to be complex with calcifications. This is considered to be a Bosniak 2 F category by previous imaging. We discussed stability of renal cyst when compared to previous imaging. We also discussed new noted nephrolithiasis. He does have a longstanding history of nephrolithiasis and reports compliance with vitamin B6 and adequate hydration. He currently denies any bothersome urinary issues. He denies urinary urgency, urinary frequency, incontinence, nocturia, hematuria, dysuria, foul smelling urine, changes to urinary stream, flank pain, fever, and or chills. He is happy with his current voiding parameters. In office urinalysis results reviewed with the patient today. He otherwise offers no other issues or concerns at this time. In review of patient's chart it appears PSAs are as follows: 04/03 0.5, 04/05 0.3, 06/04 0.3 PFSH Medical History Nocturnal hypoxemia Sinus bradycardia PAC (premature atrial contraction) PVC (premature ventricular contraction) CATARINA on CPAP Renal cyst Renal calculi Gallstones High cholesterol Hypertension Surgical History Hx of colonoscopy Family History Father CHF (congestive heart failure) Mother Pancreatic cancer Sister COPD (chronic obstructive pulmonary disease) HTN (hypertension) Social History Alcohol intake: never Patient Tobacco Use Status: Never used Tobacco Review of Systems Const Reports no additional complaints Eyes Reports no additional complaints ENT Reports no additional complaints Card Reports as per HPI Resp Reports no additional complaints GI Reports as per HPI Reports as per HPI Musc Reports no additional complaints Neuro Reports no additional complaints Psych Reports no additional complaints Endo Reports no additional complaints Bernardo/Lymph Reports no additional complaints Aller/Immun Reports no additional complaints Physical Exam Const General: cooperative Orientation/consciousness: patient oriented x3 Resp Effort & Inspection: able to speak in complete sentences Neuro General: patient oriented x3 Psych Speech and movement: Clear speech present Attitude: cooperative Insight: Fair insight present (Psych) Judgement: Fair judgement present (Psych) Telehealth Telehealth Telehealth Platform: Telephone Location of provider rendering services: practice address Location of patient: address on file Patient Identification confirmed using: Name, : Yes Telehealth method: voice only Patient verbally consented to treatment: Yes Patient verbally consented to billing insurance company: Yes Patient informed of any privacy concerns related to visit: Yes Minutes spent on Phone/Video with Pt.: 15 Assessment & Plan Assessment & Plan (1) Renal cyst: Code(s): N28.1 - Cyst of kidney, acquired Category: Medical Plan Recent unofficial renal imaging results reviewed with the patient today; as noted above. We discussed newly noted nephrolithiasis although patient with a longstanding history of nephrolithiasis. Continue vitamin B6. Discussed, educated, and stressed the importance of adequate hydration relation to nephrolithiasis as well as overall health and well-being. We discussed further workup to include 24 hour urine collection and labs. He currently denies any bothersome urinary issues or concerns. He reports be happy with current voiding parameters. Recent PSA results reviewed with the patient today; as noted above. Will continue with surveillance monitoring of renal cysts as well as nephrolithiasis. Follow-up in 6 months with imaging; or sooner with any issues, concerns, and or questions. Orders: Orders US renal BI 6 Months N20.0 - Calculus of kidney, N28.1 - Cyst of kidney, acquired Patient Instructions: The patient had an opportunity to ask questions regarding the treatment plan. All questions were answered. Physical exam, labs, and imaging were discussed and reviewed in detail. As well as risks, benefits, and discussion of treatment choices. No major barriers to understanding were identified. The patient expressed understanding and agreement with the above treatment plan. The patient was made aware they should contact our office by phone for worsening of their current condition, the appearance of new symptoms, or with any questions or concerns. Compliance is encouraged with any medications and follow up testing that is ordered. It is a privilege to be allowed the opportunity to participate in? your urological care.? Again, if you have any questions or concerns If you have any questions or concerns please do not hesitate to contact me. The office is [phone]. This note is constructed using voice recognition software. While every effort has been made to ensure accuracy painter and body mechanic apprentice errors may have been included. Yours sincerely, PORFIRIO Kinney Coding Level of Care Code Tele Est Pt Level 3 (51921) Complex EM visit Add On G2211 Diagnoses Renal cyst N28.1
== END 2024-06-08 16:40 | disposition home or self-care (01) ==
LOC: HO.HUSH 16:15
PROVIDERS: PCP Internal Medicine; Visit Provider Nurse Practitioner Family
DX: N28.1 Cyst of kidney, acquired (principal)
CPT/HCPCS: 99213

== ENCOUNTER → 2024-06-08 16:15 | Outpatient (BNVA) | payer BC, SELFPAY | PROVIDERS: PCP Internal Medicine; Visit Provider Nurse Practitioner Family ==

== ENCOUNTER 2024-07-09 12:59 | Outpatient (AMB) | payer BC, SELFPAY ==
[2024-07-09 13:07] VITALS: BP 128/72; PULSE 54; TEMP 36.9; O2SAT 97; BMI 39.9
--- NOTE | 2024-07-09 13:07 | AM.OFFWIN_ITS ---
Intake Vital Signs 07/09/24 13:07 Height 5 ft 10 in Weight 278 lb BMI 39.9 BP 128/72 Blood Pressure Location Rt brachial Position Sitting Pulse 54 Pulse Source Pulse Oximeter Temp 98.4 F Temp Source Oral Pulse Oximetry (%) 97 Oxygen Delivery Method Room Air Intake Visit Reasons: EP poison jocelyne Intake Note: Pt presents to the office today for c/o poison jocelyne on the left side of his face. Pt states this started 4 days ago after working in his yard. Pt states his face is itchy. Patient Tobacco Use Status: Never used Tobacco Allergies No Known Allergies Allergy (Verified 07/09/24 13:10) HPI EP poison jocelyne HPI Details This is a 63 year old male patient who presents today with a poison jocelyne rash. He states that he was working out in his yard this past weekend and shortly after this, developed a rash. He has had poison jocelyne previously and this feels/looks similar. He has been very itchy and been putting calamine lotion on with minimal relief. The rash is primarily on his face. [facility] Medical History Nocturnal hypoxemia Sinus bradycardia PAC (premature atrial contraction) PVC (premature ventricular contraction) CATARINA on CPAP Renal cyst Renal calculi Gallstones High cholesterol Hypertension Surgical History Hx of colonoscopy Family History Father CHF (congestive heart failure) Mother Pancreatic cancer Sister COPD (chronic obstructive pulmonary disease) HTN (hypertension) Social History Alcohol intake: never Patient Tobacco Use Status: Never used Tobacco Review of Systems Const All systems reviewed & are unremarkable except as noted in HPI and below Physical Exam Vital Signs: Last Vital Signs Temp 98.4 F 07/09/24 13:07 Pulse 54 07/09/24 13:07 BP 128/72 07/09/24 13:07 Pulse Ox 97 07/09/24 13:07 Oxygen Delivery Method Room Air 07/09/24 13:07 BMI result Body Mass Index 39.9 Const General: cooperative and no acute distress HEENT Head: Yes normal to inspection Ears: hearing grossly normal bilaterally Eyes General: appearance normal, both eyes and all related structures Resp Effort & Inspection: normal respiratory effort Auscultation: clear to auscultation bilaterally Cardio Rate: regular rate Rhythm: regular rhythm Skin Other: erythematous rash consistent with contact derm on face, primarily on left side. No open areas. Extrem General: Yes capillary refill normal and Yes no clubbing, cyanosis or edema Psych Appearance: grossly normal Mental Status: mental status grossly normal Speech and movement: Normal speech and movement present Assessment & Plan Assessment & Plan (1) Contact dermatitis due to plant: Code(s): L25.5 - Unspecified contact dermatitis due to plants, except food Plan: Contact derm from poison jocelyne affecting patient's face. Will start on prednisone taper and also hydroxyzine. We reviewed indications, use, possible side effects of these medications. He can continue to utilize calamine lotion as needed for symptom management. If he does not improve with treatment, or if rash worsens, he should return to the clinic or emergency department for evaluation. He verbalizes understanding and agrees to plan. Medications: New prednisone Take 4 tabs for two days, then take 3 tabs for two days, then take 2 tabs for two days, then take 1 tab for 2 days. 10 mg PO DAILY 20 tabs 0RF L25.5 - Un specified contact dermatitis due to plants, except food hydroxyzine HCl 25 mg PO BID PRN 10 tabs 0RF itching L25.5 - Unspecified contact dermatitis due to plants, except food Coding Level of Care Code Est Pt Level 4 (03581) Diagnoses Contact dermatitis due to plant L25.5
--- OUTSIDE RECORDS SUMMARY | 2024-07-09 13:13 | XMS_ITS ---
Author Organization [facility] Address [address] [place] [id number] Care Team Providers Care Medical Customer Service Representative Name Role Phone Chino Manning MD Primary Care Provider Yary Adan Jr, Kimo Unavailable REASON FOR VISIT gerd, screening Problems Problem Type SNOMED Code ICD Code Onset Dates Problem Status W/U Status Risk Notes Problem Gastroesophageal reflux disease (K21.9) Active confirmed Encounters Encounter Location Date Provider Diagnosis [facility] [place] [facility] [address] [place] [phone] 08/05/2023 Kimo Adan Jr Encounter for screening [...] Notes * ARLEN KAYOB:1960 (63 yo M)Acc No.[id number]:08/05/2023 EGD and COL/MAC Patient:?LULA KAY Provider:?Kimo Adan MD :1960???Age:62 Y???Sex:Male Tereso e:08/05/2023 Address:[address] [place], [place] [id number] Pcp:Chino Manning MD Subjective: * Chief Complaints: * ???1. Gerd, screening. * Medical History:? Objective: * Vitals:? Assessment: * Assessment: 1.?Encounter for screening c olonoscopy - Z12.11 (Primary)???2.?Colon polyps - K63.5???3.?Gastroesophageal reflux disease - K21.9??? Plan: * Treatment: * Procedure Codes:?41448 COLON OSCOPY AND BIOPSY, 26039 UPPER GI ENDOSCOPY, BIOPSY * * The named appointment provid er may or may not be the originator of this progress note, and it is not deemed complete until electronically signed by the appointment provider. Sign off status: Pending * Provider:?Kimo Adan MD Date:?0 08/05/2023 Generated for Adithya madera/James/Cody on:?07/09/2024 01:12 PM EDT
== END 2024-07-09 13:46 | disposition home or self-care (01) ==
PROVIDERS: PCP Internal Medicine; Visit Provider Nurse Practitioner Family
DX: L25.5 Unspecified contact dermatitis due to plants, except food (principal)

== ENCOUNTER → 2024-07-09 12:59 | Outpatient (BNVA) | payer BC, SELFPAY | PROVIDERS: PCP Internal Medicine; Visit Provider Nurse Practitioner Family ==

== ENCOUNTER → 2024-09-21 07:46 | Outpatient (REF) | payer BC, SELFPAY ==
--- OUTSIDE RECORDS SUMMARY | 2023-08-05 06:50 | XMS_ITS ---
Author Organization [facility] Address [address] [place] [id number] Care Team Providers Care Portable Sawyer Name Role Phone Kerri (RETIRED) Chino LAN Primary Care Provide r Viktoriya Adan Jr, Kimo Unavailable [phone] REASON FOR VISIT gerd, screening Problems Problem Type SNOMED Code ICD Code Onset Dates Problem Status W/U Status Risk Notes Problem Gastroesophageal reflux disease (K21.9) Active confirmed Encounters Encounter Location Date Provider [place] [facility] [place] [address] [place] [phone] 08/05/2023 Kimo Adan Jr Encounter for screening colonoscopy Z12.11 ; Colon polyps K63.5 and Gastroesophageal reflux disease K21.9 Assessments Encounter Date Diagnosis (ICD Code) Assessment Notes Treatment Notes Treatment Clinical Notes Section Notes 08/05/2023 Encounter for screening colonoscopy (ICD-10 - Z12.11) 08/05/2023 Colon polyps (ICD-10 - K63.5) 08/05/2023 Gastroesophageal reflux disease (ICD-10 - K21.9) Plan Of Treatment No Information Progress Notes * NELL KAYMALVINOB:1960 (63 yo M)Acc No.[id number]:08/05/2023 EGD and COL/MAC Patient: LULA TERAN Provider: Caity Adan MD :1960 A ge:62 Y S ex:Male Date:08/05/2023 Address:[address] [place] [address] Pcp:Chino Manning (RETIRED )MD Subjective: * Chief Complaints: * 1 . Gerd, screening. * Medical History: Objective: * Vitals: Assessment: * Assessment: 1. E ncounter for screening colonoscopy - Z12.11 (Primary) 2 . C olon polyps - K63.5 3 . G astroesophageal reflux disease - K21.9 Plan: * Treatment: * Procedure Codes: 4 5380 COLONOSCOPY AND BIOPSY, 66890 UPPER GI ENDOSCOPY, BIOPSY * * The named appointment provid er may or may not be the originator of this progress note, and it is not deemed complete until electronically signed by the appointment provider. Sign off status: Pending * Provider: Caity Adan MD Date: 0 08/05/2023 Generated for Adithya madera/James/Jefferyitting on: 0 09/21/2024 07:48 AM EDT
--- NOTE | 2024-09-21 07:49 | CA_ITS ---
Transthoracic Echocardiogram Patient (Last, First, Middle): Oc Urena J Gender: Male Date of : 1960 Age: 63 Procedure Date: 09/21/2024 Procedure Type: Transthoracic Echocardiogram Location: OP Height: 177.8 cm Weight: 126.1 kg BSA: 2.40 m2 Heart Rate: bpm BP: 128 / 66 mmHg Envelope Patternmaker: TO Referring MD: Etienne Barakat MD Symptoms: I49.3 - Ventricular premature depolarization Study Quality: Technically Difficult/Contrast ECG Rhythm: Sinus with PVCs Conclusions: - The left ventricular systolic function is normal. The visually estimated ejection fraction is between 55-60%. - No obvious valvular pathology seen on this study. - There is mild dilatation of the ascending aorta measuring 4.10 cm. Findings Procedure Information Contrast agent, definity, is being given per protocol without apparent complications. Left Ventricle Normal left ventricular cavity size. There is normal left ventricular wall thickness. The left ventricular systolic function is normal. The visually estimated ejection fraction is between 55-60%. Diastolic function is normal for age. Right Ventricle Normal right ventricular cavity size and systolic function. Atria The left atrium is mildly dilated. The right atrium is normal in size. Aortic Valve There is a normal trileaflet aortic valve. There is no aortic valve stenosis. There is no aortic valve regurgitation. Mitral Valve The mitral valve appears normal. There is no mitral valve regurgitation. There is no mitral valve stenosis. Pulmonic Valve The pulmonic valve is likely normal. Tricuspid Valve There is trace tricuspid valve regurgitation. There is no evidence of pulmonary hypertension. Great Vessels There is mild dilatation of the ascending aorta measuring 4.10 cm. Venous The inferior vena cava is dilated and collapses greater than 50% with inspiration. Pericardium/Pleural There is no evidence of pericardial effusion. Prior Study Comparison Changes noted compared to prior study dated: 07/13/2021. see comment on ascending aorta. Recommendations, Care & Conclusions No obvious valvular pathology seen on this study. Measurements 2D Linear Measurements IVSd: 0.96 0.6-0.9/0.6-1.0 cm LVIDd: 6.03 3.9-5.3/4.2-5.9 cm LVIDd Index: 2.51 2.4-3.2/2.2-3.1 cm/m2 LVIDs: 3.36 2.0-3.6 cm LVPWd: 0.84 0.7-1.1 cm LA Diam: 3.90 2.7-3.8/3.0-4.0 cm LAIDs Index: 1.63 1.5-2.3 cm/m2 LV Mass: 271.03 67-162/88-224 g LV Mass Index: 112.93 43-95/49-115 g/m2 LVOT Diam: 2.60 3.0+(-)1.3 cm 2D Systolic Function EF 4C: 57.10 >55% Mitral Valve MV Pk E: 0.55 MV PK A: 0.31 MV Decel Time: 297.00 E/A: 1.80 E'Lateral: 11.40 E'Medial: 6.74 E/E' Med: 8.10 E/E' Lat: 4.80 PHT: 87.00 MVA PHT: 2.53 Decel Cataño: 1.85 Aortic Valve AoV Pk Cruzito: 1.43 AoV Pk Grad: 8.00 LVOT LVOT Pk Cruzito: 0.95 LVOT Mn Cruzito: 0.67 LVOT VTI: 0.22 LVOT Pk Grad: 4.00 LVOT Mn Grad: 2.00 LVOT Diam: 2.60 LVOT Area: 5.31 Diastolic Function MV Pk E: 0.55 MV Pk A: 0.31 E/A: 1.80 E'Medial: 6.74 E/E' Med: 8.10 E' Laterial: 11.40 E/E' Lat: 4.80 Right Ventricle TVS' Cruzito: 13.20 Tricuspid Valve RA Press: 15.00 Great Vessels Aorta Sinus of Valsalva: 3.66 2.0-3.[address] [place]: 2.83 1.7-3.4 cm Ao Asc: 4.10 2.1-3.4 cm Updated in Other Vendor System with Status of Final Etienne Barakat MD electronically signed on 09/23/2024 2:29:34 PM with status of Final
--- NOTE | 2024-09-21 07:49 | HM_ITS ---
Conclusion: 1. Patient was monitored for total period of 3 days 2. Baseline was normal sinus rhythm with average heart rate of 52 beats per minute 3. Frequent PACs noted with total burden of 9.35% without any significant tachyarrhythmias 4. Frequent PVCs noted with total burden of 18.72% with 1 5 beat run of nonsustained VT at 127 beats per minute 5. No patient reported events MTDD
== END ==
LOC: HO.CARD 07:46
PROVIDERS: PCP Internal Medicine; Visit Provider Internal Medicine
DX: G47.33 Obstructive sleep apnea (adult) (pediatric) (principal); I49.3 Ventricular premature depolarization; E66.01 Morbid (severe) obesity due to excess calories; Z68.39 Body mass index [BMI] 39.0-39.9, adult
CPT/HCPCS: 93242; 93306; Q9957

== ENCOUNTER → 2024-09-21 07:49 | Outpatient (BNV) | payer BC, SELFPAY | PROVIDERS: PCP Internal Medicine; Visit Provider Internal Medicine | DX: R94.31 Abnormal electrocardiogram [ECG] [EKG] (principal); I51.7 Cardiomegaly; I77.810 Thoracic aortic ectasia | CPT/HCPCS: 93306 ==

== ENCOUNTER 2024-09-21 15:04 | Outpatient (AMB) | payer BC, SELFPAY ==
--- NOTE | 2024-09-21 15:19 | A.OFFVIS_ITS ---
Vital Signs 09/21/24 15:20 Height 5 ft 10 in Weight 276 lb 10.882 oz BMI 39.7 BP 138/80 Blood Pressure Location Lt brachial Position Sitting Pulse 43 L Pulse Source Pulse Oximeter Pulse Oximetry (%) 97 Oxygen Delivery Method Room Air Intake Visit Reasons: Sleep apnea Intake Note: pt is here for follow up of paula, no issues with his breathing. Drilling Fluids Specialist Required: No Allergies No Known Allergies Allergy (Verified 09/21/24 15:39) Medication List - Last Reconciled 09/21/24 by Rio Chaparro MD lisinopril 10 mg PO DAILY loratadine 10 mg PO DAILY omeprazole 40 mg PO DAILY PRN pyridoxine (vitamin B6) 50 mg PO DAILY 90 days simvastatin 20 mg PO DAILY Do you need a note to return to daycare/school/sports/work: No HPI HPI Sleep apnea: Details: Oc 63 years old gentleman with morbid obesity is here for follow-up after 4 m onths. His compliance has improved markedly and now he is using the CPAP every night. He sleeps good and has no issue with the mask or CPAP device. As far as weight is concerned he has not made much progress yet. He denies daytime sleepiness. COUNT INCLUDES THE [facility] Medical History Nocturnal hypoxemia Sinus bradycardia PAC (premature atrial contraction) PVC (premature ventricular contraction) PAULA on CPAP Renal cyst Renal calculi Gallstones High cholesterol Hypertension Surgical History Hx of colonoscopy Family History Father CHF (congestive heart failure) Mother Pancreatic cancer Sister COPD (chronic obstructive pulmonary disease) HTN (hypertension) Social History Alcohol intake: never Patient Tobacco Use Status: Never used Tobacco Review of Systems Const All systems reviewed & are unremarkable except as noted in HPI and below Eyes Reports no additional complaints ENT Reports nasal congestion (off and on ) Card Denies chest pain, Reports irregular heart rhythm, Denies leg edema and Denies lightheadedness Resp Reports no additional complaints, Denies cough and Denies wheezing GI Reports no additional complaints Reports no additional complaints Skin/Breast Reports system reviewed and no additional complaints, except as documented Neuro Reports no additional complaints Psych Reports no additional complaints Aller/Immun Denies wheezing Physical Exam Vital Signs: Last Vital Signs Pulse 43 L 09/21/24 15:20 BP 138/80 09/21/24 15:20 Pulse Ox 97 09/21/24 15:20 Oxygen Delivery Method Room Air 09/21/24 15:20 BMI result Body Mass Index 39.7 He is grossly obese with a round face, short and obese neck. Const General: healthy appearing (Except for being grossly obese), comfortable, no acute distress, alert and awake Orientation/consciousness: patient oriented x3 HEENT Head: Yes normal to inspection General nose exam: No nasal polyps present and No nasal discharge present Face and sinus: Yes sinuses nontender Mouth: oropharynx abnormals (Oropharynx is narrow and crowded, Mallampati scale 4) Throat: Yes posterior oropharynx normal Eyes General: appearance normal, both eyes and all related structures Neck Neck: Yes normal visual inspection, Yes no lymphadenopathy, Yes trachea midline, Yes no JVD and Yes other (Neck circumference 20-1/2 inch) Thyroid: Thyroid normal Chest Chest palpation & inspection: normal inspection of the chest, normal palpation of entire chest wall and no tenderness Resp Effort & Inspection: normal respiratory effort Auscultation: clear to auscultation bilaterally, no rales and no wheezes Cardio Palpation: normal PMI Rate: regular rate Rhythm: regular rhythm Heart sounds: no gallops and no murmurs GI Palpation (GI): Soft to palpation, nontender, No hepatosplenomegaly present and no masses Auscultation: normal bowel sounds Back/Spine/Pelvis Thoracic/Lumbar Spine: thoracic and lumbar spine normal to inspection Skin General skin exam: no rashes or lesions noted Neuro General: patient oriented x3 and no focal motor deficits Cranial nerves: Yes CN's II-XII intact bilaterally Extrem General: Yes normal to inspection, Yes no clubbing, cyanosis or edema and Yes no calf tenderness Psych Appearance: grossly normal and well kempt Speech and movement: Normal speech and movement present Results Reviewed Results Reviewed: Compliance report for the last 30 nights, reviewed He has used 30/30 nights, 100% Average use it per night 5 hours 31 minutes. There is no significant air leak. Residual AHI 2.5 Assessment & Plan Assessment & Plan (1) Morbid obesity: Comment: Current BMI 39.7 He has been morbidly obese for the past many years. Has not been able to lose much weight, except a few lb. Code(s): E66.01 - Morbid (severe) obesity due to excess calories Category: Medical Plan: Encouraged to watch his diet and do some walking every day and try to lose more weight. (2) Obstructive sleep apnea: Comment: Patient has longstanding history of obstructive sleep apnea. Original sleep study in 2010 was consistent with very severe obstructive sleep apnea and nocturnal hypoxemia. Recent Home-based sleep study showed mild obstructive sleep apnea with mild nocturnal hypoxemia. With the use of CPAP his nocturnal hypoxemia was noted to have resolved. Since he has been started on the CPAP therapy his compliance has definitely improved. Now he is using 30/30 nights and at least for 5 and 1/2 hours every night. Code(s): G47.33 - Obstructive sleep apnea (adult) (pediatric) Category: Medical Plan: Commended for good compliance and advised to keep on using the CPAP every night for more than 5 hours per night, more hours the better. Coding Level of Care Code Est Pt Level 3 (44603) Diagnoses Morbid obesity E66.01 Obstructive sleep apnea G47.33
[2024-09-21 15:20] VITALS: BP 138/80; PULSE 43; O2SAT 97; BMI 39.7
== END 2024-09-21 15:43 | disposition home or self-care (01) ==
LOC: HO.HPS 15:04
PROVIDERS: PCP Internal Medicine; Visit Provider Internal Medicine
DX: E66.01 Morbid (severe) obesity due to excess calories (principal); G47.33 Obstructive sleep apnea (adult) (pediatric)
CPT/HCPCS: 99213

== ENCOUNTER 2024-10-13 14:06 | Outpatient (AMB) | payer BC, SELFPAY ==
--- OUTSIDE RECORDS SUMMARY | 2023-08-05 06:50 | XMS_ITS ---
Author Organization [facility] Address [address] [place] [phone] Care Team Providers Care Rolfer Name Role Phone Kerri (RETIRED) , Chino Primary Care Provide r Viktoriya Adan Jr, Kimo Unavailable [phone] REASON FOR VISIT gerd, screening Problems Problem Type SNOMED Code ICD Code Onset Dates Problem Status W/U Status Risk Notes Problem Gastroesophageal reflux disease (485689117) Gastroesophageal reflux disease (K21.9) Active confirmed Encounters Encounter Location Date Provider [place] [facility] [place] [address] [place] [phone] 08/05/2023 Kimo Adan Jr Encounter for screening [...] Notes * NELL KAYINDOB:1960 (63 yo M)Acc No.[id number]:08/05/2023 EGD and COL/MAC Patient: ULLA TERAN Provider: Caity Adan MD :1960 A ge:62 Y S ex:Male Date:08/05/2023 Address:[address] [place], [place] [phone] Pcp:Chino Manning (RETIRED )MD Subjective: * Chief Complaints: * 1 . Gerd, screening. * Medical History: Objective: * Vitals: Assessment: * Assessment: 1. E ncounter for screening colonoscopy - Z12.11 (Primary) 2 . C olon polyps - K63.5 3 . G astroesophageal reflux disease - K21.9 Plan: * Treatment: * Procedure Codes: 4 5380 COLONOSCOPY AND BIOPSY, 27024 UPPER GI ENDOSCOPY, BIOPSY * * The named appointment provid er may or may not be the originator of this progress note, and it is not deemed complete until electronically signed by the appointment provider. Sign off status: Pending * Provider: Caity Adan MD Date: 0 08/05/2023 Generated for Adithya madera/James/Jefferyitting on: 0 10/13/2024 04:23 PM EDT
--- NOTE | 2024-10-13 14:24 | A.OFFVIS_ITS ---
Vital Signs 10/13/24 14:25 Height 5 ft 10 in Weight 268 lb 15.423 oz BMI 38.6 BP 120/62 Blood Pressure Location Lt brachial Position Sitting Pulse 47 L Pulse Source Pulse Oximeter Intake Visit Reasons: follow up test results Allergies No Known Allergies Allergy (Verified 09/21/24 15:39) Medication List - Last Reconciled 10/13/24 by Etienne Barakat MD lisinopril 10 mg PO DAILY loratadine 10 mg PO DAILY omeprazole 40 mg PO DAILY PRN pyridoxine (vitamin B6) 50 mg PO DAILY 90 days simvastatin 20 mg PO DAILY HPI Comments Details: Oc returns for follow-up. In the past, he was seen regarding abnormal Holter. That showed frequent supraventricular/ventricular ectopy. Patient herself denies any history of coronary artery disease or myocardial infarction or cardiomyopathy or in fact any other cardiac issues. He is morbidly obese. History of obstructive sleep apnea and recently started using the CPAP. Otherwise, listed to be on med for blood pressure and cholesterol. Within limits of his activity, does not have any symptoms like chest pain or shortness of breath. No overt cardiac symptoms otherwise. Overall, he is doing good. No new concerns. [facility] Medical History Nocturnal hypoxemia Sinus bradycardia PAC (premature atrial contraction) PVC (premature ventricular contraction) CATARINA on CPAP Renal cyst Renal calculi Gallstones High cholesterol Hypertension Surgical History Hx of colonoscopy Family History Father CHF (congestive heart failure) Mother Pancreatic cancer Sister COPD (chronic obstructive pulmonary disease) HTN (hypertension) Social History Alcohol intake: never Patient Tobacco Use Status: Never used Tobacco Review of Systems Const Denies weakness ENT Denies dizziness Card Denies chest pain, Denies chest pain with activity, Denies syncope, Denies rapid heart rate, Denies pedal edema, Denies edema, Denies leg edema, Denies lightheadedness, Denies palpitations, Denies dyspnea, Denies dyspnea on exertion and Denies orthopnea Resp Denies cough, Denies dyspnea and Denies dyspnea on exertion GI Denies hematochezia and Denies change in stool character Musc Denies abnormal gait, Denies muscle cramps, Denies muscle weakness, Denies numbness, Denies radiating pain into limb and Denies tingling Neuro Denies abnormal gait, Denies dizziness, Denies syncope, Denies numbness, Denies tingling and Denies weakness Endo Denies palpitations Physical Exam Vital Signs: Last Vital Signs Pulse 47 L 10/13/24 14:25 BP 120/62 10/13/24 14:25 BMI result Body Mass Index 38.6 Const General: comfortable and no acute distress Orientation/consciousness: patient oriented x3 HEENT Other: Unremarkable Head: Yes normal to inspection Neck Neck: Yes normal visual inspection Chest Chest palpation & inspection: normal inspection of the chest Resp Auscultation: clear to auscultation bilaterally Cardio Palpation: normal PMI Heart sounds: S1 normal heart sound present, S2 normal heart sound present, no gallops, no murmurs and no rubs GI Palpation (GI): Soft to palpation Back/Spine/Pelvis Other: unremarkable Skin General skin exam: no rashes or lesions noted Neuro General: patient oriented x3 Extrem General: Yes normal to inspection Psych Mental Status: mental status grossly normal Assessment & Plan Assessment & Plan (1) PVC (premature ventricular contraction): Comment: He has frequent PVCs . In addition to PACs Code(s): I49.3 - Ventricular premature depolarization Category: Medical (2) PAC (premature atrial contraction): Comment: His cardiac workup including Holter monitor has shown frequent PACs. The presence of the obstructive sleep apnea may be contributing to the ar rhythmias. Code(s): I49.1 - Atrial premature depolarization Category: Medical (3) Morbid obesity: Comment: Current BMI 39.7 He has been morbidly obese for the past many years. Has not been able to lose much weight, except a few lb. Code(s): E66.01 - Morbid (severe) obesity due to excess calories Category: Medical (4) Obstructive sleep apnea: Comment: Patient has longstanding history of obstructive sleep apnea. Original sleep study in 2010 was consistent with very severe obstructive sleep apnea and nocturnal hypoxemia. Recent Home-based sleep study showed mild obstructive sleep apnea with mild nocturnal hypoxemia. With the use of CPAP his nocturnal hypoxemia was noted to have resolved. Since he has been started on the CPAP therapy his compliance has definitely improved. Now he is using 30/30 nights and at least for 5 and 1/2 hours every night. Code(s): G47.33 - Obstructive sleep apnea (adult) (pediatric) Category: Medical Plan Cardiac studies reviewed. In the echocardiogram, LVEF 60-65%; no significant valvular findings and otherwise unremarkable. In the stress test, he was able to exercise for 7.4 METS on Lester protocol; hypertensive blood pressure response. No EKG evidence of ischemia. Perfusion imaging was also unremarkable. In the recent Holter monitor, frequent PVCs with a burden of 18.7%. Frequent PACs with a burden of 9.3%. In the previous Holter, had a similar high burden. Overall, morbid obesity, obstructive sleep apnea, frequent supraventricular/ventricular ectopy. Still main recommendation is to lose weight as much able. With regard to obstructive sleep apnea, continue CPAP. We will pursue further workup with a cardiac MRI to look for any myocardial fibrosis or other abnormalities. Discussed about this today and he agrees. Follow-up after the MRI. Orders: Orders MR cardiac morph fnct w/wo con Today I42.9 - Cardiomyopathy, unspecified, I49.3 - Ventricular premature depolarization Coding Level of Care Code Est Pt Level 4 (41367) Complex EM visit Add On G2211 Diagnoses PVC (premature ventricular contraction) I49.3 PAC (premature atrial contraction) I49.1 Morbid obesity E66.01 Obstructive sleep apnea G47.33
[2024-10-13 14:25] VITALS: BP 120/62; PULSE 47; BMI 38.6
--- OUTSIDE RECORDS SUMMARY | 2024-10-13 16:23 | XMS_ITS | Patient Health Record ---
Author Organization [facility] Address [address] [place] [id number] Care Team Providers Care Cost Control Supervisor Name Role Phone Kerri (RETIRED) [place] LAN Primary Care Provide r Kimo Cruz Jr Unavailable Allergies No Known Allergies Reason For Referral No Information Medications Medication [...] Problem Status W/U Status Risk Notes Problem 627717244 Colon cancer screening (Z12.11) Active confirmed Problem 73297173 Encounter for other preprocedural examination (Z01.818) Active confirmed Problem Gastroesophageal reflux disease (711040729) Gastroesophageal reflux disease (K21.9) Active confirmed Problem 291620027 Gastroesophageal reflux disease, unspecified whether esophagitis present (K21.9) Active confirmed Plan Of Treatment Future Test Test Name Order Date COLONOSCOPY 03/26/2018 UPPER GI ENDOSCOPY 06/26/2023 COLONOSCOPY 06/26/2023 Insurance Providers Payer Name Payer Address Payer Phone Subscriber Number Group Number Insured Name Patient Relationship to Insured Coverage Start Date Coverage End Date [facility] [address] [facility] [place] [phone] [id number] LULA KAY Self - patient is the insured Medical (General) History Medical History History ICD Code hypertension post nasal drip sleep apnea, uses CPAP minor mitral valve prolapse peptic ulcer disease gallstones 07/2017 cyst on renal and kidney stones Surgical History Surgery Date(Month/Year)
== END 2024-10-13 14:57 | disposition home or self-care (01) ==
LOC: HO.HCS 14:06
PROVIDERS: PCP Internal Medicine; Visit Provider Internal Medicine
DX: I49.3 Ventricular premature depolarization (principal); I49.1 Atrial premature depolarization; E66.01 Morbid (severe) obesity due to excess calories; G47.33 Obstructive sleep apnea (adult) (pediatric)
CPT/HCPCS: 99214

== ENCOUNTER 2024-11-04 07:32 | Outpatient (REF) | payer BC, SELFPAY ==
--- OUTSIDE RECORDS SUMMARY | 2023-08-05 06:50 | XMS_ITS ---
Author Organization [facility] Address [address] [place] [address] Care Team Providers Care Die Stamper Name Role Phone Kerri (RETIRED) , Chino Primary Care Provide r Viktoriya Adan Jr, Kimo Unavailable [phone] REASON FOR VISIT gerd, screening Problems Problem Type SNOMED Code ICD Code Onset Dates Problem Status W/U Status Risk Notes Problem Gastroesophageal reflux disease (284380204) Gastroesophageal reflux disease (K21.9) Active confirmed Encounters Encounter Location Date Provider Diagnosis [facility] [place] [address] [place] [phone] 08/05/2023 Kimo Adan Jr Encounter for screening colonoscopy Z12.11 ; Colon polyps K63.5 and Gastroesophageal reflux disease K21.9 Assessments Encounter Date Diagnosis (ICD Code) Assessment Notes Treatment Notes Treatment Clinical Notes Section Notes 08/05/2023 Encounter for screening colonoscopy (ICD-10 - Z12.11) 08/05/2023 Colon polyps (ICD-10 - K63.5) 08/05/2023 Gastroesophageal reflux disease (ICD-10 - K21.9) Plan Of Treatment No Information Progress Notes * NELL KAYINDOB:1960 (63 yo M)Acc No.[id number]:08/05/2023 EGD and COL/MAC Patient: LULA TERAN Provider: Caity Adan MD :1960 A ge:62 Y S ex:Male Date:08/05/2023 Address:[address] [place], [place] [phone] Pcp:Chino Manning (RETIRED )MD Subjective: * Chief Complaints: * 1 . Gerd, screening. * Medical History: Objective: * Vitals: Assessment: * Assessment: 1. E ncounter for screening colonoscopy - Z12.11 (Primary) 2 . C olon polyps - K63.5 3 . G astroesophageal reflux disease - K21.9 Plan: * Treatment: * Procedure Codes: 4 5380 COLONOSCOPY AND BIOPSY, 10682 UPPER GI ENDOSCOPY, BIOPSY * * The named appointment provid er may or may not be the originator of this progress note, and it is not deemed complete until electronically signed by the appointment provider. Sign off status: Pending * Provider: Caity Adan MD Date: 0 08/05/2023 Generated for Adithya madera/James/Jefferyitting on: 0 11/04/2024 07:34 AM EDT
--- OUTSIDE RECORDS SUMMARY | 2024-11-04 07:34 | XMS_ITS | Patient Health Record ---
Author Organization [facility] Address [address] [place] [id number] Care Team Providers Care Carbide Die Maker Name Role Phone Kerri (RETIRED) [place] LAN [...] Problem Status W/U Status Risk Notes Problem [id number] Colon cancer screening (Z12.11) Active confirmed Problem 83518059 Encounter for other preprocedural examination (Z01.818) Active confirmed Problem Gastroesophageal reflux disease (050069300) Gastroesophageal reflux disease (K21.9) Active confirmed Problem 102125893 Gastroesophageal reflux disease, unspecified whether esophagitis present (K21.9) Active confirmed Plan Of Treatment Future Test Test Name Order Date COLONOSCOPY 03/26/2018 UPPER GI ENDOSCOPY 06/26/2023 COLONOSCOPY 06/26/2023 Insurance Providers Payer Name Payer Address Payer Phone Subscriber Number Group Number Insured Name Patient Relationship to Insured Coverage Start Date Coverage End Date [facility] [address] [facility] [place] [phone] [id number] LULA KAY Self - patient is the insured Medical (General) History Medical History History ICD Code hypertension post nasal drip sleep apnea, uses CPAP minor mitral valve prolapse peptic ulcer disease gallstones 07/2017 cyst on renal and kidney stones Surgical History Surgery Date(Month/Year)
[2024-11-04 08:48] LABS: Anion Gap 9 (12-20); Blood Urea Nitrogen 22 mg/dL (9-16); Calcium 8.9 mg/dL (8.4-10.2); Carbon Dioxide 29 mmol/L (22-29); Chloride 108 mmol/L (96-108); Estimated Glomerular Filt Rate > 60; Potassium 4.3 mmol/L (3.3-5.1); Sodium 142 mmol/L (135-145)
== END 2024-11-04 07:33 | disposition home or self-care (01) ==
LOC: HO.LAB 07:32
PROVIDERS: PCP Internal Medicine
DX: I49.3 Ventricular premature depolarization (principal)
CPT/HCPCS: 36415; 80048

== ENCOUNTER 2024-12-06 14:02 | Outpatient (REF) | payer BC, SELFPAY ==
--- OUTSIDE RECORDS SUMMARY | 2023-08-05 06:50 | XMS_ITS ---
Author Organization [facility] Address [address] [place] [phone] Care Team Providers Care Departmental Buyer Name Role Phone Kerri (RETIRED) , Chino Primary Care Provide r Viktoriya Adan Jr, Kimo Unavailable [phone] REASON FOR VISIT gerd, screening Problems Problem Type SNOMED Code ICD Code Onset Dates Problem Status W/U Status Risk Notes Problem Gastroesophageal reflux disease (409976448) Gastroesophageal reflux disease (K21.9) Active confirmed Encounters Encounter Location Date Provider Diagnosis [facility] [place] [address] [place] [phone] 08/05/2023 Kimo Adan Jr Encounter for screening [...] Notes * NELL KAYINDOB:1960 (63 yo M)Acc No.[id number]:08/05/2023 EGD and COL/MAC Patient: LULA TERAN Provider: Caity Adan MD :1960 A ge:62 Y S ex:Male Date:08/05/2023 Address:[address] [place], [place] [phone] Pcp:Chino Manning (RETIRED )MD Subjective: * Chief Complaints: * 1 . Gerd, screening. * Medical History: Objective: * Vitals: Assessment: * Assessment: 1. E ncounter for screening colonoscopy - Z12.11 (Primary) 2 . C olon polyps - K63.5 3 . G astroesophageal reflux disease - K21.9 Plan: * Treatment: * Procedure Codes: 4 5380 COLONOSCOPY AND BIOPSY, [address]6096 UPPER GI ENDOSCOPY, BIOPSY * * The named appointment provid er may or may not be the originator of this progress note, and it is not deemed complete until electronically signed by the appointment provider. Sign off status: Pending * Provider: Caity Adan MD Date: 0 08/05/2023 Generated for Adithya mdaera/James/Jefferyitting on: 1 05:43 PM EDT
--- NOTE | ~2024-12-06 | US_ITS ---
EXAMINATION: US KIDNEY BILATERAL HISTORY: N20.0 - Calculus of kidney TECHNIQUE: Real-time grayscale ultrasound imaging of the kidneys was performed and images were reviewed. COMPARISON: Comparison is made with the prior examination dated 06/07/2024. FINDINGS: Right kidney: The right kidney measures 12.6 x 5.3 x 5.2 cm. Renal parenchymal echotexture and thickness are normal. Multiple cysts are noted, the largest of which is in the interpolar region measuring 1.8 x 1.6 x 1.8 cm. There is no hydronephrosis or renal calculi. Left Kidney: The left kidney measures 14.1 x 6.0 x 4.9 cm. Renal parenchymal echotexture and thickness are normal. There is a 7.2 x 4.2 x 5.9 cm cystic lesion of the lower pole which demonstrates internal echoes and possible wall irregularity. There is no hydronephrosis or renal calculi. US/US renal BI IMPRESSION: Complicated 7.2 x 4.2 x 5.9 cm cystic lesion at the lower pole of the left kidney. Further evaluation with renal protocol CT or MRI is recommended to evaluate for malignancy. Electronically signed by: Genaro Galeana MD 12/06/2024 02:37 PM EDT RP
--- OUTSIDE RECORDS SUMMARY | 2024-12-06 17:43 | XMS_ITS | Patient Health Record ---
Author Organization [facility] Address [address] [place] [id number] Care Team Providers Care Finnish Rubber Name Role Phone Kerri (RETIRED) [place] LAN Primary Care Provide Kimo Boothe Jr Unavailable Allergies No Known Allergies Reason For Referral No Information Medications Medication SIG (Take, Route, Frequency, Duration) Notes Start Date End Date Status Lisinopril 10 MG 1 tablet Orally Once a day Active Loratadine 10 MG 1 tablet Orally Once a day; Duration: 30 day(s) Active Simvastatin 20 MG 1 tablet in the even ing Orally Once a day Active Vitamin B6 50 MG TAKE 1 TABLET BY ROXANA TH DAILY Oral; Duration: 90 Active Advil 200 MG 1 capsule with food or milk as needed Orally as needed/as directed Active Omeprazole 40 MG 1 Orally Once a day; Duration: 30 day(s) 08/08/2023 Active Fluticasone Propionate 50 MCG/ACT 1 spray in each nostril Nasally as needed Active MiraLax (colon prep) 17 GM/SCOOP mixed with Gatorade or Crystal Light Orally begin at 5:00 p.m. the day before the procedure; Duration: 1 day 06/26/2023 Active Immunizations Vaccine Route Administration Date Status Comme nts Influenza Unknown 03/26/2018 Refused Problems Problem Type SNOMED Code ICD Code Onset Dates Problem Status W/U Status Risk Notes Problem Colon cancer screening (049433585) Colon cancer screening (Z12.11) Active confirmed Problem Pre-procedure evaluation check (608726131) Encounter for other preprocedural examination (Z01.818) Active confirmed Problem Gastroesophageal reflux disease (612116034) Gastroesophageal reflux disease (K21.9) Active confirmed Problem Gastroesophageal reflux disease (589244262) Gastroesophageal reflux disease, unspecified whether esophagitis present (K21.9) Active confirmed Plan Of Treatment Future Test Test Name Order Date COLONOSCOPY 03/26/2018 UPPER GI ENDOSCOPY 06/26/2023 COLONOSCOPY 06/26/2023 Insurance Providers Payer Name Payer Address Payer Phone Subscriber Number Group Number Insured Name Patient Relationship to Insured Coverage Start Date Coverage End Date [facility] [address] [place] [phone] [id number] LULA KAY Self - patient is the insured Medical (General) History Medical History History ICD Code hypertension post nasal drip sleep apnea, uses CPAP minor mitral valve prolapse peptic ulcer disease gallstones 07/2017 cyst on renal and kidney stones Surgical History Surgery Date(Month/Year)
== END 2024-12-06 14:03 | disposition home or self-care (01) ==
LOC: HO.US 14:02
PROVIDERS: PCP Internal Medicine; Visit Provider Nurse Practitioner Family
DX: N20.0 Calculus of kidney (principal); N28.1 Cyst of kidney, acquired
CPT/HCPCS: 76775

== ENCOUNTER → 2024-12-06 14:04 | Outpatient (BNV) | payer BC, SELFPAY | PROVIDERS: PCP Internal Medicine; Visit Provider Radiology Diagnostic Radiology | DX: N28.9 Disorder of kidney and ureter, unspecified (principal) | CPT/HCPCS: 76775 ==

== ENCOUNTER 2025-01-03 15:14 | Outpatient (REF) | payer BC, SELFPAY ==
[2025-01-03 17:00] LABS: Alanine Aminotransferase 47 U/L (0-40); Albumin Level 4.5 g/dL (3.5-5.0); Alkaline Phosphatase 85 U/L (39-117); Anion Gap 11 (12-20); Aspartate Amino Transferase 43 U/L (5-37); Blood Urea Nitrogen 20 mg/dL (9-16); Calcium 9.0 mg/dL (8.4-10.2); Carbon Dioxide 29 mmol/L (22-29); Chloride 108 mmol/L (96-108); Cholesterol 108 mg/dL (<200); Estimated Glomerular Filt Rate > 60; HDL Cholesterol 36 mg/dL (>40); Potassium 4.7 mmol/L (3.3-5.1); Sodium 143 mmol/L (135-145); Total Protein 7.4 g/dL (6.5-8.0); Triglycerides 85 mg/dL (<150)
== END 2025-01-03 15:15 | disposition home or self-care (01) ==
LOC: HO.LAB 15:14
PROVIDERS: PCP Internal Medicine; Visit Provider Physician Assistant
DX: G47.33 Obstructive sleep apnea (adult) (pediatric) (principal); E66.01 Morbid (severe) obesity due to excess calories; I10 Essential (primary) hypertension; I49.3 Ventricular premature depolarization; E78.00 Pure hypercholesterolemia, unspecified; L98.9 Disorder of the skin and subcutaneous tissue, unspecified; M79.10 Myalgia, unspecified site; Z79.899 Other long term (current) drug therapy; Z68.39 Body mass index [BMI] 39.0-39.9, adult
CPT/HCPCS: 36415; 80048; 80061; 80076; 83036

== ENCOUNTER 2025-01-03 15:14 | Outpatient (AMB) | payer BC, SELFPAY ==
--- NOTE | 2025-01-03 15:18 | A.OFFPC_ITS ---
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 Accompanied by: Self / Same As Patient Allergies No Known Allergies Allergy (Verified 01/03/25 15:18) Medication List - Last Reconciled 01/03/25 by JARED Isaac atorvastatin (Lipitor) 20 mg PO DAILY lisinopril 10 mg PO DAILY loratadine 10 mg PO DAILY omeprazole 40 mg PO DAILY PRN pyridoxine (vitamin B6) 50 mg PO DAILY 90 days Tobacco use date assessed: 01/03/25 Dental Screening Dental Screen Date: 01/03/25 Did you have a dental visit in the last 12 months?: No Did you have a dental problem in the last 6 months where you did not have access to dental care?: Yes Was dental information given to patient?: Yes HPI HPI Comments History of Present Illness Details 64 year old male with history of PACs/PV Cs, CATARINA, htn, hld, gerd, obesity presenting today to establish care and for management of chronic conditions. HLD- on simvastatin 20mg daily HTN- bp controlled. On lisinopril 10mg daily CATARINA- Dr. Chaparro. Compliant with CPAP PAC/PVCs- follows with Dr. Barakat. holter showed frequent supraventricular/ventricular ectopy- PVC 18.7% burden, PAC 9.3%. Echo without any significant abnormality. Cardiac MRI has been ordered at [facility] to look for any myocardial fibrosis or other abnormality. Possibly sequela of viral infection Obesity- BMI 39.5. Has improved diet. Has been working on dietary improvement Concerns: Cyst L shoulder/trap- had I&D 2 years ago. Still scabbed. No drainage Leg soreness- ongoing for a while. Walks frequently. Takes advil. Drinks at least 64 oz Health maintenance: Last colonoscopy 07/2023 with 5 year follow-up advised to tubular adenoma. Dr. Adan ROS: see hpi EXAM: Constitutional - Awake and Alert, No apparent distress Eyes - PERRL Cardiovascular - S1S2, RRR, No edema Respiratory - Normal lung expansion, Normal respiratory effort, No respiratory distress, CTA bilaterally Extremities - no calf tenderness bilaterally, no swelling Skin - Warm/Dry. Nickel sized raised annular lesion with central scabbing Neurological - Alert & oriented x3 Psychological - Appropriate affect PFSH Medical History (Updated 01/03/25 @ 17:32 by JARED Isaac) Nocturnal hypoxemia Sinus bradycardia PAC (premature atrial contraction) PVC (premature ventricular contraction) CATARINA on CPAP Renal cyst Renal calculi Gallstones High cholesterol Hypertension Surgical History (Updated 12/31/24 @ 06:58 by Arpita Su) Hx of colonoscopy (~08/05/23) Family History Father CHF (congestive heart failure) Mother Pancreatic cancer Sister COPD (chronic obstructive pulmonary disease) HTN (hypertension) Social History Housing: House Alcohol intake: never Patient Tobacco Use Status: Never used Tobacco e-Cigarette/Vaping Use: Never Used service: No Current occupational status: employed Current occupation: [employer] Questionnaire AUDIT C Alcohol Use Questionnaire (AUDIT-C) 2. How many drinks containing alcohol do you have on a typical day when you are drinking?: 1 or 2 3. How often do you have six or more drinks on one occasion?: Never Total Score: 0 Physical exam (Primary Care) Vital Signs: Last Vital Signs Temp 98.9 F 01/03/25 15:24 Pulse 44 L 01/03/25 15:24 Resp 18 01/03/25 15:24 BP 128/78 01/03/25 15:24 Pulse Ox 94 01/03/25 15:24 Oxygen Delivery Method Room Air 01/03/25 15:24 BMI result Body Mass Index 39.5 Tobacco/Smoking Status: Tobacco use Status Tobacco use date assessed 01/03/25 01/03/25 15:20 Patient Tobacco Use Status Never used Tobacco 01/03/25 15:20 e-Cigarette/Vaping Use Never Used 01/03/25 15:26 Coding Level of Care Code New Pt Level 4 (81090) Complex visit Add On G2211 Diagnoses Hypertension I10 PVC (premature ventricular contraction) I49.3 High cholesterol E78.00 Obstructive sleep apnea G47.33 Skin lesion L98.9 Myalgia M79.10 Assessment & Plan Assessment & Plan (1) Hypertension: Code(s): I10 - Essential (primary) hypertension Category: Medical Plan: Controlled. Continue lisinopril 10 mg daily (2) PVC (premature ventricular contraction): Comment: He has frequent PVCs . In addition to PACs Code(s): I49.3 - Ventricular premature depolarization Category: Medical Plan: With bradycardia. Reviewed last note from cardiology as well as Holter monitor and echocardiogram. He will present for cardiac MRI as scheduled. Currently asymptomatic (3) High cholesterol: Code(s): E78.00 - Pure hypercholesterolemia, unspecified Category: Medical Plan: Discontinue simvastatin and initiate atorvastatin given myalgias. Recheck cholesterol levels (4) Obstructive sleep apnea: Comment: Patient has longstanding history of obstructive sleep apnea. Original sleep study in 2010 was consistent with very severe obstructive sleep apnea and nocturnal hypoxemia. Recent Home-based sleep study showed mild obstructive sleep apnea with mild nocturnal hypoxemia. With the use of CPAP his nocturnal hypoxemia was noted to have resolved. Since he has been started on the CPAP therapy his compliance has definitely improved. Now he is using 30/30 nights and at least for 5 and 1/2 hours every night. Code(s): G47.33 - Obstructive sleep apnea (adult) (pediatric) Category: Medical Plan: Continue following with pulmonology. Strict compliance with CPAP advised (5) Skin lesion: Code(s): L98.9 - Disorder of the skin and subcutaneous tissue, unspecified Category: Medical Plan: Etiology unclear. Refer to dermatology for further evaluation and management (6) Myalgia: Code(s): M79.10 - Myalgia, unspecified site Category: Medical Plan: As noted above Plan Follow-up in the office in 6 months. Labs to be completed following visit as well as several days prior to next visit Orders: Orders Basic Metabolic Panel Today E66.01 - Morbid (severe) obesity due to excess calories, G47.33 - Obstructive sleep apnea (adult) (pediatric), I10 - Essential (primary) hypertension Liver Panel Today E66.01 - Morbid (severe) obesity due to excess calories, G47.33 - Obstructive sleep apnea (adult) (pediatric), I10 - Essential (primary) hypertension Liver Panel 6 Months I10 - Essential (primary) hypertension, I49.3 - Ve ntricular premature depolarization, M79.10 - Myalgia, unspecified site, Z12.5 - Encounter for screening for malignant neoplasm of prostate Prostate Specific Antigen 6 Months I10 - Essential (primary) hypertension, I49.3 - Ventricular premature depolarization, M79.10 - Myalgia, unspecified site, Z12.5 - Encounter for screening for malignant neoplasm of prostate Hemoglobin A1c Today E66.01 - Morbid (severe) obesity due to excess calories, G47.33 - Obstructive sleep apnea (adult) (pediatric), I10 - Essential (primary) hypertension Lipid Panel Today E66.01 - Morbid (severe) obesity due to excess calories, G47.33 - Obstructive sleep apnea (adult) (pediatric), I10 - Essential (primary) hypertension Basic Metabolic Panel 6 Months I10 - Essential (primary) hypertension, I49.3 - Ventricular premature depolarization, M79.10 - Myalgia, unspecified site, Z12.5 - Encounter for screening for malignant neoplasm of prostate Lipid Panel 6 Months I10 - Essential (primary) hypertension, I49.3 - Ventricular premature depolarization, M79.10 - Myalgia, unspecified site, Z12.5 - Encounter for screening for malignant neoplasm of prostate Hemoglobin A1c 6 Months I10 - Essential (primary) hypertension, I49.3 - Ventricular premature depolarization, M79.10 - Myalgia, unspecified site, Z12.5 - Encounter for screening for malignant neoplasm of prostate Referrals Dermatology Referral L98.9 - Disorder of the skin and subcutaneous tissue, unspecified, Z12.83 - Encounter for screening for malignant neoplasm of skin Medications: New atorvastatin (Lipitor) 20 mg PO DAILY 90 tabs 1RF
[2025-01-03 15:24] VITALS: BP 128/78; PULSE 44; RESP 18; TEMP 37.2; O2SAT 94; BMI 39.5
== END 2025-01-03 15:48 | disposition home or self-care (01) ==
PROVIDERS: PCP Physician Assistant; Visit Provider Physician Assistant
DX: I10 Essential (primary) hypertension (principal); I49.3 Ventricular premature depolarization; E78.00 Pure hypercholesterolemia, unspecified; G47.33 Obstructive sleep apnea (adult) (pediatric); L98.9 Disorder of the skin and subcutaneous tissue, unspecified; M79.10 Myalgia, unspecified site